=== PATIENT | female | born 1980 | race Caucasian/White ===

== ENCOUNTER 2024-04-08 14:50 | Outpatient (AMB) | payer OTHER, SELFPAY ==
--- NOTE | 2024-04-08 14:52 | MHC.OFFVIS ---
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 Prior hx of colo/egd? EGD 2015. No colo. Concerns/Questions? [facility] 01/2024 for diverticulitis. GERD sx and abd pain. Post cholecystectomy. Pharmacy verified? [facility] [employer] [facility] Required: No Allergies adhesive Allergy (Mild, Verified 04/08/24 14:57) Rash fexofenadine [From Linda] Allergy (Unknown, Verified 04/08/24 14:57) Unknown latex Allergy (Unknown, Verified 04/08/24 14:57) Unknown paroxetine [From Paxil] Allergy (Unknown, Verified 04/08/24 14:57) Unknown valacyclovir Allergy (Unknown, Verified 04/08/24 14:57) Unknown HPI HPI Diverticulitis: Details: 43-year-old female with past medical history of PCOS, hyperlipidemia, obesity, history of breast CA in remission, anxiety, diverticulitis H pylori is here today for initial consultation. Patient was sent to us by her PCP. Patient has been seen in February in the ED for left lower quadrant pain. Patient was diagnosed with diverticulitis. At that time she had mild leukocytosis and sigmoid colon diverticulitis was found on CT scan. Prior to that patient was tested for H pylori, came back positive and treatment was sent for her to eradicate the bacteria. Patient is status post cholecystectomy and was having severe epigastric pain back in 2015 when she had upper endoscopy. Patient has been dealing with GI issues since then. Patient does not remember being on any medications to help her with diarrhea. Just recently patient reports that she is more constipated than anything. No more loose stools. Patient does not remember she ever was evaluated for celiac or for inflammatory bowel disease. Today patient reports that she has not had left lower quadrant pain for some time. During the episode she was on clear liquid diet for few days low fiber. However patient reports that she had to be placed on antibiotics twice as her pain would not go away with 1st round of antibiotic. Patient was placed on Augmentin. Patient denies any melena, hematochezia, unintentional weight loss or ribbon like stools. Never had colonoscopy in the past. No family history of CRC. Not on any anticoagulation medication. Patient has no issues with anesthesia. CT scan from ER was found to have thickening of the endometrium and patient just had a DIC in March. Awaiting still for results. Patient denies any nausea or vomiting. Currently she started taking Zepbound. Previously was taking Ozempic, however she was unable to get it covered. She has been on tirzepatide for the last couple months. Patient is trying to lose weight as she believes that lot of her issues are related to her being overweight. [facility] Medical History (Updated 04/08/24 @ 20:33 by Dodie Arthur [facility]) History of Helicobacter pylori infection Breast implant status delivery delivered Diverticulitis Migraine GERD (gastroesophageal reflux disease) Breast cancer Anxiety Hypercholesteremia Surgical History H/O lumpectomy H/O hernia repair History of mastectomy, total Hx of cholecystectomy (~2000) Family History Maternal Grandmother Breast CA Brother Colitis Social History Alcohol intake: current Comment: Occasional Review of Systems Const Denies weight gain and Denies weight loss ENT Reports no additional complaints, Denies dysphagia and Denies odynophagia Card Reports no additional complaints Resp Reports no additional complaints GI Reports abdominal pain (Occasional left lower quadrant), Denies belching, Denies melena, Denies bloating, Denies change in bowel habits, Reports constipation, Denies dysphagia, Denies excessive flatus, Reports dyspepsia, Reports heartburn, Denies diarrhea, Denies loose stools, Denies nausea, Denies odynophagia and Denies vomiting Reports no additional complaints Musc Reports no additional complaints Neuro Reports no additional complaints Psych Reports no additional complaints Endo Reports no additional complaints Physical Exam Vital Signs: Last Vital Signs Pulse 80 04/08/24 15:00 BP 116/74 04/08/24 15:00 Pulse Ox 97 04/08/24 15:00 Oxygen Delivery Method Room Air 01/03/25 15:00 BMI result Body Mass Index 43.3 Const General: healthy appearing and no acute distress Nutritional Appearance: obese Orientation/consciousness: patient oriented x3 Resp Effort & Inspection: normal respiratory effort, able to speak in complete sentences, no tracheal deviation and symmetric chest movement Auscultation: clear to auscultation bilaterally Cardio Rate: regular rate GI Inspection: Yes normal to inspection, No distended and Yes obesity Palpation (GI): Soft to palpation, not firm, nontender and No hepatosplenomegaly present Auscultation: normal bowel sounds General: Yes no CVA tenderness Back/Spine/Pelvis Back: no CVA tenderness Skin General skin exam: elasticity normal, turgor normal and dry skin Neuro General: patient oriented x3 Psych Appearance: grossly normal Mental Status: mental status grossly normal Assessment & Plan Assessment & Plan (1) Postprandial abdominal bloating: Code(s): R14.0 - Abdominal distension (gaseous) (2) GERD (gastroesophageal reflux disease): Code(s): K21.9 - Gastro-esophageal reflux disease without esophagitis Qualifiers: Esophagitis presence: esophagitis presence not specified Qualified Code(s): K21.9 - Gastro-esophageal reflux disease without esophagitis (3) Constipation: Code(s): K59.00 - Constipation, unspecified Qualifiers: Constipation type: slow transit constipation Qualified Code(s): K59.01 - Slow transit constipation (4) Postprandial diarrhea: Code(s): K52.9 - Noninfective gastroenteritis and colitis, unspecified (5) History of diverticulitis of colon: Code(s): Z87.19 - Personal history of other diseases of the digestive system (6) History of Helicobacter pylori infection: Code(s): Z86.19 - Personal history of other infectious and parasitic diseases Category: Medical Plan Diagnosed with diverticulitis in February. Patient reports that her mom also has history of diverticulitis as well as her brother. Patient will need to move her bowels better, okay to take at this time fiber with pre/probiotics. She was encouraged to increase fluid intake and activity to promote better bowel motility. Patient can take MiraLax if she will have abdominal pain to help her empty her bowels better. Colonoscopy is scheduled for patient for the end of this month. Patient had tested positive for H pylori in the past we will send her for upper endoscopy, however patient should have H pylori breath test prior to going for procedure. Patient had no issues with anesthesia in the past. No history of sleep apnea. Not on any anticoagulation medication. Patient denies any cardiac or respiratory symptoms. Just recently underwent sedation for endometrial biopsy. Patient will follow-up in the office after the procedure. Patient will call our office if she will have any GI concerning symptoms. She is agreeable to current plan of care and verbalizes understanding of instructions. She was given the opportunity to ask questions and all questions answered. Thank you for allowing me to participate in her care Orders: Orders H Pylori Breath Test Today K21.9 - Gastro-esophageal reflux disease without esophagitis Medications: New bisacodyl (Dulcolax (bisacodyl)) take 4 tabs at noon the day before your colonoscopy 20 mg (4 x 5 mg) PO ONCE 1 day 4 tabs 0RF Z12.11 - Encounter for screening for malignant neoplasm of colon polyethylene glycol 3350 (Miralax) As directed by gastroenterology department at [facility] 238 grams PO ONCE 238 grams 0RF Z12.11 - Encounter for screening for malignant neoplasm of colon Coding Level of Care Code New Pt Level 4 (99868) Diagnoses Postprandial abdominal bloating R14.0 Gastroesophageal reflux disease, unspecified whether esophagitis present K21.9 Esophagitis presence: esophagitis presence not specified Slow transit constipation K59.01 Constipation type: slow transit constipation Postprandial diarrhea K52.9 History of diverticulitis of colon Z87.19 History of Helicobacter pylori infection Z86.19 Time Spent (min) 45 Comment 30 minutes spent with patient and additional 15 minutes spent reviewing her records
[2024-04-08 15:00] VITALS: BP 116/74; PULSE 80; O2SAT 97; BMI 43.3
--- OUTSIDE RECORDS SUMMARY | 2024-04-08 16:07 | XMS_ITS | Continuity of Care Document ---
Author Organization 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 THERAPIST ASSISTANT Oncolog y Address [address] [place] [address]- Care Team Providers Care Oncology Technician Name Role Phone Cristian CONCEPCION, Melany Longo Primary Care Physician Encounter [facility] Date(s): 03/01/24 - 03/31/24 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 THERAPIST ASSISTANT Oncology [address] [place] [id number] Encounter Type: Triage Allergies, Adverse Reactions, Alerts Substance Criticality Severity Reaction Reaction Severity Status Paxil eye dilation CNC effects Active Adhesive Bandage eats my ski n paper tape severe reaction per pt Active Latex swelling Active valACYclovir hives whole body Active Linda whole body rash Acti ve Immunizations Given and Recorded Vaccine Date Status Refusal Reason SARS-CoV-2 (COVID-19) mRNA BNT-162b2 vac 05/10/21 Recorded SARS-CoV-2 (COVID-19) mRNA BNT-162b2 vac 08/01/20 Given pneumococcal 23-valent vaccine 02/04/19 Given pneumococcal 13-valent vaccine 11/25/18 Given influenza virus vaccine, live 1 01/02/18 Given influenza virus vaccine, inactivated 2 01/16/17 Gi venessa influenza virus vaccine, inactivated 3 07/13/15 Gi venessa tetanus/diphtheria/pertussis, acel(Tdap) 07/13/15 Given Diphtheria/Tet/Pertussis, Acel (oldterm) 4 10/18/10 Given diphtheria-tetanus toxoids (DT) 5 08/30/98 Given 1Admin Note: [facility] 2Result Comment: [id number] 3Admin Note: Declined 4Admin Note: declined 5Admin Note: Routine Medications acetaminophen-oxyCODONE 325 mg-5 mg oral tablet 1, tablet, By Mouth, Every 6 hours, PRN, # 12 tablet, Refills 0, Tot. Refills 0, Maintenance, Pain , Severe, 05/02/23 7:59:00 PM EST, Route to Pharmacy Electronically, [facility] Tablet, Partial fill upon patient request if the prescription is for a schedule II opioid drug., 163, cm, 05/02/23 18:05:00 EST, Height, 101, kg, 05/02/23 18:05:00 EST, Dry Weight Start Date: 05/02/23 Status: Ordered Quantity: 12.0 Unit: tablet Repeat number: 1 atorvastatin 20 mg oral tablet 1 tablet = 20 mg, By Mouth, Daily, 0 Refills, Maintenance, 03/15/24 9:19:00 AM EST, Partial fill upon patient request if the prescription is for a schedule II opioid drug. Start Date: 03/15/24 Status: Ordered Repeat number: 1 buPROPion 150 mg/24 hours (XL) oral tablet, extended release 1 tablet, By Mouth, Every 24 hours, # 30 tablet, 2 Refills, Maintenance, 12/31/21 8:52:00 AM EDT, [facility], 30, TAKE ONE TABLET BY MOUTH EVERY 24 HOURS, 163, cm, 12/19/21 10:57:00 EDT, Height, 111.9, kg, 12/23/21 12:23:00 EDT, Dry Weight Start Date: 12/31/21 Status: Ordered Quantity: 30.0 Unit: tablet Repeat number: 1 cephalexin monohydrate 500 mg oral capsule 1 capsule = 500 mg, By Mouth, 4 times a day, # 28 capsule, 0 Refills, Maintenance, 05/02/23 7:58:00 PM EST, Capsule, [facility], Partial fill upon patient request if the prescriptionis for a schedule II opioid drug., 163, cm, 05/02/23 18:05:00 EST, Height, 101, kg, 05/02/23 18:05:00 EST, Dry Weight Start Date: 05/02/23 Stop Date: 05/09/23 Status: Ordered Quantity: 28.0 Unit: capsule Repeat number: 1 cholecalciferol 2000 intl units oral capsule 1 capsule = 2,000 International_Units, By Mouth, Daily, Maintenance, 09/25/21 4:33:00 PM EDT, Capsule Start Date: 09/25/21 Status: Ordered Repeat number: 1 escitalopram 10 mg oral tablet 1 tablet = 10 mg, By Mouth, Daily, # 90 tablet, 0 Refills, Maintenance, 01/07/22 4:35:00 PM EDT, Tablet, Partial fill upon patient request if the prescription is for a schedule II opioid drug. Start Date: 01/07/22 Status: Ordered Quantity: 90.0 Unit: tablet Repeat number: 1 Flomax 0.4 mg oral capsule 0.4 mg, 1, capsule, By Mouth, Daily, # 7 capsule, Refills 0, Tot. Refills 0, Maintenance, 05/02/23 7:58:00 PM EST, Route to Pharmacy Electronically, [facility], Partial fill upon patient request if the prescription is for a schedule II opioid drug., 163, cm, 05/02/23 18:05:00 EST, Height, 101, kg, 05/02/23 18:05:00 EST, Dry Weight Start Date: 05/02/23 Stop Date: 05/09/23 Status: Ordered Quantity: 7.0 Unit: capsule Repeat number: 1 hydroCHLOROthiazide 12.5 mg oral capsule 1 capsule = 12.5 mg, By Mouth, Daily, # 30 capsule, 0 Refills, Maintenance, 01/21/22 11:12:00 AM EDT, Capsule, Partial fill upon patient request if the prescription is for a schedule II opioid drug. Start Date: 01/21/22 Status: Ordered Quantity: 30.0 Unit: capsule Repeat number: 1 ibuprofen 600 mg oral tablet 600 mg, 1, tablet, By Mouth, 4 times a day, # 120 tablet, Refills 0, Tot. Refills 0, Maintenance, 03/31/24 10:55:00 AM EST, Route to Pharmacy Electronically, [facility], Partial fill upon patient request if the prescription is for a schedule II opioid drug., 163, cm, 03/22/24 16:07:00 EST, Height, 116.1, kg, 03/31/24 9:30:00 EST, Dry Weight Start Date: 03/31/24 Status: Ordered Quantity: 120.0 Unit: tablet Repeat number: 1 Multi Vitamin+ 0 Refills, Maintenance, 09/12/19 11:10:00 AM EDT Start Date: 09/12/19 Status: Ordered Repeat number: 1 ondansetron 4 mg oral tablet, disintegrating 1 tablet = 4 mg, By Mouth, Every 8 hours, PRN as needed for nausea/vomiting, # 12 tablet, 0 Refills, Maintenance, 05/02/23 8:00:00 PM EST, DIS Tablet, [facility], Partial fill upon patient request if the prescription is for a schedule II opioid drug., 163, cm, 05/02/23 18:05:00 EST, Height, 101, kg, 05/02/23 18:05:00 EST, Dry Weight Start Date: 05/02/23 Status: Ordered Quantity: 12.0 Unit: tablet Repeat number: 1 Pepcid 20 mg oral tablet 1 tablet = 20 mg, By Mouth, Daily, Maintenance, 09/25/21 4:33:00 PM EDT, Tablet Start Date: 09/25/21 Status: Ordered Repeat number: 1 tamoxifen 20 mg oral tablet See Instructions, TAKE ONE TABLET BY MOUTH EVERY DAY, # 90 tablet, 3 Refills, Maintenance, 12/31/23 8:54:00 AM EDT, [facility], 163, cm, 09/15/23 12:59:00 EDT, Height, 109.9, kg, 09/15/23 12:59:00 EDT, Dry Weight Start Date: 12/31/23 Status: Ordered Quantity: 90.0 Unit: tablet Repeat number: 1 Tylenol Extra Strength 500 mg oral tablet 1 tablet = 500 mg, By Mouth, Every 4 hours, PRN as needed for fever, # 50 tablet, 0 Refills, Maintenance, 03/31/24 10:55:00 AM EST, Tablet, [facility], Partial fill upon patient request if the prescription is for a schedule II opioid drug., 163, cm, 03/22/24 16:07:00 EST, Height, 116.1, kg, 03/31/24 9:30:00 EST, Dry Weight Start Date: 03/31/24 Status: Ordered Quantity: 50.0 Unit: tablet Repeat number: 1 vitamin c vitamin c, See Instructions, Refills 0, Maintenance, 10/04/19 9:15:00 AM EDT, Supply Start Date: 10/04/19 Status: Ordered Repeat number: 1 Wegovy (1.7 mg dose) subcutaneous solution = 1.7 mg, Subcutaneous Injection, Every week, in the abdomen, thigh, or upper arm, # 3 mL, 0 Refills, Maintenance, 03/18/23 9:15:00 AM EST, Solution, Partial fill upon patient request if the prescription is for a schedule II opioid drug. Start Date: 03/18/23 Stop Date: 04/15/23 Status: Ordered Quantity: 3.0 Unit: mL Repeat number: 1 Zepbound 2.5 mg/0.5 mL subcutaneous solution = 2.5 mg, Subcutaneous Infusion, 0 Refills, Maintenance, 03/15/24 9:19:00 AM EST, Partial fill uponpatient request if the prescription is for a schedule II opioid drug. Start Date: 03/15/24 Status: Ordered Repeat number: 1 Problem List Condition Confirmation Course Effective Dates Status Health Status Informant Abnormal uterine bleeding (AUB) Confirmed Active Acne Confirmed 1998 Active Anxiety Confirmed Active Diverticulitis Confirmed Active Thickened endometrium Confirmed Active Gastroesophageal reflux disease Confirmed Active Hypercholesterolemia Confirmed Active Nephrolithiasis Confirmed Active Breast cancer of lower-outer quadrant of right female breast Confirmed Active Migraine Confirmed 2005 Active PCOS - Polycystic ovarian syndrome Confirmed 1996 Active Pericardial cyst Confirmed Active Trauma and stressor-related disorder Confirmed Active MDD (major depressive disorder), recurrent episode, moderate Confirmed Active Seasonal affective disorder Confirmed 1998 Active Severe obesity Confirmed Active Social History Social History Type Response Smoking Status Former smoker entered on: 07/31/14 Sex Sex Representation Female (finding) Implantable Device List Procedure Provider Procedure Date Device Type Site Reconstruction Breast with Insertion Rito Maier MD 12/23/21 Unknown Breast Left Device Identifier Serial Number Lot or Batch Number Manufacturing Date Expiration Date Distinct Identification Code MRI Safety Implantable Status Assigning Authority Unknown [id number] Unknown Unknown 11/04/25 Unknown Unknown Active Unknown Procedure Provider Procedure Date Device Type Site Reconstruction Breast with Insertion Rito Maier MD 02/23/19 Unknown Breast Right Device Identifier Serial Number Lot or Batch Number Manufacturing Date Expiration Date Distinct Identification Code MRI Safety Implantable Status Assigning Authority Unknown [id number] Unknown 08/04/23 Unknown Unknown Active Unknown Procedure Provider Procedure Date Device Type Site Reconstruction Breast with Insertion Rito Maier MD 02/23/19 Unknown Breast Left Device Identifier Serial Number Lot or Batch Number Manufacturing Date Expiration Date Distinct Identification Code MRI Safety Implantable Status Assigning Authority Unknown [id number] Unknown 07/05/23 Unknown Unknown Active Unknown Patient Care team information Care Team Personnel Name: Anuradha Melton Position: [facility] Onco RN Member Role: Primary Care Nurse Name: Rakel Lenz RN Position: [facility] RN Member Role: Primary Care Nurse Name: Shira Bond RN Position: [facility] RN Member Role: Primary Care Nurse Name: Jailene Mendieta RN Position: [facility] RN Member Role: Primary Care Nurse Name: Melany Foster NP Position: [facility] Associate Professional Member Role: PCP Address: [address] [place] [address] Emergency Medicine - [place], [place] [address] Telecom: Name: Suyapa Fabian MD Position: [facility] Physician - Oncology Member Role: Lifetime Consulting Physician Address: [address] [place] [address] Hematology Oncology [place], [place] [address] Telecom: Name: Yesenia Parish RN Position: [facility] RN Member Role: Primary Care Nurse Name: Annalise Mosquera RN Position: [facility] RN Member Role: Primary Care Nurse Care Team Related Persons Name: NAGI DOS SANTOS Name: ELIZABETH WHITMAN Insurance Providers Guarantor name: [employer] Information #: 1 Payer: [facility] NON P HMO Member Number: NA Policy Number: NA Group Number: NA
--- OUTSIDE RECORDS SUMMARY | 2024-04-08 16:08 | XMS_ITS ---
Author Organization [facility] Address [address], [place] [id number] Care Team Providers Care Training Assistant Name Role Phone WESLEY GÓMEZ Primary Care Provider Melany Foster Unavailable [phone] REASON FOR VISIT Rectal bleed - Hemorrhoid? Encounters Encounter Location Date Provider Diagnosis [facility] [place], [facility] [address], [place] [phone] 02/17/2024 Melany Foster PLAN OF TREATMENT Next Appt Details Provider Name:Melany Foster, 04/20/2024 09:30:00 AM, [address], [place], [phone], Progress Notes * BALBINA WHITMANDOB: [birth year] (43 yo F)Acc No.[id number]:02/17/2024 Patient:??BALBINA WHITMAN :1980?Age:43 Y?Sex:Fe male Phone: Address:[address] [place] [address] * true * Date:??
--- OUTSIDE RECORDS SUMMARY | 2024-04-08 16:08 | XMS_ITS | Patient Health Record ---
Author Organization [facility] Address [address], [place] [id number] Care Team Providers Care Explosives Detonator Name Role Phone WESLEY GÓMEZ Primary Care Provider [phone] Melany Foster Unavailable [phone] BEREKET CLOUD Unavailable [phone] ALLERGIES Allergen (clinical drug ingredient) Drug/Non Drug Allergy documented on EMR Reaction Allergy Type Onset Date Status surgical tape (uncoded) rash Allergy Active Linda hives Drug Allergy Active Biaxin Hives Drug Allergy Active paroxetine Paxil , Severity Observation:Mi ld to moderate , Drug Allergy Active valacyclovir Valtrex hives Drug Allergy Acti ve Adhesive rash Allergy Active Latex Latex rash Allergy Active metronidazole Metronidazole diarrhea, vomiting Drug Allergy Active REASON FOR REFERRAL Reason Atypical mole on lef t upper thigh. [facility] please Diagnosis 1 Atypical mole (D22.9 ) Referral Organization [facility] Referring Provider First Name Melany Referring Provider Last Name Cristian Referring Provider Speciality Nurse Prac titioner Referred Organization [facility] Referred Address [address], [id number], Referred Provider Specialty Dermatology General Notes LYNNETTE PAIZ 0 04/21/2023 09:02:52 AM >[facility] not in network with pts insurance- will need to find different specialist, LYNNETTE PAIZ 05/05/2023 10:14:58 AM >[facility] is in network-will send there instead, LYNNETTE PAIZ 05/05/2023 10:52:38 AM >demographics, referral and office note faxed to [facility] [phone] Referral Priority Routine Reason History of thyroid n odule. Thyroid- neck- soft tissue ultrasound. [facility] please Diagnosis 1 Thyroid nodule (E04. 1) Referral Organization [facility] Referring Provider First Name Melany Referring Provider Last Name Cristian Referring Provider Speciality Nurse Marvel montague Referred Organization [facility] Referred Address [address] [place], [id number], Referred Provider Specialty Radiology General Notes LYNNETTE PAIZ 0 2023 03:00:30 PM >[facility] form, referall and ov note faxed to [facility] [phone], LYNNETTE PAIZ 04/14/2023 02:14:13 PM >per [facility]- soft tissue is not needed. Order has been corrected and OK'd by provider. Faxed to [facility] Referral Priority Routine Reason 24 Holter Monitor AN D ECHO please for palpitations and new murmur Diagnosis 1 Palpitations (R00.2) Diagnosis 2 History of breast ca ncer in female (Z85.3) Diagnosis 3 Murmur (R01.1) Referral Organization [facility] Referring Provider First Name Melany Referring Provider Last Name Cristian Referring Provider Speciality Nurse Marvel montague Referred Organization [facility] Referred Address [address] [place], [id number], Referred Provider Specialty Cardiology General Notes LYNNETTE PAIZ 0 09/24/2023 09:32:39 AM >[facility] form completed- waiting to be scanned into chart, LYNNETTE PAIZ 09/24/2023 03:21:45 PM >order form, EKG, demographics, insurance info, order and office note faxed to [facility] [phone] Referral Priority Routine Reason Dr. Grover for evaluat ion and treatment of umbilical hernia Diagnosis 1 Umbilical hernia wit hout obstruction and without gangrene (K42.9) Referral Organization [facility] Referring Provider First Name Melany Referring Provider Last Name Cristian Referring Provider Speciality Nurse Marvel montague Referred Organization [facility] Referred Address [address] [facility] [id number] Referred Provider Specialty General Surg anup General Notes LYNNETTE PAIZ 0 09/23/2023 09:50:56 AM >demographics, insurance info, referral and office note faxed to [facility] for Dr. Grover [phone] Referral Priority Routine Reason Please refer to [facility] to help with choices given food sensitivities and obesity Diagnosis 1 Obesity (BMI 30-39.9 ) (E66.9) Diagnosis 2 Bloating (R14.0) Diagnosis 3 Prediabetes (R73.03) Diagnosis 4 Gastroesophageal ref lux disease without esophagitis (K21.9) Referral Organization [facility] Referring Provider First Name Melany Referring Provider Last Name Cristian Referring Provider Speciality Nurse Marvel montague Referred Organization [facility] Referred Address [address] [place] [id number], Referred Provider Specialty Nutrition General Notes ROMELIA PAIZAIL 0 09/23/2023 09:58:15 AM >demographics, insurance info, referral and office note faxed to [facility] [phone] Referral Priority Routine Reason Thickened endometriu m on CT (from [facility] ER), and amenorrhea, with significant family history of CA, and her history of Breast CA. please refer for evaluation Diagnosis 1 Thickened endometriu m (R93.89) Referral Organization [facility] Referring Provider First Name Melany Referring Provider Last Name Cristian Referring Provider Speciality Nurse Marvel montague Referred Organization [facility] Referred Address [address] [place] [id number] Referred Provider Specialty Gynecologic Oncology General Notes ROMELIA PAIZAIL 1 04/26/2023 02:11:47 PM >[facility] Specialty appt request form, demographics, insurance info, referral, office note and CT faxed to [facility] [phone] Referral Priority Routine Reason Please refer to [facility]. She has a new diagnosis of diverticulitis. Post treatment her symptoms resume. She continues with rectal bleeding and abdominal pain. Please refer for possible colonoscopy, evaluation and treatment Diagnosis 1 Acute diverticulitis (K57.92) Referral Organization [facility] Referring Provider First Name Melany Referring Provider Last Name Cristian Referring Provider Speciality Nurse Prac clari Referred Organization [facility] Referred Address [address] [place] [id number] Referred Provider Specialty Gastroentero logy General Notes ROMELIA PAIZAIL 1 04/18/2023 02:25:35 PM >demographics, insurance info, referral, on-call message, most recent office note, ER note and CT scan obtained in ER have been faxed to [facility] [phone] Referral Priority Stat MEDICATIONS Medication SIG (Take, Route, Frequency, Duration) Notes Start Date End Date Status TAMOXIFEN CITRATE 20MG TABS TAKE ONE TAB LET BY MOUTH EVERY DAY 10/21/2021 Active Ondansetron 4 MG 1 tablet on the tongue and allow to dissolve Orally once every 8 hrs for 10 days 10/26/2023 Not-Taking Vitamin D3 Active Wegovy 2.4 MG/0.75ML 0.75 mL Subcutaneous once a week for 30 days Not-Taking Benzonatate 200 MG 1 capsule as needed Orally two times a day for 7 days 03/18/2024 Active Famotidine 40 MG 1 tablet Orally Once a day 12/01/2023 Active Escitalopram Oxalate 10 MG TAKE ONE TABL ET BY MOUTH EVERY DAY Active Metamucil 0.36 GM as directed Orally Active hydroCHLOROthiazide 12.5 MG TAKE ONE CAP PORTILLO BY MOUTH EVERY DAY Active buPROPion HCl ER (XL) 150 MG TAKE ONE TABLET BY MOUTH EVERY DAY EVERY 24 HOURS for 90 Active Zepbound 5 MG/0.5ML 5 mg/ 0.5 mL Subcutaneous once a week for 30 days 03/18/2024 04/17/2024 Active Atorvastatin Calcium 20 MG TAKE 1 TABLET BY MOUTH ONCE DAILY IN THE EVENING. Active Albuterol Sulfate HFA 108 (90 Base) MCG/ACT 2 puff as needed Inhalation every 4 hrs for 30 days 03/18/2024 Active Probiotic Active Super B Complex Acti ve SOCIAL HISTORY Tobacco Use: Social History Observation Description Date Details (start date - stop date) Former Smoker NA - NA Sex Assigned At : Social History Observation Description Sex Assigned At Unknown Household Question Answer Notes Marital status: Number of adults in household: 2 Number of children in household: 2 Tobacco Use/Smoking Question Answer Notes Tobacco use: former smoker How long has it been since you last smoked? > 10 years Sexual History Question Answer Notes Had sex in the past 12 months (vaginal, oral, or anal)? Yes with Men only Section Notes: Lives in [facility] Lives in [facility] with & 2 children Lives in [facility] Lives in [facility] Lives in [facility] with & 2 children [place] children [place] 2 children [place] 2 children [place] 2 children [place] 2 children [place] 2 children [place] & 2 children [place] 2 children [place] in [place] with & 2 children Lives in [place] with & 2 children Lives in [place] with & 2 children Lives in [place] with & 2 children Lives in [place], [place] with & 2 children PROBLEMS Problem Type ICD Code Onset Dates Problem Status W/U Status Risk SNOMED Code Notes Problem Polycystic ovarian syndrome (E28.2) Active confirmed 912390013 Problem Mixed hyperlipidemia (E78.2) Active confirmed 779761532 Problem Essential (primary) hypertension (I10) Active confirmed 20311770 Problem Diverticulitis (K57.92) Active confirmed 167136355 Problem Gastroesophageal reflux disease without esophagitis (K21.9) Active confirmed 850327837 Problem Obesity (BMI 30-39.9) (E66.9) Active confirmed 472236804 Problem Thyroid nodule (E04.1) Active confirmed 058778197 Problem History of breast cancer in female (Z85.3) Active confirmed 181345536 Problem Severe obesity (BMI >= 40) (E66.01) Active confirmed 571507808 VITAL SIGNS Heart Rate 83 /min 02/04/2024 Temperature 98.7 degrees Fahrenheit 02/04/2024 Height-cm 162.56 cm 03/18/2024 Oximetry 98 % 02/04/2024 Blood pressure diastolic 80 mm Hg 02/04/2024 Weight-kg 115.21 kg 02/04/2024 Height 64 in 03/18/2024 Blood pressure systolic 124 mm Hg 02/04/2024 Weight 254.0 lbs 02/04/2024 BMI 43.59 kg/m2 02/04/2024 Encounters Encounter Location Date Provider Diagnosis [facility] [address] [place] [id number] 05/21/2023 WESLEY GÓMEZ [facility] [id number] 09/17/2023 Melany Foster [address] [id number] 09/23/2023 Melany Foster [address] [id number] 12/30/2023 Melany Foster [address] [id number] 2023 Melany Foster Thyroid nodule E04.1 ; Atypical mole D22.9 ; Obesity (BMI 30-39.9) E66.9 and Encounter to discuss test results Z71.[address] [id number] 05/21/2023 Melany Foster Mixed hyperlipidemia E78.2 ; Essential (primary) hypertension I10 ; Gastroesophageal reflux disease without esophagitis K21.9 ; Polycystic ovarian syndrome E28.2 and Obesity (BMI 30-39.9) E66.[address] [id number] 09/22/2023 Melany Foster Bloating R14.0 ; Encounter for general adult medical examination without abnormal findings Z00.00 ; Gastroesophageal reflux disease without esophagitis K21.9 ; Other fatigue R53.83 ; Umbilical hernia without obstruction and without gangrene K42.9 ; Encounter for screening for depression Z13.31 ; Encounter for screening for other disorder Z13.89 ; Mixed hyperlipidemia E78.2 ; Essential (primary) hypertension I10 ; Obesity (BMI 30-39.9) E66.9 ; Localized swelling of both lower legs R22.43 ; Murmur R01.1 and Palpitations R00.[address] [id number] 10/23/2023 Melany Foster Positive H. pylori t est A04.[address] [id number] 11/02/2023 WESLEY GÓMEZ Gastroesophageal ref lux disease without esophagitis K21.9 and H. pylori infection A04.[address] [id number] 11/18/2023 Melany Foster Helicobacter pylori (H. pylori) A04.[address] [place], [place] [id number] 12/01/2023 Melany Foster Gastroesophageal ref lux disease without esophagitis K21.9 ; Mixed hyperlipidemia E78.2 ; Essential (primary) hypertension I10 and Severe obesity (BMI >= 40) E66.01 [facility] [address], [place] [id number] 02/04/2024 Melnaymatthew Foster Severe obesity (BMI >= 40) E66.01 ; Thickened endometrium R93.89 ; Mixed hyperlipidemia E78.2 and Gastroesophageal reflux disease without esophagitis K21.9 [facility] [address], [place] [id number] 02/26/2024 Melany Foster Mixed hyperlipidemia E78.2 ; Severe obesity (BMI >= 40) E66.01 and Diverticulitis K57.[address] [id number] 03/18/2024 Melany Foster Acute cough R05.1 an d Obesity (BMI 30-39.9) E66.[address] [id number] 04/10/[address] [id number] 10/26/2023 Melany [facility], [address] [id number] 11/02/2023 WESLEY [facility], [address] [id number] 11/19/2023 Melany [facility], [address] [id number] 11/27/2023 BEREKET CLOUD [facility], [address] [id number] 12/01/2023 Melany [facility], [address] [id number] 02/12/2024 Melany [facility], [address] [id number] 02/12/2024 Melany [facility], [address] [id number] 02/13/2024 Melany Foster Acute diverticulitis K57.[address], [place] [id number] 02/17/2024 Melany Foster ASSESSMENTS Encounter Date Diagnosis Assessment Notes Treatment Notes Treatment Clinical Notes Section Notes 2023 Atypical mole (ICD-10 - D22.9) Janie has a history of complicated breast CA She is concerned about the change of a mole on her left upper thigh Given her history, will refer her to Dermatology for a skin check 05/21/2023 Mixed hyperlipidemia (ICD-10 - E78.2) Continue current statin Low fat, low cholesterol diet Exercise Check lipids, LFTs 05/21/2023 Essential (primary) hypertension (ICD-10 - I10) Continue medication as directed Low-salt diet Weight management Regular exercise Yearly microalbumin 2023 Thyroid nodule (ICD-10 - E04.1) Will obtain Ultrasound to assess nodule to make sure there is no change 09/22/2023 Encounter for general adult medical examination without abnormal findings (ICD-10 - Z00.00) We discussed short and long-term health goals. The exam today was without concerns, states feel safe at home. Reports having working CO2 and Smoke detectors. Encouraged to wear sunscreen. Reports wearing a seatbelt when driving or as a passenger. Encourage regular exercise of moderate intensity 30 min 5x/week. Labs reviewed EKG- Sinus Rhythm Rate- 70 MN Int 194 QRS dur 104 QT/QTc 324/344 10/23/2023 Positive H. pylori test (ICD-10 - A04.8) [facility] MAP tests reviewed H.Pylori was positive- will treat. Unable to tolerate Omeprazole- causes lower extremity edema- will continue on Pepcid AC that she takes at this time. FU 4 weeks post treatment Other results are indicative of residential PPI use. Will start pro/pre biotic after h. pylori treatment Will go and get food sensitivity testing done within the next couple of weeks 11/02/2023 Gastroesophageal reflux disease without esophagitis (ICD-10 - K21.9) 11/02/2023 H. pylori infection (ICD-10 - A04.8) We will hold off starting this new regimen for 1 more week, she will resume treatment once her ALONZO symptoms joycelyn. She should continue metamucil and probiotics in the interim-she is agreeable to this plan 11/18/2023 Helicobacter pylori (H. pylori) (ICD-10 - A04.8) Had adverse reaction to original antibiotics- saw another provider who changed her antibiotics. Janie states that she started with a rash on her chest again yesterday and this is now spreading up to her neck. She states that it is a little itchy. Denies a scratchy throat. Recommended taking Benadryl- however she is the sole provider with her children and this makes her sleepy. Recommended another non-drowsy antihistamine to help. Discussed concerning symptoms of allergic reaction and when to seek emergency medical care Recommended to stop taking antibiotics at this time- likely that she is allergic to the flagyl in the antibiotics. Will repeat h.pylori breath test Call the office if rash does not subside in 24-48 hours Recommend continue pro-prebiotics and pepcid - limit lactose food Monitor stools and GI symtpoms FU 2 weeks 12/01/2023 Mixed hyperlipidemia (ICD-10 - E78.2) Continue current statin Low fat, low cholesterol diet Exercise Check lipids, LFTs 09/22/2023 Bloating (ICD-10 - R14.0) 12/01/2023 Gastroesophageal reflux disease without esophagitis (ICD-10 - K21.9) Increase Famotidine to 40mg to help with acid reflux Continue Psyllium Husk and Probiotic 02/04/2024 Severe obesity (BMI >= 40) (ICD-10 - E66.01) Common treatments for overweight and obesity include losing weight through healthy eating, being more physically active, and making other changes to your usual habits. Weight-management programs may help some people lose weight or keep from regaining lost weight. Some people who have obesity are unable to lose enough weight to improve their health or are unable to keep from regaining weight. In such cases, a doctor may consider adding other treatments, including weight-loss medicines, weight-loss devices, or bariatric surgery. Experts recommend losing 5 to 10 percent of your body weight within the first 6 months of treatment. If you weigh 200 pounds, this means losing as little as 10 pounds. Losing 5 to 10 percent of your weight may help lower your chances of developing health problems related to overweight and obesity improve health problems related to overweight and obesity, such as high blood pressure and high cholesterol levels. Following a healthy eating plan with fewer calories is often the first step in trying to treat overweight and obesity. People who are overweight or have obesity should also start regular physical activity when they begin their healthy eating plan. Being active may help you use calories. Regular physical activity may help you stay at a healthy weight. Changing your eating and physical activity habits and lifestyle is difficult, but with a plan, effort, regular support, and patience, you may be able to lose weight and improve your health. The following tips may help you think about ways to lose weight, engage in regular physical activity, and improve health over the long-term. Be prepared for set backs they are normal. After a setback, like overeating at a family or workplace gathering, try to regroup and focus on getting back to your healthy eating plan as soon as you can. Try to eat only when you're sitting at your dining room or kitchen table. At work, avoid areas where treats may be available. Track your progress using online food or physical activity trackers, such as the Body Weight Finishing Machine Operator [employer], that can help you keep track of the foods you eat, your physical activity, and your weight. These tools may help you stick with it and stay motivated. Set goals. Having specific goals can help you stay on track. Rather than be more active, set a goal to walk 15 to 30 minutes before work or at lunch on Thursday and Thursday. If you miss a walk on Thursday, pick it up again Thursday. Seek support. Ask for help or encouragement from your family, friends, or health livestock caretaker. You can get support in person, through email or texting, or by talking on the phone. You can also join a support group. Specially trained health professionals can help you change your lifestyle. Has tried months (6-8 months) of diet and lifestyle changes with no success. She has tried intermittent fasting, she has see a amusement park entertainer Will order Zepbound As well as an extended food allergy sensitivity panel, Scripts through [employer], and [employer]. FU 2-3 weeks 02/04/2024 Thickened endometrium (ICD-10 - R93.89) Seen on CT scan when she was in ER Given breast CA and family history of CA will refer to Idalia Braga for further work-up 02/13/2024 Acute diverticulitis (ICD-10 - K57.92) 02/26/2024 Mixed hyperlipidemia (ICD-10 - E78.2) Continue current statin Low fat, low cholesterol diet Exercise Check lipids, LFTs 02/26/2024 Severe obesity (BMI >= 40) (ICD-10 - E66.01) Continue with supplements and lifestyle changes Peer to Peer regarding Zepbound- should be covered after clinical notes are sent to [facility]. Will resubmit at this time FU 3 weeks 03/18/2024 Acute cough (ICD-10 - R05.1) Increase water intake Cool mist humidifier Antihistamine to help with post nasal drip Flonase Albuterol PRN Please call the office if symptoms do not improve 03/18/2024 Obesity (BMI 30-39.9) (ICD-10 - E66.9) Discussed weight and it affect on health status Discussed dietary choices/nutritionis t referral Intermittent fasting Increase exercise as tolerated Increase Zepbound to 5mg weekly FU 4 weeks 02/04/2024 Mixed hyperlipidemia (ICD-10 - E78.2) Continue current statin Low fat, low cholesterol diet Exercise Check lipids, LFTs 02/26/2024 Diverticulitis (ICD-10 - K57.92) Stable at this time Believes she knows her trigger as she ate it the night before both of her flares Continue with GI referral in the event that she continues to have flares and need a colonoscopy 12/01/2023 Essential (primary) hypertension (ICD-10 - I10) Continue medication as directed Low-salt diet Weight management Regular exercise Yearly microalbumin Treatment of hypertension should involve nonpharmacologic therapy (also called lifestyle modification). Dietary salt restriction - In well-controlled randomized trials, the overall impact of moderate sodium reduction is a fall in blood pressure in hypertensive and normotensive individuals of 4.8/2.5 and 1.9/1.1 mmHg, respectively. Weight loss - Weight loss in overweight or obese individuals can lead to a significant fall in blood pressure independent of exercise. DASH diet - The Dietary Approaches to Stop Hypertension (DASH) dietary pattern is high in vegetables, fruits, low-fat dairy products, whole grains, poultry, fish, and nuts and low in sweets, sugar-sweetened beverages, and red meats. The DASH dietary pattern is consequently rich in potassium, magnesium, calcium, protein, and fiber but low in saturated fat, total fat, and cholesterol. Combining the DASH dietary pattern with modest sodium restriction produced an additive antihypertensive effect. Exercise - Aerobic, dynamic resistance and isometric resistance exercise can decrease systolic and diastolic pressure by, on average, 4 to 6 mmHg and 3 mmHg, respectively, independent of weight loss. Limited alcohol intake - Women who consume two or more alcoholic beverages per day and men who have three or more drinks per day have a significantly increased incidence of hypertension compared with nondrinkers. 09/22/2023 Gastroesophageal reflux disease without esophagitis (ICD-10 - K21.9) [facility] Allergy blood test for sensitvities Recommended psyllium husk to see if this helps with heartburn Will also refer to general surgery for possible hernia repair 05/21/2023 Gastroesophageal reflux disease without esophagitis (ICD-10 - K21.9) Well controlled on current med regimen Continue to limit caffeine, high fat, spicy foods Limit ibuprofen/NSAIDs 2023 Obesity (BMI 30-39.9) (ICD-10 - E66.9) Common treatments for overweight and obesity include losing weight through healthy eating, being more physically active, and making other changes to your usual habits. Weight-management programs may help some people lose weight or keep from regaining lost weight. Some people who have obesity are unable to lose enough weight to improve their health or are unable to keep from regaining weight. In such cases, a doctor may consider adding other treatments, including weight-loss medicines, weight-loss devices, or bariatric surgery. Experts recommend losing 5 to 10 percent of your body weight within the first 6 months of treatment. If you weigh 200 pounds, this means losing as little as 10 pounds. Losing 5 to 10 percent of your weight may help lower your chances of developing health problems related to overweight and obesity improve health problems related to overweight and obesity, such as high blood pressure and high cholesterol levels. Following a healthy eating plan with fewer calories is often the first step in trying to treat overweight and obesity. People who are overweight or have obesity should also start regular physical activity when they begin their healthy eating plan. Being active may help you use calories. Regular physical activity may help you stay at a healthy weight. Changing your eating and physical activity habits and lifestyle is difficult, but with a plan, effort, regular support, and patience, you may be able to lose weight and improve your health. The following tips may help you think about ways to lose weight, engage in regular physical activity, and improve health over the long-term. Be prepared for set backs they are normal. After a setback, like overeating at a family or workplace gathering, try to regroup and focus on getting back to your healthy eating plan as soon as you can. Try to eat only when you're sitting at your dining room or kitchen table. At work, avoid areas where treats may be available. Track your progress using online food or physical activity trackers, such as the Body Weight Finishing Machine Operator Automatic, that can help you keep track of the foods you eat, your physical activity, and your weight. These tools may help you stick with it and stay motivated. Set goals. Having specific goals can help you stay on track. Rather than be more active, set a goal to walk 15 to 30 minutes before work or at lunch on Thursday and Thursday. If you miss a walk on Thursday, pick it up again Thursday. Seek support. Ask for help or encouragement from your family, friends, or health livestock caretaker. You can get support in person, through email or texting, or by talking on the phone. You can also join a support group. Specially trained health professionals can help you change your lifestyle. Increase Wegovy 2023 Encounter to discuss test results (ICD-10 - Z71.2) All labs were reviewed and the results were explained to the patient in detail. Total time with patient >30 minutes which includes education and coordination of care. 09/22/2023 Other fatigue (ICD-10 - R53.83) Will change medication and see if this helps with symptoms and sexual health 05/21/2023 Polycystic ovarian syndrome (ICD-10 - E28.2) Educated about PCOS in that it is a hormonal disorder of the ovaries and adrenal glands that occurs over time. PCOS is associated with insulin resistance that causes excess testosterone and virilization characteristics. Often women notice unexplained weight gain. Long-term outcomes of untreated PCOS may include DM, HTN, Heart disease, and endometrial cancer therefore it is important to diagnose and begin treatment as soon as possible. Treatment goals will include: reducing insulin levels, decreasing testosterone production, maintaining healthy endometrium, and reestablishing hormonal balance 12/01/2023 Severe obesity (BMI >= 40) (ICD-10 - E66.01) Common treatments for overweight and obesity include losing weight through healthy eating, being more physically active, and making other changes to your usual habits. Weight-management programs may help some people lose weight or keep from regaining lost weight. Some people who have obesity are unable to lose enough weight to improve their health or are unable to keep from regaining weight. In such cases, a doctor may consider adding other treatments, including weight-loss medicines, weight-loss devices, or bariatric surgery. Experts recommend losing 5 to 10 percent of your body weight within the first 6 months of treatment. If you weigh 200 pounds, this means losing as little as 10 pounds. Losing 5 to 10 percent of your weight may help lower your chances of developing health problems related to overweight and obesity improve health problems related to overweight and obesity, such as high blood pressure and high cholesterol levels. Following a healthy eating plan with fewer calories is often the first step in trying to treat overweight and obesity. People who are overweight or have obesity should also start regular physical activity when they begin their healthy eating plan. Being active may help you use calories. Regular physical activity may help you stay at a healthy weight. Changing your eating and physical activity habits and lifestyle is difficult, but with a plan, effort, regular support, and patience, you may be able to lose weight and improve your health. The following tips may help you think about ways to lose weight, engage in regular physical activity, and improve health over the long-term. Be prepared for set backs they are normal. After a setback, like overeating at a family or workplace gathering, try to regroup and focus on getting back to your healthy eating plan as soon as you can. Try to eat only when you're sitting at your dining room or kitchen table. At work, avoid areas where treats may be available. Track your progress using online food or physical activity trackers, such as the Body Weight Finishing Machine Operator Automatic, that can help you keep track of the foods you eat, your physical activity, and your weight. These tools may help you stick with it and stay motivated. Set goals. Having specific goals can help you stay on track. Rather than be more active, set a goal to walk 15 to 30 minutes before work or at lunch on Thursday and Thursday. If you miss a walk on Thursday, pick it up again Thursday. Seek support. Ask for help or encouragement from your family, friends, or health livestock caretaker. You can get support in person, through email or texting, or by talking on the phone. You can also join a support group. Specially trained health professionals can help you change your lifestyle. 02/04/2024 Gastroesophageal reflux disease without esophagitis (ICD-10 - K21.9) Well controlled on current med regimen Continue to limit caffeine, high fat, spicy foods Limit ibuprofen/NSAIDs Continue with Pre/Probiotics 09/22/2023 Umbilical hernia without obstruction and without gangrene (ICD-10 - K42.9) general surgery for umbilical hernia 05/21/2023 Obesity (BMI 30-39.9) (ICD-10 - E66.9) Common treatments for overweight and obesity include losing weight through healthy eating, being more physically active, and making other changes to your usual habits. Weight-management programs may help some people lose weight or keep from regaining lost weight. Some people who have obesity are unable to lose enough weight to improve their health or are unable to keep from regaining weight. In such cases, a doctor may consider adding other treatments, including weight-loss medicines, weight-loss devices, or bariatric surgery. Experts recommend losing 5 to 10 percent of your body weight within the first 6 months of treatment. If you weigh 200 pounds, this means losing as little as 10 pounds. Losing 5 to 10 percent of your weight may help lower your chances of developing health problems related to overweight and obesity improve health problems related to overweight and obesity, such as high blood pressure and high cholesterol levels. Following a healthy eating plan with fewer calories is often the first step in trying to treat overweight and obesity. People who are overweight or have obesity should also start regular physical activity when they begin their healthy eating plan. Being active may help you use calories. Regular physical activity may help you stay at a healthy weight. Changing your eating and physical activity habits and lifestyle is difficult, but with a plan, effort, regular support, and patience, you may be able to lose weight and improve your health. The following tips may help you think about ways to lose weight, engage in regular physical activity, and improve health over the long-term. Be prepared for set backs they are normal. After a setback, like overeating at a family or workplace gathering, try to regroup and focus on getting back to your healthy eating plan as soon as you can. Try to eat only when you're sitting at your dining room or kitchen table. At work, avoid areas where treats may be available. Track your progress using online food or physical activity trackers, such as the Body Weight Finishing Machine Operator Automatic, that can help you keep track of the foods you eat, your physical activity, and your weight. These tools may help you stick with it and stay motivated. Set goals. Having specific goals can help you stay on track. Rather than be more active, set a goal to walk 15 to 30 minutes before work or at lunch on Thursday and Thursday. If you miss a walk on Thursday, pick it up again Thursday. Seek support. Ask for help or encouragement from your family, friends, or health livestock caretaker. You can get support in person, through email or texting, or by talking on the phone. You can also join a support group. Specially trained health professionals can help you change your lifestyle. 09/22/2023 Encounter for screening for depression (ICD-10 - Z13.31) PHQ9 Score: 10 moderate risk for major depressive disorder States that she feels most of this is situational and where her life is right now 09/22/2023 Encounter for screening for other disorder (ICD-10 - Z13.89) CAGE Questions Adapted to Include Drug Use (CAGE-AID) 1. Have you ever felt you ought to cut down on your drinking or drug use? N 2. Have people annoyed you by criticizing your drinking or drug use? N 3. Have you felt bad or guilty about your drinking or drug use? N 4. Have you ever had a drink or used drugs first thing in the morning to steady your nerves or to get rid of a hangover (eye-environmental protection geologist)? N Total Score: 0 Scoring: Item responses on the CAGE questions are scored 0 for no and 1 for yes answers, with a higher score being an indication of alcohol problems. A total score of two or greater is considered clinically significant. 09/22/2023 Mixed hyperlipidemia (ICD-10 - E78.2) Continue current statin Low fat, low cholesterol diet Exercise Check lipids, LFTs 09/22/2023 Essential (primary) hypertension (ICD-10 - I10) Continue medication as directed Low-salt diet Weight management Regular exercise Yearly microalbumin 09/22/2023 Obesity (BMI 30-39.9) (ICD-10 - E66.9) Common treatments for overweight and obesity include losing weight through healthy eating, being more physically active, and making other changes to your usual habits. Weight-management programs may help some people lose weight or keep from regaining lost weight. Some people who have obesity are unable to lose enough weight to improve their health or are unable to keep from regaining weight. In such cases, a doctor may consider adding other treatments, including weight-loss medicines, weight-loss devices, or bariatric surgery. Experts recommend losing 5 to 10 percent of your body weight within the first 6 months of treatment. If you weigh 200 pounds, this means losing as little as 10 pounds. Losing 5 to 10 percent of your weight may help lower your chances of developing health problems related to overweight and obesity improve health problems related to overweight and obesity, such as high blood pressure and high cholesterol levels. Following a healthy eating plan with fewer calories is often the first step in trying to treat overweight and obesity. People who are overweight or have obesity should also start regular physical activity when they begin their healthy eating plan. Being active may help you use calories. Regular physical activity may help you stay at a healthy weight. Changing your eating and physical activity habits and lifestyle is difficult, but with a plan, effort, regular support, and patience, you may be able to lose weight and improve your health. The following tips may help you think about ways to lose weight, engage in regular physical activity, and improve health over the long-term. Be prepared for set backs they are normal. After a setback, like overeating at a family or workplace gathering, try to regroup and focus on getting back to your healthy eating plan as soon as you can. Try to eat only when you're sitting at your dining room or kitchen table. At work, avoid areas where treats may be available. Track your progress using online food or physical activity trackers, such as the Body Weight Finishing Machine Operator Automatic, that can help you keep track of the foods you eat, your physical activity, and your weight. These tools may help you stick with it and stay motivated. Set goals. Having specific goals can help you stay on track. Rather than be more active, set a goal to walk 15 to 30 minutes before work or at lunch on Thursday and Thursday. If you miss a walk on Thursday, pick it up again Thursday. Seek support. Ask for help or encouragement from your family, friends, or health livestock caretaker. You can get support in person, through email or texting, or by talking on the phone. You can also join a support group. Specially trained health professionals can help you change your lifestyle. 09/22/2023 Localized swelling of both lower legs (ICD-10 - R22.43) Recommend compression stockings Will obtain ECHO 09/22/2023 Murmur (ICD-10 - R01.1) EKG obtained in office today. Consider referral to Cardiology after results of ECHO and Holter given significant family history of cardiac arrest 09/22/2023 Palpitations (ICD-10 - R00.2) 11/02/2023 Other Sound therapy induction today, she will be set up for remote use 12/01/2023 Other Labs printed an d mailed PLAN OF TREATMENT Pending Test Test Name Order Date Echocardiogram 09/22/2023 Ultrasound : Neck 2023 24 Holter 09/22/2023 Future Test Test Name Order Date HELICOBACTER PYLORI, UREA BREATH TEST (1 1177) 11/25/2023 LIPID PANEL, STANDARD (7600) 12/01/2023 ALBUMIN, RANDOM URINE W/CREATININE (6517 ) 12/01/2023 COMPREHENSIVE METABOLIC PANEL (86828) CBC (INCLUDES DIFF/PLT) (6399) URINALYSIS, COMPLETE W/REFLEX TO CULTURE (3020) 12/01/2023 C-REACTIVE PROTEIN (4420) 12/01/2023 HS CRP (11564) 12/01/2023 HEMOGLOBIN A1c (496) 12/01/2023 APOLIPOPROTEIN A1 (5223) 12/01/2023 APOLIPOPROTEIN B (5224) 12/01/2023 INSULIN (561) 12/01/2023 VITAMIN D,25-OH,TOTAL,IA (36776) 024 Next Appt Details Provider Name:Melany Foster, 04/20/2024 09:30:00 AM, [address] [place], [place] [address], [id number], Insurance Providers Payer Name Payer Address Payer Phone Subscriber Number Group Number Insured Name Patient Relationship to Insured Coverage Start Date Coverage End Date [address] [place] [phone] [id number] Self - patient is the insured MEDICAL (GENERAL) HISTORY Medical History History ICD Code hypercholesterolemia microscopic hematuria anxiety breast cancer depression gastroesophageal reflux disease migraines Diverticulitis Surgical History Surgery Date(Month/Year) C-sections 05/2010 & 07/2014 Cholecystectomy/Bile duct surgery 12/2000 Bilateral Mastectomy 02/2019 Hernia repair 02/2015 Lumpectomy 08/2018 Spacer removal 09/2021 Nipple removal/spacer implanted 12/2021 bilateral breast implants 03/2022 CT Scan 01/2024 Hospitalization History Reason Date(Month/Year) C-Sections
--- OUTSIDE RECORDS SUMMARY | 2024-04-08 16:08 | XMS_ITS | Patient Health Record ---
Author Organization [facility] Address [address] [place] [address] Care Team Providers Care Sprinkling System Irrigator Name Role Phone IVELISSE ELLIS Unavailable [phone] REASON FOR REFERRAL No Information Encounters Encounter Location Date Provider Diagnosis [facility] [address] [facility] [address] [place] [address] 12/30/2023 IVELISSE ELLIS PLAN OF TREATMENT No Information Insurance Providers Payer Name Payer Address Payer Phone Subscriber Number Group Number Insured Name Patient Relationship to Insured Coverage Start Date Coverage End Date [facility] [address] [place] [address] [phone] [id number] Janie Rhoades Self - patient is the insured
--- OUTSIDE RECORDS SUMMARY | 2024-04-08 16:08 | XMS_ITS ---
Author Organization [facility] Address [address] [place] [address] Care Team Providers Care Deputy Grand Jury Name Role Phone IVELISSE ELLIS Unavailable [phone] Encounters Encounter Location Date Provider Diagnosis [facility] [address] [facility] [address] [place] [address] 12/30/2023 IVELISSE ELLIS PLAN OF TREATMENT No Information Progress Notes * Janie RHOADESDOB: [birth year] (43 yo F)Acc No.[id number]:12/30/2023 Progress Notes Patient:??Janie RHOADES Provider:??IVELISSE ELLIS NP :[id number]?Age:43 Y?Sex:Fe male Date:12/30/2023 Address:[address] [place], [place] [id number] Subjective: * Chief Complaints: * ? * Medical History:?? Objective: Assessment: Plan: * Treatment: * Images: Billing Information: * Visit Code:?? * Procedure Codes:?? * Sign off status: Pending * Provider:??IVELISSE ELLIS NP Date:??12/06
--- OUTSIDE RECORDS SUMMARY | 2024-04-08 16:08 | XMS_ITS ---
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 Name Role Phone WESLEY GÓMEZ Primary Care Provider Melany Foster Unavailable [phone] ALLERGIES Allergen (clinical drug ingredient) Drug/Non Drug [...] diarrhea, vomiting Drug Allergy Active REASON FOR VISIT f/u 3w wellness MEDICATIONS Medication SIG (Take, Route, Frequency, Duration) Notes Start Date End Date Status Wegovy 2.4 MG/0.75ML 0.75 mL Subcutaneous once a week for 30 days Not-Taking Zepbound 2.5 MG/0.5ML 2.5 mg Subcutaneou s once a week for 30 days 02/04/2024 03/27/2024 Active Ondansetron 4 MG 1 tablet on the tongue and allow to dissolve Orally once every 8 hrs for 10 days 10/26/2023 Not-Taking Famotidine 40 MG 1 tablet Orally Once a day 12/01/2023 Active Escitalopram Oxalate 10 MG TAKE ONE TABL ET BY MOUTH EVERY DAY Active hydroCHLOROthiazide 12.5 MG TAKE ONE CAP PORTILLO BY MOUTH EVERY DAY Active Atorvastatin Calcium 20 MG TAKE 1 TABLET BY MOUTH ONCE DAILY IN THE EVENING. Active Probiotic Active buPROPion HCl ER (XL) 150 MG TAKE ONE TABLET BY MOUTH EVERY DAY EVERY 24 HOURS for 90 Active Super B Complex Acti ve Vitamin D3 Active Metamucil 0.36 GM as directed Orally Active TAMOXIFEN CITRATE 20MG TABS TAKE ONE TAB LET BY MOUTH EVERY DAY 10/21/2021 Active SOCIAL HISTORY Tobacco Use: Social History Observation [...] with Men only Section Notes: Lives in [facility] with & 2 children PROBLEMS Problem Type ICD Code Onset Dates Problem Status W/U Status Risk SNOMED Code Notes Problem Diverticulitis (K57.92) Active confirmed 056651288 VITAL SIGNS Height 64 in 02/26/2024 Height-cm 162.56 cm 02/26/2024 Encounters Encounter Location Date Provider Diagnosis [address] [id number] 02/26/2024 Melany Foster Mixed hyperlipidemia E78.2 ; Severe obesity (BMI >= 40) E66.01 and Diverticulitis K57.92 ASSESSMENTS Encounter Date Diagnosis Assessment Notes Treatment Notes Treatment Clinical Notes Section Notes 02/26/2024 Mixed hyperlipidemia (ICD-10 - E78.2) Continue current statin Low fat, low cholesterol diet Exercise Check lipids, LFTs 02/26/2024 Severe obesity (BMI >= 40) (ICD-10 - E66.01) Continue with supplements and lifestyle changes Peer to Peer regarding Zepbound- should be covered after clinical notes are sent to [facility]. Will resubmit at this time FU 3 weeks 02/26/2024 Diverticulitis (ICD-10 - K57.92) Stable at this time Believes she knows her trigger as she ate it the night before both of her flares Continue with GI referral in the event that she continues to have flares and need a colonoscopy PLAN OF TREATMENT Medication Medication Name Sig Start Date Stop Date Notes Zepbound 2.5 MG/0.5ML 2.5 mg Subcutaneou s once a week for 30 days 02/04/2024 03/27/2024 Famotidine 40 MG 1 tablet Orally Once a day 12/01/2023 Atorvastatin Calcium 20 MG TAKE 1 TABLET BY MOUTH ONCE DAILY IN THE EVENING. Probiotic Super B Complex Metamucil 0.36 GM as directed Orally Treatment Notes Assessment Notes Mixed hyperlipidemia Continue current statin Low fat, low cholesterol diet Exercise Check lipids, LFTs Severe obesity (BMI >= 40) Continue with supplements and lifestyle changes Peer to Peer regarding Zepbound- should be covered after clinical notes are sent to [facility]. Will resubmit at this time FU 3 weeks Diverticulitis Stable at this time Believes she knows her trigger as she ate it the night before both of her flares Continue with GI referral in the event that she continues to have flares and need a colonoscopy Next Appt Details Follow Up: 3 Weeks, Reason: Med FU Provider Name:Melany Foster, 04/20/2024 09:30:00 AM, [address] [place] [address], [phone], Progress Notes * JANIE WHITMANDOB: [birth year] (43 yo F)Acc No.[id number]:02/26/2024 Progress Note Patient:??JANIE WHITMAN Provider:??Melany Foster DNP :1980?Age:43 Y?Sex:Fe male Date:02/26/2024 Phone: Address:[address] [place] [address] [place], [id number] Pcp:WESLEY GÓMEZ Subjective: * Chief Complaints: * ?F/u 3w wellness * HPI: ?Patient Care Team:?Oncologist:??Dr. Antony @ [facility].? Dermatology- [facility]. ?Visit info:? Virtual Care Communication method: both audio and video ?Patient's location during visit: work ?Provider's location during visit: home office ?Verbal Consent Obtained: We know that your privacy is very important, and we want you to know that we take all steps to make sure your privacy is protected, including all confidentiality protections under the law. [facility]'s virtual care platforms are HIPAA compliant and meet other (federal and state) privacy and security laws. Even though your communications with [facility] are private and secure, there is always some risk with any information that is transmitted through the internet. ?Janie presents today, via Telehealth for 3w f/u wellness. ?She notes she just finished treatment for diverticulitis flare (things have been stable/controlled on that end) and is now suffering with a sinus infection. She has pressure and congestion mainly on right side. She is using Sinex and D-12 that helps temporarily. ?She also had a menstrual cycle - first one in 4 months. She has been unable to get an appt. 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 ?She has started the supplements and seems to be tolerating them well. ?She continues to feel frustrated with her weight loss. She states that she will order the food sensitivity testing to see if this can help improve her gut health. * ROS:?Reviewed. * Medical History:?? 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 Breast Ductal CA, Double Mastectomy [place] [facility] [place]/Dr. Goldstein.?? * OB History:?? Histo ry:??Total pregnancies:??3,??Full-term pregnancies:??2.??C section(s)??2.?? * Surgical History:?? s 05/2010 & 07/2014Cholecystectomy/Bile duct surgery 12/2000Bilateral Mastectomy 02/2019Hernia repair 02/2015Lumpectomy 08/2018Spacer removal 09/2021Nipple removal/spacer implanted ilateral breast implants T Scan 01/2024 * Hospitalization/Major Diagno stic Procedure:?? * Family History:??Father: dec eased 57 yrs, Heart Attack , High Cholesterol .??Mother: alive, No Health Concern .??Paternal Grandfather: 38 yrs, Heart Attack .??Paternal Grandmother: 29 yrs.??Maternal Grandfather: , Heart Attack , Diabetes .??Maternal Grandmother: , Breast CA .??Brother: alive, Colitis.?? * Social History:?Tobacco Use:??Tobacco Use/Smoking??Tobacco use:??former smoker,??How long has it been since you last smoked???> 10 years.?Sexual History:??Sexual History??Had sex in the past 12 months (vaginal, oral, or anal)???Yes,??with??Men only.?Drugs/Alcohol:??Do you smoke marijuana?: Admits - CBD. Do you drink alcohol?: Yes, Occasionally. ?Household:??Household??Marital status:??,??Number of adults in household:??2,??Number of children in household:??2.?Lives in [place], [place] with & 2 children. * Medications:??TakingMetamuci l 0.36 GM Capsule as directed Orally Probiotic Super B Complex TAMOXIFEN CITRATE 20MG TABS TAKE ONE TABLET BY MOUTH EVERY DAY Vitamin D3 hydroCHLOROthiazide 12.5 MG Capsule TAKE ONE CAPSULE BY MOUTH EVERY DAY buPROPion HCl ER (XL) 150 MG Tablet Extended Release 24 Hour TAKE ONE TABLET BY MOUTH EVERY DAY EVERY 24 HOURS Escitalopram Oxalate 10 MG Tablet TAKE ONE TABLET BY MOUTH EVERY DAY Atorvastatin Calcium 20 MG Tablet TAKE 1 TABLET BY MOUTH ONCE DAILY IN THE EVENING. Famotidine 40 MG Tablet 1 tablet Orally Once a day Taking Metamucil 0.36 GM Capsule as directed Orally Taking Probiotic Taking Super B Complex Taking TAMOXIFEN CITRATE 20MG TABS TAKE ONE TABLET BY MOUTH EVERY DAY Taking Vitamin D3 Taking hydroCHLOROthiazide 12.5 MG Capsule TAKE ONE CAPSULE BY MOUTH EVERY DAY Taking buPROPion HCl ER (XL) 150 MG Tablet Extended Release 24 Hour TAKE ONE TABLET BY MOUTH EVERY DAY EVERY 24 HOURS Taking Escitalopram Oxalate 10 MG Tablet TAKE ONE TABLET BY MOUTH EVERY DAY Taking Atorvastatin Calcium 20 MG Tablet TAKE 1 TABLET BY MOUTH ONCE DAILY IN THE EVENING. Taking Famotidine 40 MG Tablet 1 tablet Orally Once a day Not-TakingZepbound 2.5 MG/0.5ML Solution Auto-injector 2.5 mg Subcutaneous once a week , stop date 03/04/2024Ondansetron 4 MG Tablet Disintegrating 1 tablet on the tongue and allow to dissolve Orally once every 8 hrs As neededWegovy 2.4 MG/0.75ML Solution Auto-injector 0.75 mL Subcutaneous once a week Medication List reviewed and reconciled with the patientNot-Taking Zepbound 2.5 MG/0.5ML Solution Auto- injector 2.5 mg Subcutaneous once a week , stop date 03/04/2024Not-Taking Ondansetron 4 MG Tablet Disintegrating 1 tablet on the tongue and allow to dissolve Orally once every 8 hrs As neededNot-Taking Wegovy 2.4 MG/0.75ML Solution Auto-injector 0.75 mL Subcutaneous once a week Medication List reviewed and reconciled with the patient * Allergies:??Linda: hives - AllergyPaxil: , Severity Observation:Mild to moderate , - AllergyValtrex: hives - AllergyLatex: rash - Allergysurgical tape: rashAdhesive: rash - AllergyMetronidazole: diarrhea, vomiting - AllergyBiaxin: Hives - Allergy Objective: * Vitals:??Ht: 64 in, Ht-cm: 1 62.56 cm. * Examination: ?General Examination: ?General appearance: no acute distress, speaking full sentences, thoughts clear and appropriate. ? Head: normocephalic, atraumatic. ? Eyes: sclera anicteric. ? Oral cavity: with good dentition, tongue is midline. ? Lungs: non-labored breathing, no audible shortness of breath or wheezing. ? Neurologic: alert and oriented, cooperative with exam. ? Psych: with good judgement and insight, speech is clear and coherent, normal affect / mood. Assessment: * Assessment: 1.??Mixed hyperlipidemia - E 78.2 (Primary)??2.??Severe obesity (BMI >= 40) - E66.01??3.??Diverticulitis - K57.92?? Plan: * Treatment: 2.??Severe obesity (BMI >= 4 0)?? Refill Zepbound Solution Auto-injector, 2.5 MG/0.5ML, 2.5 mg, Subcutaneous, once a week, 30 days, 1, Refills 0.? Notes: Continue with supplements and lifestyle changes Peer to Peer regarding Zepbound- should be covered after clinical notes are sent to [facility]. Will resubmit at this time FU 3 weeks? 3.??Diverticulitis?? Continue Metamucil Capsule, 0.36 GM, as directed, Orally;??Continue Probiotic;??Continue Super B Complex;??Continue Famotidine Tablet, 40 MG, 1 tablet, Orally, Once a day.? Notes: Stable at this time Believes she knows her trigger as she ate it the night before both of her flares Continue with GI referral in the event that she continues to have flares and need a colonoscopy? * Procedure Codes:??[address] [facility] Established patient visit, 10-19 minutes, Modifiers: GT * Preventive Medicine:?Last CPE: 07/2021; 08/06/22; 09/22/23 Colonoscopy: No Endoscopy: 2016 for Gastroesophageal Reflux Disease Covid Vac: Yes Flu Vac: yes 01/12/2022: glucose 96; insulin 32.7; Tcol 224; trigs 143; HDL 54; LDL 141; APO B 112; Vitamin D 53.9 05/18/2022: glucose 92; insulin 32.2; Tcol 217; trigs 85; HDL 61; LDL 139; APO B 105 08/16/2022: glucose 84; insulin 50.9; Tcol 143; trigs 63; HDL 51; LDL 79; APO B 68; Vitamin D 57.2 04/04/23: glucose 84; insulin 32.5 09/17/23- insulin 17.7. * Follow Up:??3 Weeks (Reason: Med FU) * Billing Information: * Visit Code:?? * Procedure Codes:?? [address] [facility] Established patient visit, 10-19 minutes. Modifiers: GT * Sign off status: Completed true * Provider:??Melany Foster DNP Date:?? History and Physical Notes * HPI (History of Present Illness) Category Sub-Category Detail Notes Category Not es Patient Care Team [facility]cologist[facility] Examination Category Sub-Category Detail Notes Category Not es General Examination General appearance: no acute distress, speaking full sentences, thoughts clear and appropriate. Head: normocephalic, atraumatic. Eyes: sclera anicteric. Oral cavity: with good dentition, tongue is midline. Lungs: non-labored breathing, no audible shortness of breath or wheezing. Neurologic: alert and oriented, cooperative with exam. Psych: with good judgement and insight, speech is clear and coherent, normal affect / mood.
--- OUTSIDE RECORDS SUMMARY | 2024-04-08 16:08 | XMS_ITS | Continuity of Care Document ---
Author Organization [facility] ter Address [address] [place] [address]- Care Team Providers Care Project Intern Name Role Phone Cristian CONCEPCION, Melany Longo Primary Care Physician Encounter [facility] Date(s): 03/31/24 - 03/31/[address] [address] Discharge Disposition: A-D/C Home Attending Physician: Yamileth Aguiar MD Admitting Physician: Yamileth Aguiar MD Referring Physician: Yamileth Aguiar MD Encounter Type: Disch Daystay Allergies, Adverse Reactions, Alerts Substance Criticality Severity Reaction Reaction Severity Status Paxil eye dilation CNC effects Active Adhesive Bandage eats my ski n paper tape severe reaction per pt Active valACYclovir hives whole body Active Linda whole body rash Acti ve Latex swelling Active Immunizations Given and Recorded Vaccine Date Status [...] 1Admin Note: [facility] 2Result Comment: [id number] 3Admin Note: Declined 4Admin Note: declined 5Admin [...] Maintenance, 05/02/23 8:00:00 PM EST, DIS Tablet, [facility], Partial fill upon patient request [...] Refills, Maintenance, 03/31/24 10:55:00 AM EST, Tablet, [facility], Partial fill upon patient request [...] Confirmed 1998 Active Severe obesity Confirmed Active Vital Signs Most recent to oldest [Reference Range]: 1 2 3 Weight 116.1 kg (03/31/24 9:30 AM) Oxygen Saturation [94-100 %] 99 % (03/31/24 11:30 AM) 99 % (03/31/24 11:15 AM) 99 % (03/31/24 11:01 AM) Pulse Rate [55-90 bpm] 76 bpm (03/31/24 9:30 AM) Blood Pressure [90-138/55-84 mm Hg] 134/75mm Hg (03/31/24 11:30 AM) 123/75mm Hg (03/31/24 11:15 AM) 122/65mm Hg (03/31/24 11:01 AM) Respiratory Rate [16-30 br/min] 14 br/min *L* (03/31/24 11:30 AM) 14 br/min *L* (03/31/24 11:15 AM) 13 br/min *L* (03/31/24 11:01 AM) Temperature [96.8-100.4 DegF] 98.2 DegF (03/31/24 11:30 AM) 98.3 DegF (03/31/24 11:00 AM) 98.3 DegF (03/31/24 9:30 AM) Liters per Minute 6 L/min (03/31/24 11:00 AM) Mode of Delivery (Oxygen) Room air (03/31/24 11:30 AM) Room air (03/31/24 11:15 AM) Simple face mask (03/31/24 11:00 AM) Blood pressure sites Arm, left (03/31/24 9:30 AM) Temperature Route Temporal (03/31/24 11:30 AM) Temporal (03/31/24 11:00 AM) Temporal (03/31/24 9:30 AM) Dry Weight 116.1 kg (03/31/24 9:30 AM) Weight Obtained Via Standing scale (03/31/24 9:30 AM) Dry Weight Obtained Via Standing scale (03/31/24 9:30 AM) Social History Social History Type Response Smoking Status Former smoker entered on: 07/31/14 Sex Sex Representation Female (finding) Implantable Device List Procedure Provider Procedure Date Device Type Site Reconstruction Breast with Insertion Rito Maier MD 12/23/21 Unknown Breast Left Device Identifier Serial Number Lot or Batch Number Manufacturing Date Expiration Date Distinct Identification Code MRI Safety Implantable Status Assigning Authority Unknown [id number] Unknown Unknown 11/04/25 Unknown Unknown Active Unknown Procedure Provider Procedure Date Device Type Site Reconstruction Breast with Insertion Rito Maier MD 02/23/19 Unknown Breast Right Device Identifier Serial Number Lot or Batch Number Manufacturing Date Expiration Date Distinct Identification Code MRI Safety Implantable Status Assigning Authority Unknown [id number] Unknown 08/04/23 Unknown Unknown Active Unknown Procedure Provider Procedure Date Device Type Site Reconstruction Breast with Insertion Tis Jennifer RAGSDALE, Rito Mcghee 02/23/19 Unknown Breast Left Device Identifier Serial Number Lot or Batch Number Manufacturing Date Expiration Date Distinct Identification Code MRI Safety Implantable Status Assigning Authority Unknown [id number] Unknown 07/05/23 Unknown Unknown Active Unknown History and physical note * Event Display: History and Physical Hospital Authored Date: [id number] Note * Kerrie Frederick RN: PERFORM Event Display: Discharge/Transfer Note Hospital Authored Date: [id number] Nursing Discharge Note Entered On: 03/31/2024 11:42 EST Performed On: 03/31/2024 11:41 EST by Kerrie Frederick RN Nursing Discharge Note 2 Discharge Time : 03/31/2024 11:40 EST Discharge Level of Care at Discharge : Home/[facility] Care Patient Left Unit Via : Wheelchair Patient Accompanied Off Unit with : Responsible adult DC Instructions Provided & Signed by Pt : Yes Patient Understands D/C Instructions : Yes Patient Instructions Discharge Signed : Yes Did Pt have Specialty Bed or Wound Vac : No Kerrie Frederick RN - 03/31/2024 11:41 EST * Kerrie Frederick RN: PERFORM Event Display: Patient Education/Instruction Authored Date: [id number] Surgery Adult Discharge Instructions [place] [id number] Name: JANIE WHITMAN : 1980?? Visit: 03/31/2024 09:03?? Current Date: 03/31/2024 11:09 ?? Account: [id number]?? Surgery Discharge Instructions We would like to thank you for allowing us to assist you with your healthcare needs. The following includes patient education materials and information regarding your injury/illness. Our entire staffstrives to provide an excellent experience for our patients and their families. PLEASE ENSURE YOU FOLLOW-UP PER THE INSTRUCTIONS BELOW! ?? YOUR OPINION IS IMPORTANT TO US! Please complete the survey you may receive by mail or email. Your feedback will be used to make improvements to the healthcare experiences of our patients and their families. Surveys are administered by [employer] ?? If further treatment with your primary care physician or another doctor is recommended, it is important for you to keep the appointment. Call your primary care physician or return to the Emergency Department immediately if your condition worsens, fails to improve, or new symptoms develop. If you need to find a doctor, you can call [facility] Link for a referral at [phone] or toll free at [phone] ([phone]) or log in to [email or web address].. ?? [facility], in keeping with [facility] guidance, no longer requires face masks for staff, patientsor visitors in most situations. Similiar to time spent indoors at other locations, there is the chance that you were exposed to repiratory viruses during your time with us (such as flu or COVID-19). If you develop symptoms concerning for a viral respiratory infection, please seek testing (and treatment if indicated) from your medical provider or home test kit. ?? You can view and manage your care through the patient portal or by using a health care holden of your choosing. [employer] is a website that allows you to securely view your medical information including your hospital discharge summary, office visit summaries, medications and follow-up visits. You can also request appointments, renew medications, and request access to your medical information using a health care holden of your choosing, or just ask a question. You are entitled to know the individuals who participated in your treatment. This information is available within your medical record and will be provided upon your request. You can enroll at [email or web address] or register d uring your next office visit. You have been discharged from [facility], Patient Care Unit: [facility]??. If you have any questions regarding these instructions after you leave, please call us and we will be happy to assist you. [facility] Your Care Team Attending Physician Yamileth Aguiar MD?? Discharging Providers Corinna Herrera MD Reason for Admission THICKENED ENDOMETRIUM, AUB CS DS Primary Care Provider Melany Foster NP? Advance Directive Health Care Proxy on File Yes - Health Care Proxy What to do next Instructions From Your Doctor ?? Orders? 03/31/24 10:55:00 EST?? Scheduled Follow-Up Appointments 2024 11:30 AM EST ?? With: Vika CONCEPCION, Annalise Brasher Where: [facility] PUBLIC RELATIONS Oncology [address] [facility] 4th [place] [address] [place] [address]- Status: Pending You Need to Schedule the Following Appointments Follow Up with??Yamileth Aguiar Where: [address] [facility] [place] [address]- Business (1) Follow Up with??Melany Foster When:??In 0 days Discharge Medications JANIE WHITMAN :1980 Visit Date:03/31/2024 Medications: Please continue your medications until treatment is completed or stopped by your provider. You may resume your daily prescription medications. Discuss any questions related to medications with your provider. What How Much When Instructions Next Dose New Acetaminophen (Tylenol Extra Strength 500 mg oral tablet) 1 tab(s) Oral Every 4 hours as needed for as needed for fever Pickup at [facility] New Ibuprofen (ibuprofen 600 mg oral tablet) 1 tab(s) Oral 4 times a day Pickup at [facility] Unchanged Atorvastatin (atorvastatin 20 mg oral tablet) 1 tab(s) Oral Daily Unchanged BuPROpion (buPROPion 150 mg/ 24 hours (XL) oral tablet, extended release) 1 tab(s) Oral Every 24 hours Unchanged Cephalexin (cephalexin monohydrate 500 mg oral capsule) 1 capsule Oral 4 times a day Duration: 7 Days Unchanged Cholecalciferol (cholecalciferol 2000 intl units oral capsule) 1 capsule Oral Daily Unchanged Escitalopram (escitalopram 10 mg oral tablet) 1 tab(s) Oral Daily Unchanged Famotidine (Pepcid 20 mg oral tablet) 1 tab(s) Oral Daily Unchanged Hydrochlorothiazide (hydroCHLOROthiazide 12.5 mg oral capsule) 1 capsule Oral Daily Unchanged Miscellaneous Rx (vitamin c) See instructions Unchanged Multivitamin (Multi Vitamin+) Unchanged Ondansetron (ondansetron 4 mg oral tablet, disintegrating) 1 tab(s) Oral Every 8 hours as needed for as needed for nausea/vomiting Unchanged Oxycodone / Acetaminophen (acetaminophen-oxyCODONE 325 mg-5 mg oral tablet) 1 tab(s) Oral Every 6 hours as needed for Pain , Severe Unchanged semaglutide (Wegovy (1.7 mg dose) subcutaneous solution) 1.7 Milligram Subcutaneous Injection Every week Duration: 4 week(s) in the abdomen, thigh, or upper arm ?? Unchanged Tamoxifen (tamoxifen 20 mg oral tablet) See instructions TAKE ONE TABLET BY MOUTH EVERY DAY ?? Unchanged Tamsulosin (Flomax 0.4 mg oral capsule) 1 capsule Oral Daily Duration: 7 Days Unchanged tirzepatide (Zepbound 2.5 mg/ 0.5 mL subcutaneous solution) 2.5 Milligram Subcutaneous Infusion Pharmacy Information [facility]: [address] [place], [place] [id number] [phone] Allergies (NKA means No Known Allergies) Adhesive Bandage??(eats my skin, paper tape, severe reaction per pt) Linda??(whole body rash) Latex??(swelling) Paxil??(eye dilation, CNC effects) valACYclovir??(hives whole body) Education Materials Below is the list of Educational Leaflet Providered with your Discharge Instructions. [employer] Ignite Patient Education - Surgery Medical Daystay Surgical Overnight Discharge Instructions?? Valuables and Belongings I fully understand and agree that [facility] accepts no responsibility for all my personal property including clothing, toilet articles, radios, jewelry, dentures, hearing aids, rings, money, or any other property that is in my possession or is brought to me after admission. I understand certain valuables may be placed in a hospital safe for a short period of time. I understand that the hospital is not liable for loss or damage due to accident, fire, or other natural occurrence while said property is in the safe. I accept full responsibility for any personal property that I keep with me, and will not hold the hospital responsible in case of loss or disappearance. I acknowledge that i have been encouraged to send valuables and belongings home. ?? Review of Valuable and Belonging List: With patient Date for Pt to Sign Valuables/Belongings: 03/31/24 09:30:00 ?? Valuables & Belongings ?? Clothes Electronic devices Jewelry Monetary Items Personal devices Miscellaneous Medications (Valuables) Valuables at Bedside Jacket, Pants, Shirt, Shoes, Undergarments Cell phone ?? Other: insurance cards, lisence. ?? Other: yellow cup ?? Valuables Sent Home ? Valuables Sent to Security ? Valuables Sent to Locker ? Other Discharge Information ? Pulmonary Rehab Status?? Pulmonary Rehab Discharge Status?? Respiratory Rate:??13 br/min??Low ? Common Emergency Awareness Tips IS IT A STROKE? Act FAST and Check for these signs: FACE Does the face look uneven? ARM Does one arm drift down? SPEECH Does their speech sound strange? TIME Call at any sign of stroke ?? Heart Attack Signs Chest discomfort: Most heart attacks involve discomfort in the center of the chest and lasts more than a few minutes, or goes away and comes back. It can feel like uncomfortable pressure, squeezing, fullness or pain. Discomfort in upper body: Symptoms can include pain or discomfort in one or both arms, back, neck, jaw or stomach. Shortness of breath: With or without discomfort. Other signs: Breaking out in a cold sweat, nausea, or lightheaded. Remember, MINUTES DO MATTER. If you experience any of these heart attack warning signs, call to get immediate medical attention! ?? Smoking can increase your chances of developing chronic health problems and can cause harmful effects to other family members in your house. If you smoke, you are strongly encouraged to quit. Please call [facility] [employer] Link at [phone] or [phone] World ([phone]) or log in to [email or web address] for referrals to smoking cessation programs. ?? The National Suicide Prevention Hotline is available 27/10 if you or someone you know needs to find a reason to keep living. By calling 2-016-477-AppCard (5999) you'll be connected to a skilled, trained counselor at a crisis center in your area. SURGERY DISCHARGE INSTRUCTIONS SIGNATURE PAGE JANIE WHITMAN Location:[facility] Registration Date and Time:03/31/2024 09:03 EST Primary Care Physician: Melany Foster NP, Attending Physician: Yamileth Aguiar MD, I LARAMEE, JANIE, have received the above patient education materials/instructions and have verbalized understanding. If ambulance or transport services are being used I further acknowledge being given a choice of service. ?? If you need to contact me, please call me at this number: . Patient/Tire Center Manager Name: Janie Whitman Patient/Tire Center Manager Signature: Relationship to Patient:self Witness Name/Signature: Date:03/31/24 * Kerrie Frederick RN: PERFORM, SIGN, VERIFY Event Display: Patient Education Handout Authored Date: [id number] * Kerrie Frederick RN: PERFORM Event Display: Patient Education Leaflets Authored Date: [id number] Surgery Medical Daystay Surgical Overnight Discharge Instructions ?? 295 Medical Daystay/Surgical Overnight Discharge Instructions ? Since your coordination and judgment may be altered by medication and/or anesthesia, a responsible adult must drive you home from the hospital. ? If you have received medication for pain or sedation while under our care, you should not drive, operate machinery, drink alcohol, or sign any legal documents for 24 hours.?? You should have someone with you at home tonight. ? Remain at home the day of discharge.?? You may be up and about unless otherwise instructed by your physician. ? You may resume your daily prescription medication schedule.?? Any depressant medication should be avoided for 24 hours unless otherwise instructed by your surgeon or anesthesiologist. ? Call your physician for a follow-up appointment.? If you experience unusual or severe pain not relied by your pain medication, excessive bleedingor drainage, persistent nausea and vomiting, excessive swelling or redness, foul odor from incisionsite or fever over 100.6F, you need to call your physician. ? A follow-up phone call by a nurse will be made the day after your procedure.?? If you have stayed with us over night, you will not be receiving a follow-up phone call. ? Nausea and vomiting are a common side effect of prescription pain medication.?? We recommend that pills are not taken on an empty stomach.?? While taking any prescription pain medication you should not drive or drink alcohol. ? Patient Care team information Care Team Personnel Name: Anuradha Melton Position: [facility] Onco RN Member Role: Primary Care Nurse Name: Rakel Lenz RN Position: S RN Member Role: Primary Care Nurse Name: Shira Bond RN Position: S RN Member Role: Primary Care Nurse Name: Jailene Mendieta RN Position: S RN Member Role: Primary Care Nurse Name: Melany Foster NP Position: [facility] Associate Professional Member Role: PCP Address: [address] [facility] [place] [address]- [place] Telecom: Name: Suyapa Fabian MD Position: [facility] Physician - Oncology Member Role: [employer] Physician Address: [address] [place] [address] [place] [address]- Telecom: Name: Yesenia Parish RN Position: [facility] RN Member Role: Primary Care Nurse Name: Annalise Mosquera RN Position: [facility] RN Member Role: Primary Care Nurse Care Team Related Persons Name: NAGI DOS SANTOS Name: ELIZABETH WHITMAN Insurance Providers Guarantor name: [facility] Information #: 1 Payer: [facility] FF NON B[employer] HMO Member Number: [id number] Policy Number: NA Group Number: [id number] Health Plan Information #: 2 Payer: [facility] FF NON BHP HMO Member Number: [id number] Policy Number: NA Group Number: NA
--- OUTSIDE RECORDS SUMMARY | 2024-04-08 16:08 | XMS_ITS ---
Author Organization [facility] [employer] Address [address] [place] [phone] Care Team Providers Care Construction Skills Teacher Name Role Phone WESLEY GÓMEZ Primary Care Provider Melany Foster Unavailable [phone] ALLERGIES Allergen (clinical drug ingredient) Drug/Non Drug [...] vomiting Drug Allergy Active REASON FOR VISIT FU Zepbound MEDICATIONS Medication SIG (Take, Route, Frequency, Duration) Notes Start Date End Date Status TAMOXIFEN CITRATE 20MG TABS TAKE ONE TAB LET BY MOUTH EVERY DAY 10/21/2021 Active Vitamin D3 Active Benzonatate 200 MG 1 capsule as needed Orally two times a day for 7 days 03/18/2024 Active Zepbound 5 MG/0.5ML 5 mg/ 0.5 mL Subcutaneous once a week for 30 days 03/18/2024 04/17/2024 Active Ondansetron 4 MG 1 tablet on the tongue and allow to dissolve Orally once every 8 hrs for 10 days 10/26/2023 Not-Taking Wegovy 2.4 MG/0.75ML 0.75 mL Subcutaneous once a week for 30 days Not-Taking Famotidine 40 MG 1 tablet Orally Once a day 12/01/2023 Active Albuterol Sulfate HFA 108 (90 Base) MCG/ACT 2 puff as needed Inhalation every 4 hrs for 30 days 03/18/2024 Active Atorvastatin Calcium 20 MG TAKE 1 TABLET BY MOUTH ONCE DAILY IN THE EVENING. Active Escitalopram Oxalate 10 MG TAKE ONE TABL ET BY MOUTH EVERY DAY Active Metamucil 0.36 GM as directed Orally Active buPROPion HCl ER (XL) 150 MG TAKE ONE TABLET BY MOUTH EVERY DAY EVERY 24 HOURS for 90 Active Probiotic Active Super B Complex Acti ve hydroCHLOROthiazide 12.5 MG TAKE ONE CAP PORTILLO BY MOUTH EVERY DAY Active SOCIAL HISTORY Tobacco Use: Social History [...] with Men only Section Notes: Lives in [facility] with & 2 children VITAL SIGNS Height 64 in 03/18/2024 Height-cm 162.56 cm 03/18/2024 Encounters Encounter Location Date Provider Diagnosis [address] [phone] 03/18/2024 Melany Cristian Acute cough R05.1 and Obesity (BMI 30-39.9) E66.9 ASSESSMENTS Encounter Date Diagnosis Assessment Notes Treatment Notes Treatment Clinical Notes Section Notes 03/18/2024 Acute cough (ICD-10 - R05.1) Increase water intake Cool mist humidifier Antihistamine to help with post nasal drip Flonase Albuterol PRN Please call the office if symptoms do not improve 03/18/2024 Obesity (BMI 30-39.9) (ICD-10 - E66.9) Discussed weight and it affect on health status Discussed dietary choices/nutrit ionist referral Intermittent fasting Increase exercise as tolerated Increase Zepbound to 5mg weekly FU 4 weeks PLAN OF TREATMENT Medication Medication Name Sig Start Date Stop Date Notes Benzonatate 200 MG 1 capsule as needed Orally two times a day for 7 days 03/18/2024 Zepbound 2.5 MG/0.5ML 2.5 mg Subcutaneou s once a week 02/04/2024 03/27/2024 Zepbound 5 MG/0.5ML 5 mg/ 0.5 mL Subcuta neous once a week for 30 days 03/18/2024 04/17/2024 Albuterol Sulfate HFA 108 (90 Base) MCG/ACT 2 puff as needed Inhalation every 4 hrs for 30 days 03/18/2024 Treatment Notes Assessment Notes Acute cough Increase water intake Cool mist humidifier Antihistamine to help with post nasal drip Flonase Albuterol PRN Please call the office if symptoms do not improve Obesity (BMI 30-39.9) Discussed weight and it affect on health status Discussed dietary choices/head lineman referral Intermittent fasting Increase exercise as tolerated Increase Zepbound to 5mg weekly FU 4 weeks Next Appt Details Follow Up: 4 Weeks, Reason: FU Provider Name:Melany Foster, 04/20/2024 09:30:00 AM, [address] [place] [address] [place], [phone], Progress Notes * BLANCOGlaenJANIEDOB: [birth year] (43 yo F)Acc No.[id number]:03/18/2024 Progress Note Patient:??JANIE HWITMAN Provider:??Melany Foster DNP :1980?Age:43 Y?Sex:Fe male Date:03/18/2024 Phone: Address:[address] [place] [address] [place] Pcp:WESLEY GÓMEZ Subjective: * Chief Complaints: * ?FU Zepbound * HPI: ?Patient Care Team:?Oncologist:??Dr. Antony @ [facility].? Dermatology- [facility]. ?Visit info:? Virtual Care Communication method: both audio and video ?Patient's location during visit: office ?Provider's location during visit: office ?Verbal Consent Obtained: We know that your privacy is very important, and we want you to know that we take all steps to make sure your privacy is protected, including all confidentiality protections under the law. [facility]'s virtual care platforms are HIPAA compliant and meet other (federal and state) privacy and security laws. Even though your communications with [facility] are private and secure, there is always some risk with any information that is transmitted through the internet. ?Janie presents by video this morning for a telehealth follow up to starting Zepbound 2.5mg. She is tolerating the Zepbound just fine- she states that she had a slight increase in heartburn. ?Bowel are doing well- she still continues to have some sensitvity to lettuce and high fiber foods. ?Janie had an appointment with the SCHEDULING MANAGER/Onc- she has an ultrasound scheduled for Thursday and then will FU with in the beginning of the New Year. She states that the provider stated that the follow-up will possible be a pre-op for a D&C. ?Janie is still congested and states that she is wheezing at night when she lays down and she is struggling with significant post nasal drip. She has a congested cough. * ROS:?Reviewed. * Medical History:?? 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 Breast Ductal CA, Double Mastectomy @ [facility] w/Dr. Goldstein.?? * OB History:?? Histo ry:??Total pregnancies:??3,??Full-term pregnancies:??2.??C section(s)??2.?? * Surgical History:?? s 05/2010 & 07/2014Cholecystectomy/Bile duct surgery 12/2000Bilateral Mastectomy 02/2019Hernia repair 02/2015Lumpectomy 08/2018Spacer removal 09/2021Nipple removal/spacer implanted ilateral breast implants T Scan 01/2024 * Hospitalization/Major Diagno stic Procedure:??C-Sections * Family History:??Father: dec eased 57 yrs, [...] in household:??2,??Number of children in household:??2.?Lives in [place], [place] with & 2 children. * Medications:??TakingTAMOXIFE N CITRATE 20MG TABS TAKE ONE TABLET BY MOUTH EVERY DAY Vitamin D3 hydroCHLOROthiazide 12.5 MG Capsule TAKE ONE CAPSULE BY MOUTH EVERY DAY buPROPion HCl ER (XL) 150 MG Tablet Extended Release 24 Hour TAKE ONE TABLET BY MOUTH EVERY DAY EVERY 24 HOURS Escitalopram Oxalate 10 MG Tablet TAKE ONE TABLET BY MOUTH EVERY DAY Metamucil 0.36 GM Capsule as directed Orally Probiotic Super B Complex Atorvastatin Calcium 20 MG Tablet TAKE 1 TABLET BY MOUTH ONCE DAILY IN THE EVENING. Famotidine 40 MG Tablet 1 tablet Orally Once a day Zepbound 2.5 MG/0.5ML Solution Auto-injector 2.5 mg Subcutaneous once a week , stop date 03/27/2024Taking TAMOXIFEN CITRATE 20MG TABS TAKE ONE TABLET BY MOUTH EVERY DAY Taking Vitamin D3 Taking hydroCHLOROthiazide 12.5 MG Capsule TAKE ONE CAPSULE BY MOUTH EVERY DAY Taking buPROPion HCl ER (XL) 150 MG Tablet Extended Release 24 Hour TAKE ONE TABLET BY MOUTH EVERY DAY EVERY 24 HOURS Taking Escitalopram Oxalate 10 MG Tablet TAKE ONE TABLET BY MOUTH EVERY DAY Taking Metamucil 0.36 GM Capsule as directed Orally Taking Probiotic Taking Super B Complex Taking Atorvastatin Calcium 20 MG Tablet TAKE 1 TABLET BY MOUTH ONCE DAILY IN THE EVENING. Taking Famotidine 40 MG Tablet 1 tablet Orally Once a day Taking Zepbound 2.5 MG/0.5ML Solution Auto-injector 2.5 mg Subcutaneous once a week , stop date 03/27/2024Not-TakingOndansetron 4 MG Tablet Disintegrating 1 tablet on the tongue and allow to dissolve Orally once every 8 hrs As neededWegovy 2.4 MG/0.75ML Solution Auto-injector 0.75 mL Subcutaneous once a week Medication List reviewed and reconciled with the patientNot-Taking Ondansetron 4 MG Tablet Disintegrating 1 tablet [...] - AllergyBiaxin: Hives - Allergy Objective: * Vitals:??BP: Not Taken - Tel ehealth, Ht: 64 in, Ht-cm: 162.56 cm. * Examination: ?General Examination: ?General appearance: [...] normal affect / mood. Assessment: * Assessment: 1.??Acute cough - R05.1 (Yahaira skip)??2.??Obesity (BMI 30-39.9) - E66.9?? Plan: * Treatment: 2.??Obesity (BMI 30-39.9)?? Stop Zepbound Solution Auto-injector, 2.5 MG/0.5ML, 2.5 mg, Subcutaneous, once a week;??Start Zepbound Solution Auto-injector, 5 MG/0.5ML, 5 mg/ 0.5 mL, Subcutaneous, once a week, 30 days, 2 ML, Refills 0.? Notes: Discussed weight and it affect on health status Discussed dietary choices/head lineman referral Intermittent fasting Increase exercise as tolerated Increase Zepbound to 5mg weekly FU 4 weeks? * Procedure Codes:??37253 Tele health Established patient visit, 20-29 minutes, Modifiers: GT * Preventive Medicine:?Last CPE: [...] insulin 32.5 09/17/23- insulin 17.7. * Follow Up:??4 Weeks (Reason: FU) * Billing Information: * Visit Code:?? * Procedure Codes:?? 07427 Telehealth Established patient visit, 20-29 minutes. Modifiers: GT * Sign off status: Completed true * Provider:??Melany Foster DNP Date:?? History and Physical Notes * HPI (History of Present Illness) Category Sub-Category Detail Notes Category Not es Patient Care Team Oncologist: [facility] Antony @ [facility] Visit info Virtual Care Communication method: both audio and video Patient's location during visit: office Provider's location during visit: office Verbal Consent Obtained: We know that your privacy is very important, and we want you to know that we take all steps to make sure your privacy is protected, including all confidentiality protections under the law. [facility]'s virtual care platforms are HIPAA compliant and meet other (federal and state) privacy and security laws. Even though your communications with [facility] are private and secure, there is always some risk with any information that is transmitted through the internet. Janie presents by video this morning for a telehealth follow up to starting Zepbound 2.5mg. She is tolerating the Zepbound just fine- she states that she had a slight increase in heartburn. Bowel are doing well- she still continues to have some sensitvity to lettuce and high fiber foods. Janie had an appointment with the SCHEDULING MANAGER/Onc- she has an ultrasound scheduled for Thursday and then will FU with in the beginning of the New Year. She states that the provider stated that the follow-up will possible be a pre-op for a D&C. Janie is still congested and states that she is wheezing at night when she lays down and she is struggling with significant post nasal drip. She has a congested cough Examination Category Sub-Category Detail Notes Category Not [...]
== END 2024-04-08 15:41 | disposition home or self-care (01) ==
PROVIDERS: PCP Registered Nurse; Visit Provider Nurse Practitioner Family
DX: R14.0 Abdominal distension (gaseous) (principal); K21.9 Gastro-esophageal reflux disease without esophagitis; K59.01 Slow transit constipation; K52.9 Noninfective gastroenteritis and colitis, unspecified; Z87.19 Personal history of other diseases of the digestive system; Z86.19 Personal history of other infectious and parasitic diseases
CPT/HCPCS: 99204

== ENCOUNTER → 2024-04-08 14:50 | Outpatient (BNVA) | payer OTHER, SELFPAY | PROVIDERS: PCP Registered Nurse; Visit Provider Nurse Practitioner Family ==

== ENCOUNTER 2024-04-15 16:23 | Outpatient (REF) | payer OTHER, SELFPAY ==
[2024-04-16 08:44] LABS: H Pylori Breath Test Negative (Negative)
== END 2024-04-15 16:24 | disposition home or self-care (01) ==
LOC: HO.LNP 16:23
PROVIDERS: PCP Registered Nurse; Visit Provider Nurse Practitioner Family
DX: K21.9 Gastro-esophageal reflux disease without esophagitis (principal)
CPT/HCPCS: 83013

== ENCOUNTER 2024-09-12 11:01 | Day surgery (SDC) | payer OTHER, SELFPAY ==
--- OUTSIDE RECORDS SUMMARY | 2024-04-11 13:22 | XMS_ITS ---
Author Organization [facility] [employer] [facility] Address [address] [place] [phone] Care Team Providers Care Work Study Student Name Role Phone WESLEY GÓMEZ Primary Care Provider [phone] Melany Foster Unavailable [phone] ALLERGIES Allergen (clinical drug ingredient) Drug/Non Drug [...] with Men only Section Notes: Lives in [facility] with & 2 children PROBLEMS Problem Type ICD Code Onset Dates Problem Status W/U Status Risk SNOMED Code Notes Problem Diverticulitis (K57.92) Active confirmed 150511734 VITAL SIGNS Height 64 in 02/26/2024 Height-cm 162.56 cm 02/26/2024 Encounters Encounter Location Date Provider Diagnosis [address] [phone] 02/26/2024 Melany Foster Mixed hyperlipidemia E78.2 ; [...] covered after clinical notes are sent to [facility]. Will resubmit at this time [...] covered after clinical notes are sent to [facility]. Will resubmit at this time [...] FU Provider Name:Melany Foster, 04/20/2024 09:30:00 AM, [address] [place] [address], [id number], Progress Notes * JANIE WHITMANDOB: [birth year] (43 yo F)Acc No.[id number]:02/26/2024 Progress Note Patient:??JANIE WHITMAN Provider:??Melany Foster DNP :1980?Age:43 Y?Sex:Fe male Date:02/26/2024 Phone: Address:[address] [place] [address] [place], [place] Pcp:WESLEY GÓMEZ Subjective: * Chief Complaints: * ?F/u 3w wellness * HPI: ?Patient Care Team:?Oncologist:??Dr. Antony @ [facility].? Dermatology- [facility]. ?Visit info:? Virtual Care Communication method: both audio and video ?Patient's location during visit: work ?Provider's location during visit: home office ?Verbal Consent Obtained: We know that your privacy is very important, and we want you to know that we take all steps to make sure your privacy is protected, including all confidentiality protections under the law. [facility]'s virtual care platforms are HIPAA compliant and meet other (federal and state) privacy and security laws. Even though your communications with [facility] are private and secure, there is always some risk with any information that is transmitted through the internet. ?Janei presents today, via Telehealth for 3w f/u [...] been unable to get an appt. w/recommended CORPORATE HUMAN RESOURCES MANAGER - will reach out again today (because of endometrial thickening seen on imaging). ?She has started the supplements and seems to be tolerating them well. ?She continues to feel frustrated with her weight loss. She states that she will order the food sensitivity testing to see if this can help improve her gut health. * ROS:?Reviewed. * Medical History:?? * Intervention Teacher History:??Menstrual hist ory:??LMP:??02/21/2024,?Age of Menarche:??11.??Last pap smear date??07/2021 - Negative per pt..??Last mammogram date??2019 - Rt. Breast Ductal CA, Double Mastectomy @ [facility] w/Dr. Goldstein.?? * OB History:?? Histo ry:??Total [...] in household:??2,??Number of children in household:??2.?Lives in [place], [place] with & 2 children. * Medications:??TakingMetamuci [...] covered after clinical notes are sent to [facility]. Will resubmit at this time [...] flares and need a colonoscopy? * Procedure Codes:??59409 Tele [facility] Established patient visit, 10-19 minutes, Modifiers: GT [...] Information: * Visit Code:?? * Procedure Codes:?? 18[facility] patient visit, 10-19 minutes. Modifiers: GT * Sign off status: Completed true * Provider:??Melany Foster DNP Date:?? History and Physical Notes * HPI (History of Present Illness) Category Sub-Category Detail Notes Category Not es Patient Care Team Oncologist: [facility] Examination Category Sub-Category Detail Notes [...]
--- OUTSIDE RECORDS SUMMARY | 2024-04-11 13:22 | XMS_ITS ---
Author Organization [facility] Address [address] [place] [address] Care Team Providers Care Blockman Name Role Phone IVELISSE ELLIS Unavailable [phone] Encounters Encounter Location Date Provider Diagnosis [facility] [address] [facility] [address] [place] [address] 12/30/2023 IVELISSE ELLIS PLAN OF TREATMENT No Information Progress Notes * Janie RHOADESDOB: [birth year] (44 yo F)Acc No.[id number]:12/30/2023 Progress Notes Patient:??Janie RHOADES Provider:??IVELISSE ELLIS NP :1980?Age:43 Y?Sex:Fe male Date:12/30/2023 Address:[address] [place], [place] [phone] Subjective: * Chief Complaints: * ? * Medical History:?? Objective: Assessment: Plan: * Treatment: * Images: Billing Information: * Visit Code:?? * Procedure Codes:?? * Sign off status: Pending * Provider:??IVELISSE ELLIS NP Date:??12/06
--- OUTSIDE RECORDS SUMMARY | 2024-04-11 13:22 | XMS_ITS ---
Author Organization [facility] Address [address] [place], [place] [phone] Care Team Providers Care Radio Presenter Name Role Phone WESLEY GÓMEZ Primary Care Provider Melany Foster Unavailable [phone] REASON FOR VISIT Rectal bleed - Hemorrhoid? Encounters Encounter Location Date Provider Diagnosis [facility] [address] [place], [place] [phone] 02/17/2024 Melany Foster PLAN OF TREATMENT Next Appt Details Provider Name:Melany Foster, 04/20/2024 09:30:00 AM, [address] [place], [place], [phone], Progress Notes * BALBINA WHITMANDOB: [birth year] (43 yo F)Acc No.[id number]:02/17/2024 Patient:??BALBINA WHITMAN :1980?Age:43 Y?Sex:Fe male Phone: Address:[address] [place] [address] * true * Date:??
--- OUTSIDE RECORDS SUMMARY | 2024-04-11 13:22 | XMS_ITS ---
Author Organization [facility] [employer] [facility] Address [address] [place] [phone] Care Team Providers Care It Consulting Director Name Role Phone WESLEY GÓMEZ Primary Care Provider Melany Foster Unavailable [phone] ALLERGIES Allergen (clinical drug ingredient) Drug/Non Drug [...] ve hydroCHLOROthiazide 12.5 MG TAKE ONE CAP PORITLLO BY MOUTH EVERY DAY Active SOCIAL HISTORY [...] with Men only Section Notes: Lives in [facility] with & 2 children VITAL SIGNS Height 64 in 03/18/2024 Height-cm 162.56 cm 03/18/2024 Encounters Encounter Location Date Provider Diagnosis [address] [phone] 03/18/2024 Melany Cristian Acute cough R05.1 and [...] it affect on health status Discussed dietary choices/caddy referral Intermittent fasting Increase exercise as tolerated Increase Zepbound to 5mg weekly FU 4 weeks Next Appt Details Follow Up: 4 Weeks, Reason: FU Provider Name:Melany Foster, 04/20/2024 09:30:00 AM, [address] [place] [address] [place], [phone], Progress Notes * BLANCOGalenJANIEDOB: [birth year] (43 yo F)Acc No.[id number]:03/18/2024 Progress Note Patient:??JANIE WHITMAN Provider:??Melany Foster DNP :1980?Age:43 Y?Sex:Fe male Date:03/18/2024 Phone: Address:[address] [place] [address] [place], [place] Pcp:WESLEY GÓMEZ Subjective: * Chief Complaints: * ?FU Zepbound * HPI: ?Patient Care Team:?Oncologist:??Dr. Antony @ [facility].? Dermatology- [facility]. ?Visit info:? Virtual Care Communication method: both audio and video ?Patient's location during visit: office ?Provider's location during visit: office ?Verbal Consent Obtained: We know that your privacy is very important, and we want you to know that we take all steps to make sure your privacy is protected, including all confidentiality protections under the law. [facility]'s virtual care platforms are HIPAA compliant and meet other (federal and state) privacy and security laws. Even though your communications with [facility] are private and secure, there is always [...] foods. ?Janie had an appointment with the [facility] ABATEMENT WORKER/Onc- she has an ultrasound scheduled for Thursday [...] cough. * ROS:?Reviewed. * Medical History:?? 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 * Medications:??TakingTAMOXIFE [...] it affect on health status Discussed dietary choices/caddy referral Intermittent fasting Increase exercise as tolerated Increase Zepbound to 5mg weekly FU 4 weeks? * Procedure Codes:??27746 Tele health Established patient visit, 20-29 minutes, [...] Information: * Visit Code:?? * Procedure Codes:?? 10859 Telehealth Established patient visit, 20-29 minutes. Modifiers: GT * Sign off status: Completed true * Provider:??Melany Foster DNP Date:?? History and Physical Notes * HPI (History of Present Illness) Category Sub-Category Detail Notes Category Not es Patient Care Team Oncologist: [facility] @ [facility] Visit info Virtual Care Communication method: both audio and video Patient's location during visit: office Provider's location during visit: office Verbal Consent Obtained: We know that your privacy is very important, and we want you to know that we take all steps to make sure your privacy is protected, including all confidentiality protections under the law. [facility]'s virtual care platforms are HIPAA compliant and meet other (federal and state) privacy and security laws. Even though your communications with [facility] are private and secure, there is always [...] foods. Janie had an appointment with the [facility] ABATEMENT WORKER/Onc- she has an ultrasound scheduled for Thursday [...]
--- OUTSIDE RECORDS SUMMARY | 2024-04-11 13:22 | XMS_ITS | Patient Health Record ---
Author Organization [facility] Address [address] [place] [id number] Care Team Providers Care Surgical Technology Instructor Name Role Phone WESLEY GÓMEZ Primary Care Provider Melany Foster Unavailable [phone] BEREKET CLOUD Unavailable [phone] ALLERGIES Allergen (clinical drug ingredient) Drug/Non Drug [...] Drug Allergy Active REASON FOR REFERRAL Reason 24 Holter Monitor AN D ECHO please for palpitations and new murmur Diagnosis 1 Palpitations (R00.2) Diagnosis 2 History of breast ca ncer in female (Z85.3) Diagnosis 3 Murmur (R01.1) [facility] Referring Provider First Name Melany Referring Provider Last Name Cristian Referring Provider Speciality Nurse Prac titioner Referred Organization [facility] Referred Address [address], [place],[id number], Referred Provider Specialty Cardiology General Notes LYNNETTE PAIZ 0 09/24/2023 09:32:39 AM >PVC form completed- waiting to be scanned into chart, LYNNETTE PAIZ 09/24/2023 03:21:45 PM >order form, EKG, demographics, insurance info, order and office note faxed to [facility] [phone] Referral Priority Routine Reason Dr. Grover for evaluat ion and treatment of umbilical hernia Diagnosis 1 Umbilical hernia wit hout obstruction and without gangrene (K42.9) Referral Organization [facility] Referring Provider First Name Melany Referring Provider Last Name Cristian Referring Provider Speciality Nurse Marvel montague Referred Organization [facility] Referred Address [address], [place],[id number] Referred Provider Specialty General Surg anup General Notes ROMELIA PAIZAIL 0 09/23/2023 09:50:56 AM >demographics, insurance info, referral and office note faxed to [facility] for Dr. Grover [phone] Referral Priority Routine Reason Please refer to [facility] [employer] [facility] to help with choices given food sensitivities and obesity Diagnosis 1 Obesity (BMI 30-39.9 ) (E66.9) Diagnosis 2 Bloating (R14.0) Diagnosis 3 Prediabetes (R73.03) Diagnosis 4 Gastroesophageal ref lux disease without esophagitis (K21.9) Referral Organization [facility] Referring Provider First Name Melany Referring Provider Last Name Cristian Referring Provider Speciality Nurse Marvel montague Referred Organization [facility] Referred Address [address] [place] [id number],[place] Referred Provider Specialty Nutrition General Notes LYNNETTE PAIZ 0 09/23/2023 09:58:15 AM >demographics, insurance info, referral and office note faxed to [employer] [phone] Referral Priority Routine Reason Thickened endometriu m on CT (from [facility] ER), and amenorrhea, with significant family history of CA, and her history of Breast CA. please refer for evaluation Diagnosis 1 Thickened endometriu m (R93.89) Referral Organization [facility] Referring Provider First Name Melany Referring Provider Last Name Cristian Referring Provider Speciality Nurse Marvel montague Referred Organization [facility] Referred Address [address], [place],[id number] Referred Provider Specialty Gynecologic Oncology General Notes LYNNETTE PAIZ 1 04/26/2023 02:11:47 PM >[facility] Specialty appt request form, demographics, insurance info, referral, office note and CT faxed to [facility] [phone] Referral Priority Routine Reason Please refer to Luis Felipe CONRAD. She has a new diagnosis of diverticulitis. Post treatment her symptoms resume. She continues with rectal bleeding and abdominal pain. Please refer for possible colonoscopy, evaluation and treatment Diagnosis 1 Acute diverticulitis (K57.92) [facility] Referring Provider First Name Melany Referring Provider Last Name Cristian Referring Provider Speciality Nurse Marvel montague [facility] Referred Address [address] [place] [address],[place], [place],[id number],[place] Referred Provider Specialty Gastroentero logy General Notes IZABEL LYNNETTE 1 04/18/2023 02:25:35 PM >demographics, insurance info, referral, on-call message, most recent office note, ER note and CT scan obtained in ER have been faxed to [facility] [phone] Referral Priority Stat MEDICATIONS Medication SIG (Take, [...] with Men only Section Notes: Lives in [place], M A Lives in [place], M A Lives in [place], M A with & 2 children Lives in [place], M A with & 2 children Lives in [place], M A with & 2 children Lives in [place], M A with & 2 children Lives [place] M A with & 2 children Lives [place] M A with & 2 children Lives [place], M A with & 2 children Lives in [place], M A with & 2 children Lives in [place], M A with & 2 children Lives in [place], M A with & 2 children Lives in [place], M A with & 2 children Lives in [place], M A Lives in [place], M A with & 2 children Lives in [place], M A with & 2 children Lives in [place], M A with & 2 children Lives in [place], M A with & 2 children PROBLEMS Problem Type ICD Code Onset Dates Problem Status W/U Status Risk SNOMED Code Notes Problem Polycystic ovarian syndrome (E28.2) Active confirmed 364383574 Problem Mixed hyperlipidemia (E78.2) Active confirmed 339447061 Problem Essential (primary) hypertension (I10) Active confirmed 08465121 Problem Diverticulitis (K57.92) Active confirmed 005479665 Problem Gastroesophageal reflux disease without esophagitis (K21.9) Active confirmed 387688691 Problem Obesity (BMI 30-39.9) (E66.9) Active confirmed 897731965 Problem Thyroid nodule (E04.1) Active confirmed 503092036 Problem History of breast cancer in female (Z85.3) Active confirmed 238158245 Problem Severe obesity (BMI >= 40) (E66.01) Active confirmed 135554141 VITAL SIGNS Heart Rate 83 /min 02/04/2024 Temperature 98.7 degrees Fahrenheit 02/04/2024 Oximetry 98 % 02/04/2024 Blood pressure diastolic 80 mm Hg 02/04/2024 Height-cm 162.56 cm 03/18/2024 Weight-kg 115.21 kg 02/04/2024 Height 64 in 03/18/2024 Blood pressure systolic 124 mm Hg 02/04/2024 Weight 254.0 lbs 02/04/2024 BMI 43.59 kg/m2 02/04/2024 Encounters Encounter Location Date Provider Diagnosis [address] [id number] 05/21/2023 WESLEY GÓMEZ [address] [id number] 09/17/2023 Melany Foster [address] [id number] 09/23/2023 Melany Foster [address] [id number] 12/30/2023 Melany Foster [address] [id number] 05/21/2023 Melany Foster Mixed hyperlipidemia E78.2 ; Essential (primary) hypertension I10 ; Gastroesophageal reflux disease without esophagitis K21.9 ; Polycystic ovarian syndrome E28.2 and Obesity (BMI 30-39.9) E66.[address] [id number] 09/22/2023 Melany Foster Bloating R14.0 ; Encounter [...] R22.43 ; Murmur R01.1 and Palpitations R00.[address] [id number] 10/23/2023 Melany Foster Positive H. pylori t est A04.[address] [id number] 11/02/2023 WESLEY GÓMEZ Gastroesophageal ref lux disease without esophagitis K21.9 and H. pylori infection A04.[address] [id number] 11/18/2023 Melany Foster Helicobacter pylori (H. pylori) A04.[address] [id number] 12/01/2023 Melany Foster Gastroesophageal ref lux disease without esophagitis K21.9 ; Mixed hyperlipidemia E78.2 ; Essential (primary) hypertension I10 and Severe obesity (BMI >= 40) E66.[address] [id number] 02/04/2024 Melany Foster Severe obesity (BMI >= 40) E66.01 ; Thickened endometrium R93.89 ; Mixed hyperlipidemia E78.2 and Gastroesophageal reflux disease without esophagitis K21.[address] [id number] 02/26/2024 Melany Foster Mixed hyperlipidemia E78.2 ; Severe obesity (BMI >= 40) E66.01 and Diverticulitis K57.[address] [id number] 03/18/2024 Melany Foster Acute cough R05.1 an d Obesity (BMI 30-39.9) E66.[address] [id number] 10/26/[address] [id number] 11/02/[address] [id number] 11/19/[address] [id number] 11/27/2023 BEREKET CLOUD [address] [id number] 12/01/[address] [id number] 02/12/[address] [id number] 02/12/[address] [id number] 02/13/2024 Melany Cristian Acute diverticulitis K57.[address] RADHA SANTACRUZ [id number] 02/17/2024 Melany Foster ASSESSMENTS Encounter Date Diagnosis Assessment Notes Treatment Notes Treatment Clinical Notes Section Notes 09/22/2023 Encounter for general adult medical examination [...] Labs reviewed EKG- Sinus Rhythm Rate- 70 MT Int 194 QRS dur 104 QT/QTc 324/344 09/22/2023 Bloating (ICD-10 - R14.0) 10/23/2023 Positive H. pylori test (ICD-10 - A04.8) [facility] MAP tests reviewed H.Pylori was positive- will treat. Unable to tolerate Omeprazole- causes lower extremity edema- will continue on Pepcid AC that she takes at this time. FU 4 weeks post treatment Other results are indicative of senior care PPI use. Will start pro/pre biotic after h. pylori treatment Will go and get food sensitivity testing done within the next couple of weeks 02/26/2024 Mixed hyperlipidemia (ICD-10 - E78.2) Continue current statin Low fat, low cholesterol diet Exercise Check lipids, LFTs 02/26/2024 Severe obesity (BMI >= 40) (ICD-10 - E66.01) Continue with supplements and lifestyle changes Peer to Peer regarding Zepbound- should be covered after clinical notes are sent to [facility]. Will resubmit at this time FU 3 weeks 12/01/2023 Mixed hyperlipidemia (ICD-10 - E78.2) Continue current statin Low fat, low cholesterol diet Exercise Check lipids, LFTs 12/01/2023 Gastroesophageal reflux disease without esophagitis (ICD-10 - K21.9) Increase Famotidine to 40mg to help with acid reflux Continue Psyllium Husk and Probiotic 03/18/2024 Acute cough (ICD-10 - R05.1) Increase [...] Zepbound to 5mg weekly FU 4 weeks 02/13/2024 Acute diverticulitis (ICD-10 - K57.92) 02/04/2024 Severe obesity (BMI >= 40) (ICD-10 [...] activity trackers, such as the Body Weight Clinical Project Assistant, that can help you keep track of [...] encouragement from your family, friends, or health reservoir caretaker. You can get support in person, through email or texting, or by talking on the phone. You can also join a support group. Specially trained health professionals can help you change your lifestyle. Has tried months (6-8 months) of diet and lifestyle changes with no success. She has tried intermittent fasting, she has see a radiation oncology therapist Will order Zepbound As well as an extended food allergy sensitivity panel, Scripts through [facility], and [facility]. FU 2-3 weeks 02/04/2024 Thickened endometrium (ICD-10 - R93.89) Seen on CT scan when she was in ER Given breast CA and family history of CA will refer to Idalia Braga for further work-up 11/18/2023 Helicobacter pylori (H. pylori) (ICD-10 - [...] stools and GI symtpoms FU 2 weeks 05/21/2023 Mixed hyperlipidemia (ICD-10 - E78.2) Continue current statin Low fat, low cholesterol diet Exercise Check lipids, LFTs 05/21/2023 Essential (primary) hypertension (ICD-10 - I10) Continue medication as directed Low-salt diet Weight management Regular exercise Yearly microalbumin 11/02/2023 Gastroesophageal reflux disease without esophagitis (ICD-10 - K21.9) 11/02/2023 H. pylori infection (ICD-10 - A04.8) We will hold off starting this new regimen for 1 more week, she will resume treatment once her ALONZO symptoms joycelyn. She should continue metamucil and probiotics in the interim-she is agreeable to this plan 05/21/2023 Gastroesophageal reflux disease without esophagitis (ICD-10 - K21.9) Well controlled on current med regimen Continue to limit caffeine, high fat, spicy foods Limit ibuprofen/NSAIDs 02/04/2024 Mixed hyperlipidemia (ICD-10 - E78.2) Continue current statin Low fat, low cholesterol diet Exercise Check lipids, LFTs 12/01/2023 Essential (primary) hypertension (ICD-10 - I10) [...] increased incidence of hypertension compared with nondrinkers. 02/26/2024 Diverticulitis (ICD-10 - K57.92) Stable at this time Believes she knows her trigger as she ate it the night before both of her flares Continue with GI referral in the event that she continues to have flares and need a colonoscopy 09/22/2023 Gastroesophageal reflux disease without esophagitis (ICD-10 - K21.9) [facility] Allergy blood test for sensitvities Recommended psyllium husk to see if this helps with heartburn Will also refer to general surgery for possible hernia repair 09/22/2023 Other fatigue (ICD-10 - R53.83) Will change medication and see if this helps with symptoms and sexual health 12/01/2023 Severe obesity (BMI >= 40) (ICD-10 [...] activity trackers, such as the Body Weight Clinical Project Assistant, that can help you keep track of [...] encouragement from your family, friends, or health reservoir caretaker. You can get support in person, through email or texting, or by talking on the phone. You can also join a support group. Specially trained health professionals can help you change your lifestyle. 02/04/2024 Gastroesophageal reflux disease without esophagitis (ICD-10 - K21.9) Well controlled on current med regimen Continue to limit caffeine, high fat, spicy foods Limit ibuprofen/NSAIDs Continue with Pre/Probiotics 05/21/2023 Polycystic ovarian syndrome (ICD-10 - E28.2) [...] maintaining healthy endometrium, and reestablishing hormonal balance 05/21/2023 Obesity (BMI 30-39.9) (ICD-10 - E66.9) [...] activity trackers, such as the Body Weight Clinical Project Assistant, that can help you keep track of [...] encouragement from your family, friends, or health reservoir caretaker. You can get support in person, through email or texting, or by talking on the phone. You can also join a support group. Specially trained health professionals can help you change your lifestyle. 09/22/2023 Umbilical hernia without obstruction and without gangrene (ICD-10 - K42.9) general surgery for umbilical hernia 09/22/2023 Encounter for screening for depression (ICD-10 [...] or to get rid of a hangover (eye-railcar switcher)? N Total Score: 0 Scoring: Item responses [...] activity trackers, such as the Body Weight Clinical Project Assistant, that can help you keep track of [...] encouragement from your family, friends, or health reservoir caretaker. You can get support in person, [...] Date HELICOBACTER PYLORI, UREA BREATH TEST (1 8554) 11/25/2023 LIPID PANEL, STANDARD (7600) 12/01/2023 ALBUMIN, RANDOM URINE W/CREATININE (6517 ) 12/01/2023 COMPREHENSIVE METABOLIC PANEL (71478) CBC (INCLUDES DIFF/PLT) (6399) URINALYSIS, COMPLETE W/REFLEX TO CULTURE (3020) 12/01/2023 C-REACTIVE PROTEIN (4420) 12/01/2023 HS CRP (63051) 12/01/2023 HEMOGLOBIN A1c (496) 12/01/2023 APOLIPOPROTEIN A1 (5223) 12/01/2023 APOLIPOPROTEIN B (5224) 12/01/2023 INSULIN (561) 12/01/2023 VITAMIN D,25-OH,TOTAL,IA (01471) 024 Next Appt Details Provider Name:Melany Cristian, 04/20/2024 09:30:00 AM, [address] [place] [address], [phone], Insurance Providers Payer Name Payer Address Payer Phone Subscriber Number Group Number Insured Name Patient Relationship to Insured Coverage Start Date Coverage End Date [address] [place] [phone] [id number] JANIE WHITMAN Self - patient is the insured MEDICAL [...]
--- OUTSIDE RECORDS SUMMARY | 2024-04-11 13:22 | XMS_ITS | Patient Health Record ---
Author Organization [facility] Address [address] [place] [address] Care Team Providers Care Human Factors Advisor Lead Name Role Phone IVELISSE ELLIS Unavailable [phone] REASON FOR REFERRAL No Information Encounters Encounter Location Date Provider Diagnosis [facility] [address] [facility] [address] [place] [address] 12/30/2023 IVELISSE ELLIS PLAN OF TREATMENT No Information Insurance Providers Payer Name Payer Address Payer Phone Subscriber Number Group Number Insured Name Patient Relationship to Insured Coverage Start Date Coverage End Date [facility] [address] [place] [address] [id number] Janie Rhoades Self - patient is the insured
--- OUTSIDE RECORDS SUMMARY | 2024-04-11 13:22 | XMS_ITS | Continuity of Care Document ---
Author Organization [facility] Address [address] [place] [address]- Care Team Providers Care Scorer Helper Name Role Phone Cristian INTEGRATION ARCHITECT, Melany Longo Primary Care Physician Encounter [facility] ACCT R [id number] Date(s): 03/11/24 - 04/10/[address] [facility] [address] [place] [address] Attending Physician: Dago Edouard Admitting Physician: Dago Edouard Referring Physician: Dago Edouard Encounter Type: Triage Allergies, Adverse Reactions, Alerts Substance Criticality Severity Reaction Reaction Severity Status Paxil eye dilation CNC effects Active Linda whole body rash Acti ve Latex swelling Active valACYclovir hives whole body Active Adhesive Bandage eats my ski n paper tape severe reaction per pt Active Immunizations Given and Recorded Vaccine Date [...] 1Admin Note: [employer] 2Result Comment: [id number] 3Admin Note: Declined 4Admin Note: declined 5Admin [...] Maintenance, 05/02/23 8:00:00 PM EST, DIS Tablet, [id number], Partial fill upon patient request [...] 03/31/24 10:55:00 AM EST, Tablet, [facility], Partial fill upon patient request [...] MRI Safety Implantable Status Assigning Authority Unknown [id number] Unknown Unknown 11/04/25 Unknown Unknown Active Unknown Procedure Provider Procedure Date Device Type Site Reconstruction Breast with Insertion Rito Maier MD 02/23/19 Unknown Breast Right Device Identifier Serial Number Lot or Batch Number Manufacturing Date Expiration Date Distinct Identification Code MRI Safety Implantable Status Assigning Authority Unknown [id number] Unknown 08/04/23 Unknown Unknown Active Unknown Procedure Provider Procedure Date Device Type Site Reconstruction Breast with Insertion Tis Rito Rodriguez MD 02/23/19 Unknown Breast Left Device Identifier Serial Number Lot or Batch Number Manufacturing Date Expiration Date Distinct Identification Code MRI Safety Implantable Status Assigning Authority Unknown [id number] Unknown 07/05/23 Unknown Unknown Active Unknown Patient Care team information Care Team Personnel Name: Anuradha Melton Position: [facility] Onco RN Member Role: Primary Care Nurse Name: Rakel Lenz RN Position: [facility] RN Member Role: Primary Care Nurse Name: Shira Bond RN Position: [facility] RN Member Role: Primary Care Nurse Name: Jailene Mendieta RN Position: [facility] RN Member Role: Primary Care Nurse Name: Melany Foster NP Position: [facility] Associate Professional Member Role: PCP Address: [address] [place] [address] [place] [address]- Telecom: Name: Suyapa Fabian MD Position: [facility] Physician - Oncology Member Role: Lifetime Consulting Physician Address: [address] [place] [address] [place] [address]- Telecom: Name: Yesenia Parish RN Position: [facility] RN Member Role: Primary Care Nurse Name: Annalise Mosquera RN Position: [facility] RN Member Role: Primary Care Nurse Care Team Related Persons Name: NAGI DOS SANTOS Name: ELIZABETH WHITMAN Insurance Providers Guarantor name: [place] [facility] 1929[facility]1984[facility] Information #: 1 Payer: [facility] FF NON BHP HMO Member Number: NA Policy Number: NA Group Number: NA
[2024-09-08 11:41] VITALS: BMI 43.3
--- NOTE | 2024-09-09 12:48 | HO.ANESPROP2 ---
HPI - Anesthesia Eval Consult details Narrative: 44yo F for Upper Endoscopy and Colonoscopy s/p bilat mastectomy Anesthesia Pre-Procedure Meds Is the patient on any of the following meds?: GLP1/DPP4 PMFSH Active Problems Active Problems: All Active Problems History of Helicobacter pylori infection (Acute) Past Medical History Medical History (Updated 09/12/24 @ 11:25 by Trini Moody RN) Pericardial cyst, congenital History of Holter monitoring Heart murmur Breast prosthesis or implant fitting/adjustment History of Helicobacter pylori infection Breast implant status delivery delivered Diverticulitis Migraine GERD (gastroesophageal reflux disease) Breast cancer Anxiety Hypercholesteremia Family History Family History Maternal Grandmother Breast CA Brother Colitis Surgical History Surgical History (Updated 09/12/24 @ 11:42 by Trini Moody RN) History of removal of Port-a-Cath H/O endoscopy History of surgery H/O tubal ligation H/O: hysterectomy H/O lumpectomy H/O hernia repair History of mastectomy, total Hx of cholecystectomy (~2000) Social History Social History Alcohol intake: current Comment: Occasional Patient Tobacco Use Status: Former Tobacco user Meds Allergies Allergy/AdvReac Type Severity Reaction Status Date / Time fexofenadine (From Linda) Allergy Severe Hives Verified 09/12/24 11:17 latex Allergy Severe Unknown Verified 09/12/24 11:17 paroxetine (From Paxil) Allergy Severe Unknown Verified 09/12/24 11:17 valacyclovir Allergy Severe Nausea and Verified 09/12/24 11:17 Vomiting adhesive Allergy Mild Rash Verified 04/08/24 14:57 Home Medications ?Medication ?Instructions ?Recorded ?Confirmed ?Last Taken ?Type atorvastatin 20 mg tablet 20 mg PO BEDTIME 04/08/24 Unknown History bupropion HCl 150 mg 24 hr tablet, 150 mg PO QAM 04/08/24 09/12/24 History extended release cholecalciferol (vitamin D3) 25 25 mcg PO DAILY 04/08/24 Unknown History mcg (1,000 unit) capsule escitalopram oxalate 10 mg tablet 10 mg PO DAILY 04/08/24 09/12/24 History famotidine 40 mg tablet 40 mg PO BEDTIME 04/08/24 09/12/24 History hydrochlorothiazide 12.5 mg capsule 12.5 mg PO DAILY 04/08/24 Unknown History ondansetron 4 mg disintegrating 4 mg PO Q8H 04/08/24 Unknown History tablet psyllium husk 0.4 gram capsule 0.4 g PO BEDTIME 04/08/24 Unknown History (Metamucil) tamoxifen 20 mg tablet 20 mg PO DAILY 04/08/24 09/12/24 History tirzepatide (weight loss) 5 mg/0.5 5 mg subcut QWEEK 04/08/24 09/02/24 History mL subcutaneous pen injector (Zepbound) vitamin B complex 1 cap PO DAILY 04/08/24 Unknown History Exam Height,Weight and Vital Signs: Height 5 ft 4 in Weight 114.305 kg Assessment and Plan Assessment Anesthesia Assessment: Chart Reviewed
--- NOTE | 2024-09-12 10:51 | MHC.SHP ---
Pre-Procedural Eval Section A - 24 Hr Update-Section A only Date of Service: 09/12/24 The patient is an INPATIENT: No The patient has been examined within 24 hours of the surgical procedure. The History & Physical has been completed within 30 days and I have reviewed it.: No Section B - Complete if H&P > 30 days Chief Complaint: Screenin, hx of diverticulitis, GERD Relevant Family History (Specify if Yes): No Relevant Social History: Tobacco Use (Former smoker) Present Medications: see Short Stay Collaborative assessment Medical History: Significant History (History of Helicobacter pylori infection Breast implant status delivery delivered Diverticulitis Migraine GERD (gastroesophageal reflux disease) Breast cancer Anxiety Hypercholesteremia) History of Previous Operations: Relevant previous surgery/procedure and date(s) (H/O lumpectomy H/O hernia repair History of mastectomy, total Hx of cholecystectomy (~2000)) Allergies: Allergies Allergy/AdvReac Type Severity Reaction Status Date / Time adhesive Allergy Mild Rash Verified 04/08/24 14:57 fexofenadine [From Linda] Allergy Unknown Unknown Verified 04/08/24 14:57 latex Allergy Unknown Unknown Verified 04/08/24 14:57 paroxetine [From Paxil] Allergy Unknown Unknown Verified 04/08/24 14:57 valacyclovir Allergy Unknown Unknown Verified 04/08/24 14:57 Review of Systems Sugical H&P ROS: Negative: Constitution, Cardiovascular, Respiratory and Gastrointestinal Exam Surgical H&P Exam: Normal: Heart, Normal: Lungs, Normal: Extremities and Normal: Abdomen Plan Diagnosis/Plan: Unchanged I have reviewed the history and physical and performed a pertinent physical examination on my patient. No changes have occurred unless specified. Time Spent With Patient Time: Total time managing care of this patient today ____ minutes.
[2024-09-12 11:08] VITALS: BMI 38.9
[2024-09-12 11:39] VITALS: BP 120/68; PULSE 65; RESP 16; TEMP 35.8; O2SAT 98
--- NOTE | 2024-09-12 12:46 | HO.OPN-COLON ---
Colonoscopy Operative Note Operative Note Date of Service: 09/12/24 Narrative: FLEXIBLE TRANSORAL UPPER GASTROINTESTINAL ENDOSCOPY WITH BIOPSIES AND COLONOSCOPY TILL CECUM WITH BIOPSIES Pre-op diagnosis: Colon cancer screening, history of diverticulitis, GERD Post-op diagnosis: GERD, Gastritis, Diverticulosis, hemorrhoids Endoscopist:Tommy Russell MD Anesthesia:?MAC UPPER ENDOSCOPY Consent: Indications for the procedure and potential complications of bleeding, perforation, reaction to medications and missed diagnosis were discussed with the patient and informed consent was obtained. Instrument: Olympus GIF H 190 mid size upper endoscope Monitoring: Vital signs and clinical assessment, continuous EKG monitoring, Pulse oximetry, Carbon Dioxide monitoring and blood pressure monitoring were done throughout the procedure. Procedure: The patient was placed in the left lateral decubitis position and pre-procedure medications were administered and a bite block was placed. The endoscope was inserted into the mouth and advanced under direct vision to the third part of duodenum. A careful inspection was made as the upper endoscope was withdrawn including a retroflexed examination of the proximal stomach; Findings and interventions are described below. Findings: Larynx: Normal Esophagus: GE junction at 35 cms. Mild focal esophagitis at GE junction and no Green's. Stomach: Mild antral erythema - biopsies were obtained from the antrum to check for H Pylori. Grade 2 flap valve on retroflexed examination of the cardia. Duodenum: Normal bulb and descending duodenum Biopsies were obtained from descending duodenum to check for celiac sprue Intervention: Biopsies as noted above COLONOSCOPY PROCEDURE NOTE Instrument: Olympus PCF H 190 L variable stiffness pediatric colonoscope Monitoring: Vital signs and clinical assessment, intermittent blood pressure monitoring, continuous EKG monitoring, Pulse oximetry and Carbon Dioxide monitoring were done throughout the procedure. Please see anesthesia flowsheet. Colon withdrawl time was 18 minutes. Procedure: The patient was placed in the left lateral decubitis position and pre-procedure medications were administered. After a digital rectal examination of the ano-rectum, the video colonoscope was inserted into the rectum and advanced through the colon to the cecum. The colonoscope was slowly withdrawn in a retrograde panoramic fashion and the colon mucosa was carefully examined including a retroflexed view of the rectum. Findings and interventions are described below. Procedure Difficulty: without difficulty Findings: Terminal Ileum: Not evaluated Cecum: Normal Ascending Colon: Normal Transverse Colon: Moderate diverticulosis Descending Colon: Moderate diverticulosis Sigmoid Colon: Moderate diverticulosis Rectum: Normal Ano-rectum: Moderate internal hemorrhoids Colon preparation: Excellent after some irrigation. [place] Bowel Preparation Scale Right colon; 3 Transverse colon: 3 Left colon; 3 (0 = Unprepared colon segment with mucosa not seen due to solid stool that cannot be cleared. 1 = Portion of mucosa of the colon segment seen, but other areas of the colon segment not well seen due to staining, residual stool and/or opaque liquid. 2 = Minor amount of residual staining, small fragments of stool and/or opaque liquid, but mucosa of colon segment seen well. 3 = Entire mucosa of colon segment seen well with no residual staining, small fragments of stool or opaque liquid) Impression and Post Procedure Diagnosis: Endoscopy Findings: ESOPHAGUS: Mild focal esophagitis at GE junction and no Green's. STOMACH: Mild antral gastritis DUODENUM: Normal Colonoscopy Findings: No polyps were detected Random biopsies were obtained from right and left colon to check for microscopic colitis Moderate diverticulosis seen in the left and transverse colon Moderate hemorrhoids on retroflexed exam. Plan: Pt to schedule a FU appt in the GI clinic with Rosemary Arthur NP Repeat Colonoscopy in 10 years if colon biopsies are normal. A summary of above findings and relevant handouts were given to the patient. BIOPSIES SHOWED: A. Small bowel, biopsy: Duodenal mucosa within normal limits. B. Stomach, antrum, biopsy: Antral-type mucosa with mild chronic inactive inflammation; no Helicobacter organisms seen. C. Colon, right, biopsy: Colonic mucosa within normal limits. D. Colon, left, biopsy: Colonic mucosa within normal limits. Letter sent to the patient with biopsy results. Patient was placed on the colonoscopy recall list for repeat colonoscopy in 10 years.
[2024-09-12 13:23] VITALS: BP 108/61; PULSE 68; RESP 16; TEMP 36.6; O2SAT 99
[2024-09-12 13:38] VITALS: BP 117/64; PULSE 67; RESP 16; TEMP 36.6; O2SAT 99
== END 2024-09-12 13:54 | disposition home or self-care (01) ==
PROVIDERS: PCP Registered Nurse; Visit Provider Internal Medicine Gastroenterology
PROC: (CPT 45380; principal; 2024-09-12 12:00)
DX: Z12.11 Encounter for screening for malignant neoplasm of colon (principal); Z87.19 Personal history of other diseases of the digestive system; K57.30 Diverticulosis of large intestine without perforation or abscess without bleeding; K64.8 Other hemorrhoids; K59.01 Slow transit constipation; R14.0 Abdominal distension (gaseous); K21.9 Gastro-esophageal reflux disease without esophagitis; K20.80 Other esophagitis without bleeding; K29.50 Unspecified chronic gastritis without bleeding; K52.9 Noninfective gastroenteritis and colitis, unspecified; Z86.19 Personal history of other infectious and parasitic diseases; E78.00 Pure hypercholesterolemia, unspecified; G43.909 Migraine, unspecified, not intractable, without status migrainosus; F41.9 Anxiety disorder, unspecified; Z85.3 Personal history of malignant neoplasm of breast; Z98.82 Breast implant status; Z79.85 Long-term (current) use of injectable non-insulin antidiabetic drugs; Z79.899 Other long term (current) drug therapy; L23.1 Allergic contact dermatitis due to adhesives; Z88.8 Allergy status to other drugs, medicaments and biological substances; Z91.040 Latex allergy status; Z87.891 Personal history of nicotine dependence; Z98.890 Other specified postprocedural states
CPT/HCPCS: 45380; 43239; 88305; 88313; 88342; J1100; J2003; J2250; J2704

== ENCOUNTER → 2024-09-12 11:01 | Outpatient (BNV) | payer OTHER, SELFPAY | PROVIDERS: PCP Registered Nurse; Visit Provider Internal Medicine Gastroenterology | DX: Z12.11 Encounter for screening for malignant neoplasm of colon (principal); K57.90 Diverticulosis of intestine, part unspecified, without perforation or abscess without bleeding; K64.8 Other hemorrhoids; K21.00 Gastro-esophageal reflux disease with esophagitis, without bleeding; K29.70 Gastritis, unspecified, without bleeding | CPT/HCPCS: 43239; 45380 ==

== ENCOUNTER 2024-11-04 10:03 | Outpatient (AMB) | payer OTHER, SELFPAY ==
--- NOTE | 2024-11-04 10:09 | A.OFFVIS_ITS ---
Vital Signs 11/04/24 10:18 Height 5 ft 4 in Weight 222 lb BMI 38.1 BP 126/78 Blood Pressure Location Rt brachial Position Sitting Pulse 70 Pulse Source Pulse Oximeter Pulse Oximetry (%) 99 Oxygen Delivery Method Room Air Intake Visit Reasons: EGD result Intake Note: Est pt for mgmt of GERD + CIC. S/P EGD. CC: C.O. multiple IBS episodes over the last 2 mos. Pt states she had one episode from 09/19 to 09/22 and took some abx which she had Rx'd from a previous episode which helped. Pt also had another episode 10/24 which she did not treat. 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 Accompanied by: Self / Same As Patient Allergies fexofenadine (From Ilnda) Allergy (Severe, Verified 11/04/24 10:09) Hives latex Allergy (Severe, Verified 11/04/24 10:09) Unknown paroxetine (From Paxil) Allergy (Severe, Verified 11/04/24 10:09) Unknown valacyclovir Allergy (Severe, Verified 11/04/24 10:09) Nausea and Vomiting adhesive Allergy (Mild, Verified 11/04/24 10:09) Rash HPI HPI EGD result: Details: LAST VISIT: Postprandial abdominal bloating GERD (gastroesophageal reflux disease) Constipation Postprandial diarrhea History of diverticulitis of colon History of Helicobacter pylori infection Plan Diagnosed with diverticulitis in February. Patient reports that her mom also has history of diverticulitis as well as her brother. Patient will need to move her bowels better, okay to take at this time fiber with pre/probiotics. She was encouraged to increase fluid intake and activity to promote better bowel motility. Patient can take MiraLax if she will have abdominal pain to help her empty her bowels better. Colonoscopy is scheduled for patient for the end of this month. Patient had tested positive for H pylori in the past we will send her for upper endoscopy, however patient should have H pylori breath test prior to going for procedure. Patient had no issues with anesthesia in the past. No history of sleep apnea. Not on any anticoagulation medication. Patient denies any cardiac or respiratory symptoms. Just recently underwent sedation for endometrial biopsy. Patient will follow-up in the office after the procedure. Patient will call our office if she will have any GI concerning symptoms. She is agreeable to current plan of care and verbalizes understanding of instructions. She was given the opportunity to ask questions and all questions answered. ? Thank you for allowing me to participate in her care Orders H Pylori Breath Test Today K21.9 New bisacodyl (Dulcolax (bisacodyl)) take 4 tabs at noon the day before your colonoscopy 20 mg (4 x 5 mg) PO ONCE 1 day 4 tabs 0RF Z12.11 polyethylene glycol 3350 (Miralax) As directed by gastroenterology department at [facility] 238 grams PO ONCE 238 grams 0RF Z12.11 COLONOSCOPY: Findings: Larynx: Normal Esophagus: GE junction at 35 cms. Mild focal esophagitis at GE junction and no Green's. Stomach: Mild antral erythema - biopsies were obtained from the antrum to check for H Pylori. Grade 2 flap valve on retroflexed examination of the cardia. Duodenum: Normal bulb and descending duodenum Biopsies were obtained from descending duodenum to check for celiac sprue Intervention: Biopsies as noted above COLONOSCOPY PROCEDURE NOTE Instrument: Olympus PCF H 190 L variable stiffness pediatric colonoscope Monitoring: Vital signs and clinical assessment, intermittent blood pressure monitoring, continuous EKG monitoring, Pulse oximetry and Carbon Dioxide monitoring were done throughout the procedure. Please see anesthesia flowsheet. Colon withdrawl time was 18 minutes. Procedure: The patient was placed in the left lateral decubitis position and pre-procedure medications were administered. After a digital rectal examination of the ano-rectum, the video colonoscope was inserted into the rectum and advanced through the colon to the cecum. The colonoscope was slowly withdrawn in a retrograde panoramic fashion and the colon mucosa was carefully examined including a retroflexed view of the rectum. Findings and interventions are described below. Procedure Difficulty: without difficulty Findings: Terminal Ileum: Not evaluated Cecum: Normal Ascending Colon: Normal Transverse Colon: Moderate diverticulosis Descending Colon: Moderate diverticulosis Sigmoid Colon: Moderate diverticulosis Rectum: Normal Ano-rectum: Moderate internal hemorrhoids Colon preparation: Excellent after some irrigation. [place] Bowel Preparation Scale Right colon; 3 Transverse colon: 3 Left colon; 3 (0 = Unprepared colon segment with mucosa not seen due to solid stool that cannot be cleared. 1 = Portion of mucosa of the colon segment seen, but other areas of the colon segment not well seen due to staining, residual stool and/or opaque liquid. 2 = Minor amount of residual staining, small fragments of stool and/or opaque liquid, but mucosa of colon segment seen well. 3 = Entire mucosa of colon segment seen well with no residual staining, small fragments of stool or opaque liquid) Impression and Post Procedure Diagnosis: Endoscopy Findings: ESOPHAGUS: Mild focal esophagitis at GE junction and no Green's. STOMACH: Mild antral gastritis DUODENUM: Normal Colonoscopy Findings: No polyps were detected Random biopsies were obtained from right and left colon to check for microscopic colitis Moderate diverticulosis seen in the left and transverse colon Moderate hemorrhoids on retroflexed exam. Plan: Repeat Colonoscopy in 10 years if colon biopsies are normal. A summary of above findings and relevant handouts were given to the patient. BIOPSIES SHOWED: A. Small bowel, biopsy: Duodenal mucosa within normal limits. B. Stomach, antrum, biopsy: Antral-type mucosa with mild chronic inactive inflammation; no Helicobacter organisms seen. C. Colon, right, biopsy: Colonic mucosa within normal limits. D. Colon, left, biopsy: Colonic mucosa within normal limits. Letter sent to the patient with biopsy results. Patient was placed on the colonoscopy recall list for repeat colonoscopy in 10 years. TODAY'S VISIT Patient is here today for follow-up and to discuss upper endoscopy and colon oscopy results. Patient denies any ill effects from the prep, anesthesia or procedure itself. Colonoscopy moderate diverticulosis to left side of the colon and transverse colon. No polyps found. Moderate hemorrhoids seen. Upper endoscopy showed mild focal esophagitis at the GE junction and mild gastritis. Patient is taking famotidine at bedtime. She is on Zepbound. Reports that she is moving her bowels well. States that she had couple episodes of abdominal pain and diarrhea. Patient reports that they felt the same as she did when she was diagnosed with diverticulitis in the past. Patient states that she had left over antibiotic and took it. Her symptoms went away. Patient reports frequent postprandial loose stools. Feels like she moves her bowels, however occasionally she will feel like she does not empty them completely. Patient denies melena, hematochezia. Patient lost 30 lb since April Medical History Pericardial cyst, congenital History of Holter monitoring Heart murmur Breast prosthesis or implant fitting/adjustment History of Helicobacter pylori infection Breast implant status delivery delivered Diverticulitis Migraine GERD (gastroesophageal reflux disease) Breast cancer Anxiety Hypercholesteremia Surgical History History of removal of Port-a-Cath H/O endoscopy History of surgery H/O tubal ligation H/O: hysterectomy H/O lumpectomy H/O hernia repair History of mastectomy, total Hx of cholecystectomy (~2000) Family History Maternal Grandmother Breast CA Brother Colitis Social History Alcohol intake: current Comment: Occasional Patient Tobacco Use Status: Former Tobacco user Physical Exam Vital Signs: Last Vital Signs Pulse 70 11/04/24 10:18 BP 126/78 11/04/24 10:18 Pulse Ox 99 11/04/24 10:18 Oxygen Delivery Method Room Air 11/04/24 10:18 BMI result Body Mass Index 38.1 Assessment & Plan Assessment & Plan (1) History of Helicobacter pylori infection: Code(s): Z86.19 - Personal history of other infectious and parasitic diseases Category: Medical (2) Postprandial abdominal bloating: Code(s): R14.0 - Abdominal distension (gaseous) (3) Gastroesophageal reflux disease: Code(s): K21.9 - Gastro-esophageal reflux disease without esophagitis Qualifiers: Esophagitis presence: with esophagitis Esophagitis bleeding: without hemorrhage Qualified Code(s): K21.00 - Gastro-esophageal reflux disease with esophagitis, without bleeding (4) Constipation: Code(s): K59.00 - Constipation, unspecified Qualifiers: Constipation type: slow transit constipation Qualified Code(s): K59.01 - Slow transit constipation (5) Postprandial diarrhea: Code(s): K52.9 - Noninfective gastroenteritis and colitis, unspecified (6) History of diverticulitis of colon: Code(s): Z87.19 - Personal history of other diseases of the digestive system Plan Patient was encouraged to try to take fiber with pre and probiotic. Increase fluid intake and activity to promote better bowel motility. Patient was encoura ged that when she will start getting pain and diarrhea she needs to call our office start with clear liquids for 24 hours then low-fiber diet. Script for Cipro given to patient in case she will have another flare-up. The importance of emptying her bowels daily was stressed. If she will become constipated patient was encouraged to take MiraLax daily. Continue famotidine. Avoid dietary triggers and late night snacking. Staying upright for minimum 3 hours after meals discussed with patient. Patient will follow-up in our office in 6 months, sooner on as needed basis. Patient is agreeable to this plan and verbalizes understanding of instructions. She was given the opportunity to ask questions and all questions answered. Thank you for allowing me to participate in her care fezolinetant causes liver toxicity patient should have liver enzymes checked every few months. Medications: New ciprofloxacin HCl 500 mg PO BID 14 tabs 1RF Coding Level of Care Code Est Pt Level 4 (91983) Complex EM visit Add On G2211 Diagnoses History of Helicobacter pylori infection Z86.19 Postprandial abdominal bloating R14.0 Gastroesophageal reflux disease with esophagitis without hemorrhage K21.00 Esophagitis presence: with esophagitis Esophagitis bleeding: without hemorrhage Slow transit constipation K59.01 Constipation type: slow transit constipation Postprandial diarrhea K52.9 History of diverticulitis of colon Z87.19 Time Spent (min) 35 Comment 25 minutes spent with patient and additional 10 minutes spent reviewing her records
--- OUTSIDE RECORDS SUMMARY | 2024-11-04 10:13 | XMS_ITS | Patient Health Record ---
Author Organization [facility] [address] Address [address] [place] [address] Care Team Providers Care Fiberglass Laminator Name Role Phone IVELISSE ELLIS Unavailable [phone] GREG LANGFORD Unavailable [phone] Allergies Allergen (clinical drug ingredient) Drug/Non Drug Allergy documented on EMR Reaction Allergy Type Onset Date Status Linda Unknown Drug Allergy Active paroxetine Paxil Unknown Drug Allergy Active Adhesive Unknown Allergy Active Latex Latex Unknown Allergy Active valacyclovir Valacyclovir Unknown Drug Allergy A ctive Results Component Value Reference Range Notes PPC Hemoglobin A1C Reviewed date:08/05/2024 09:07:41 AM Interpretation:5.2 Performing Lab: Notes/Report: 5.2 Comp. Metabolic Panel ([id number] Reviewed date:10/30/2024 12:31:26 PM Interpretation: Performing Lab:[facility], [address] [place] [address], Phone - [phone], Director - Alesia Notes/Report: Glucose 74 70-99 mg/dL BUN 10 6-24 mg/dL Creatinine 0.77 0.57-1.00 mg/dL eGFR 97 >59 mL/min/1.73 BUN/Creatinine Ratio 13 9-23 Sodium 142 134-144 mmol/L Potassium 3.8 3.5-5.2 mmol/L Chloride 105 96-106 mmol/L Carbon Dioxide, Total 23 20-29 mmol/L Calcium 9.5 8.7-10.2 mg/dL Protein, Total 6.4 6.0-8.5 g/dL Albumin 4.1 3.9-4.9 g/dL Globulin, Total 2.3 1.5-4.5 g/dL Bilirubin, Total 0.4 0.0-1.2 mg/dL Alkaline Phosphatase 64 44-121 IU/L AST (SGOT) 20 0-40 IU/L ALT (SGPT) 25 0-32 IU/L Lipid Panel-[id number] Reviewed date:10/30/2024 12:31:26 PM Interpretation: Performing Lab:[facility], [address] [place] [address], Phone - [phone], Director - Alesia Notes/Report: Cholesterol, Total 150 100-199 mg/dL Triglycerides 115 0-149 mg/dL HDL Cholesterol 53 >39 mg/dL VLDL Cholesterol Ho 21 5-40 mg/dL LDL Chol Calc (NIH) 76 0-99 mg/dL Vitamin D, [id number] Reviewed date:10/30/2024 12:31:26 PM Interpretation: Performing Lab:[facility], [address] [place] [address], Phone - [phone], Director - Alesia Notes/Report: Vitamin D, 25-Hydroxy 35.1 30.0-100.0 ng/mL Vitamin D deficiency has been defined by the [place] [employer] and an Endocrine Society practice guideline as a level of serum 25-OH vitamin D less than 20 ng/mL (1,2). The Endocrine Society went on to further define vitamin D insufficiency as a level between 21 and 29 ng/mL (2). 1. IOM ([place] [employer]). 2010. Dietary reference intakes for calcium and D. [place]: The National Academies Press. 2. Margot MF, Eloy NC, Jerad CONDE, et al. Evaluation, treatment, and prevention of vitamin D deficiency: an Endocrine Society clinical practice guideline. JCEM. 2010; 96(7):1911-30. CBC With Differential/Platel et-[id number] Reviewed date:10/30/2024 12:31:26 PM Interpretation: Performing Lab:[facility], [address] [place] [address], Phone - [phone], Director - Alesia Notes/Report: WBC 7.5 3.4-10.8 x10E3/uL RBC 4.61 3.77-5.28 x10E6/uL Hemoglobin 12.9 11.1-15.9 g/dL Hematocrit 40.6 34.0-46.6 % MCV 88 79-97 fL MCH 28.0 26.6-33.0 pg MCHC 31.8 31.5-35.7 g/dL RDW 12.8 11.7-15.4 % Platelets 273 150-450 x10E3/uL Neutrophils 54 Not Estab. % Lymphs 32 Not Estab. % Monocytes 7 Not Estab. % Eos 6 Not Estab. % Basos 1 Not Estab. % Neutrophils (Absolute) 4.1 1.4-7.0 x10E3/uL Lymphs (Absolute) 2.4 0.7-3.1 x10E3/uL Monocytes(Absolute) 0.5 0.1-0.9 x10E3/uL Eos (Absolute) 0.4 0.0-0.4 x10E3/uL Baso (Absolute) 0.1 0.0-0.2 x10E3/uL Immature Granulocytes 0 Not Estab. % Immature Grans (Abs) 0.0 0.0-0.1 x10E3/uL [id number] Reviewed date:10/30/2024 12:31:26 PM Interpretation: Performing Lab:[facility] [place], [address] [place] [address], Phone - [phone], Director - MDJodry Notes/Report: TSH 1.330 0.450-4.500 uIU/mL Urinalysis, Complete-[id number] Reviewed date:10/30/2024 12:31:26 PM Interpretation: Performing Lab:[facility], [address] [place] [address], Phone - [phone], Director - MDJodry Notes/Report: Specific Bates 1.023 1.005-1.030 pH 6.5 5.0-7.5 Urine-Color Yellow Yellow Appearance Cloudy Clear WBC Esterase Negative Negative Protein Trace Negative/Trace Glucose Negative Negative Ketones Negative Negative Occult Blood Negative Negative Bilirubin Negative Negative Urobilinogen,Semi-Qn 0.2 0.2-1.0 mg/dL Nitrite, Urine Negative Negative Microscopic Examination Micr oscopic follows if indicated. Microscopic Examination See below: Micr oscopic was indicated and was performed. WBC 0-5 0 - 5 /hpf RBC None seen 0 - 2 /hpf Epithelial Cells (non renal) >10 0 - 10 /hpf Casts None seen None seen /lpf Crystals Present N/A Crystal Type Calcium Oxalate N/A Bacteria Many None seen/Few Hemoglobin [id number] Reviewed date:10/30/2024 12:31:26 PM Interpretation: Performing Lab:[facility], [address], [place], Phone - [phone], Director - Alesia Notes/Report: Hemoglobin A1c 5.3 4.8-5.6 % . Prediabetes: 5.7 - 6.4 Diabetes: >6.4 Glycemic control for adults with diabetes: <7.0 Reason For Referral No Information Medications Medication SIG (Take, Route, Frequency, Duration) Notes Start Date End Date Status Vitamin D (Cholecalciferol) 50 MCG (1999) 1 capsule Orally Once a day; Duration: 30 day(s) 06/22/2024 Active Famotidine 20 MG Oral; Duration: 90 Days Active Zepbound 12.5 MG/0.5ML 12.5mg Subcutaneo us weekly; Duration: 30 days 09/14/2024 Active Veozah 45 MG TAKE ONE TABLET BY MOUTH EVERY DAY AT THE SAME TIME EVERY DAY. Oral; Duration: 30 Days Active Tamoxifen Citrate 20 MG Oral; Duration: 90 Days Active hydroCHLOROthiazide 12.5 MG Oral; Durati on: 90 Days Active Atorvastatin Calcium 20 MG Oral; Duratio n: 90 Days Active buPROPion HCl ER (XL) 150 MG Oral; Durat ion: 90 Days Active Zepbound 7.5 MG/0.5ML INJECT 7.5MG 0.5ML ) UNDER THE SKIN ONCE WEEKLY Subcutaneous; Duration: 28 Days Not-Taking B Complex - as directed Orally Active Sulfamethoxazole-Trimethopri m 800-160 MG 1 tablet Orally every 12 hours; Duration: 7 days 10/26/2024 Active Escitalopram Oxalate 10 MG Oral; Duratio n: 90 Days Active Social History Tobacco Use: Social History Observation Description Date Details (start date - stop date) Never Smoker NA - NA Tobacco Use/Smoking Question Answer Notes Are you a nonsmoker Alcohol Screen (Audit-C) Question Answer Notes Did you have a drink contain ing alcohol in the past year? Yes How often did you have a dri nk containing alcohol in the past year? 2 to 4 times a month (2 points) Points 2 Interpretation Negative Problems Problem Type SNOMED Code ICD Code Onset Dates Problem Status W/U Status Risk Notes Problem Obesity due to excess calories (611959275) Other obesity due to excess calories (E66.09) Active confirmed Problem Essential hypertension (08544184) Essential (primary) hypertension (I10) Active confirmed Problem Morbid obesity (834314121) Morbid obesity (E66.01) Active confirmed Problem Diverticulitis (10251569) Diverticulitis (K57.92) Active confirmed Problem Anxiety (33470629) Anxiety (F41.9) Active confirmed Problem Body mass index 40+ - morbidly obese (819505581) BMI 40.0-44.9, adult (Z68.41) Active confirmed Problem Body mass index 35.00 to 39.99 (443017539072937) Body mass index [BMI] 39.0-39.9, adult (Z68.39) Active confirmed Problem Dyslipidemia (184811611) Dyslipidemia (E78.5) Active confirmed Problem Polycystic ovary syndrome (disorder) (142303451) PCOS (polycystic ovarian syndrome) (E28.2) Active confirmed Problem Avitaminosis D (49099276) Avitaminosis D (E55.9) Active confirmed Problem Malignant neoplasm (631765115) Malignant neoplasm (C80.1) Active confirmed Vital Signs Heart Rate 84 /min 11/02/2024 Respiratory Rate 16 /min 06/22/2024 Oximetry 98 % 11/02/2024 Blood pressure diastolic 82 mm Hg 11/02/2024 Height 64 in 11/02/2024 Blood pressure systolic 118 mm Hg 11/02/2024 Weight 225 lbs 11/02/2024 BMI 38.62 kg/m2 11/02/2024 Encounters Encounter Location Date Provider Diagnosis [facility] [address] [address] 06/22/2024 IVELISSE ELLIS Morbid obesity E66.0 1 ; BMI 40.0-44.9, adult Z68.41 ; Essential (primary) hypertension I10 ; Prediabetes R73.03 ; Murmur, cardiac R01.1 ; Palpitations R00.2 ; Dyslipidemia E78.5 and PCOS (polycystic ovarian syndrome) E28.2 [facility] [address] [address] 08/05/2024 IVELISSE ELLIS Morbid obesity E66.0 1 ; BMI 40.0-44.9, adult Z68.41 ; Dietary counseling and surveillance Z71.3 ; Essential (primary) hypertension I10 ; Prediabetes R73.03 ; Murmur, cardiac R01.1 ; Palpitations R00.2 ; Dyslipidemia E78.5 and PCOS (polycystic ovarian syndrome) E28.2 [facility] [address] [address] 09/14/2024 IVELISSE ELLIS Other obesity due to excess calories E66.09 ; Body mass index [BMI] 39.0-39.9, adult Z68.39 ; Dietary counseling and surveillance Z71.3 ; Essential (primary) hypertension I10 ; Prediabetes R73.03 ; Murmur, cardiac R01.1 ; Palpitations R00.2 ; Dyslipidemia E78.5 ; PCOS (polycystic ovarian syndrome) E28.2 and Encounter for examination of blood pressure without abnormal findings Z01.30 [facility] [address] [address] 10/26/2024 GREG LANGFORD Diverticulitis K57.9 2 ; Essential (primary) hypertension I10 ; Dyslipidemia E78.5 ; Morbid obesity E66.01 ; Malignant neoplasm C80.1 ; Anxiety F41.9 and Vasomotor flushing R23.2 [facility] [address] [address] 11/02/2024 IVELISSE ELLIS Other obesity due to excess calories E66.09 ; Annual physical exam Z00.00 ; Body mass index [BMI] 39.0-39.9, adult Z68.39 ; Dietary counseling and surveillance Z71.3 ; Essential (primary) hypertension I10 ; Prediabetes R73.03 ; Murmur, cardiac R01.1 ; Palpitations R00.2 ; Dyslipidemia E78.5 ; PCOS (polycystic ovarian syndrome) E28.2 and Encounter for examination of blood pressure without abnormal findings Z01.[address] [facility] [address] [place] [address] 09/07/2024 IVELISSE ELLIS [facility] [address] [address] 10/25/2024 IVELISSE ELLIS Assessments Encounter Date Diagnosis (ICD Code) Assessment Notes Treatment Notes Treatment Clinical Notes Section Notes 06/22/2024 Morbid obesity (ICD-10 - E66.01) Complex medical history as per HPI Prediabetic state, lets recheck her A1c at her next visit, will increase Zepbound to 10 mg Other chronic conditions are stable at this time Labs reviewed Of note, some information is being carried forward from prior records for informational purposes only and is being cited so that efficiency, safety and quality of the patient's care is not compromised This note was prepared using voice recognition software and direct typing Please excuse inadvertent pelt salter or typing errors, or uncorrected word substitutions Although every attempt has been made by the provider to proofread this document, occasional misspellings and typographical errors may still be present Due to the previous pandemic, and the use of personal protective equipment (PPE) This may decrease voice recognition accuracy Inadvertent pelt salter errors may occur 06/22/2024 BMI 40.0-44.9, adult (ICD-10 - Z68.41) Complex medical history as per HPI Prediabetic state, lets recheck her A1c at her next visit, will increase Zepbound to 10 mg Other chronic conditions are stable at this time Labs reviewed Of note, some information is being carried forward from prior records for informational purposes only and is being cited so that efficiency, safety and quality of the patient's care is not compromised This note was prepared using voice recognition software and direct typing Please excuse inadvertent pelt salter or typing errors, or uncorrected word substitutions Although every attempt has been made by the provider to proofread this document, occasional misspellings and typographical errors may still be present Due to the previous pandemic, and the use of personal protective equipment (PPE) This may decrease voice recognition accuracy Inadvertent pelt salter errors may occur 08/05/2024 Morbid obesity (ICD-10 - E66.01) #Weight Management 08/05/2024 She is now euglycemic and thriving, A1c 5.2 Continue current dosing model 10 mg Body composition analysis also improving with fat mass loss Of note, some information is being carried forward from prior records for informational purposes only and is being cited so that efficiency, safety and quality of the patient's care is not compromised This note was prepared using voice recognition software and direct typing Please excuse inadvertent pelt salter or typing errors, or uncorrected word substitutions Although every attempt has been made by the provider to proofread this document, occasional misspellings and typographical errors may still be present Due to the previous pandemic, and the use of personal protective equipment (PPE) This may decrease voice recognition accuracy Inadvertent pelt salter errors may occur 08/05/2024 BMI 40.0-44.9, adult (ICD-10 - Z68.41) #Weight Management 08/05/2024 She is now euglycemic and thriving, A1c 5.2 Continue current dosing model 10 mg Body composition analysis also improving with fat mass loss Of note, some information is being carried forward from prior records for informational purposes only and is being cited so that efficiency, safety and quality of the patient's care is not compromised This note was prepared using voice recognition software and direct typing Please excuse inadvertent pelt salter or typing errors, or uncorrected word substitutions Although every attempt has been made by the provider to proofread this document, occasional misspellings and typographical errors may still be present Due to the previous pandemic, and the use of personal protective equipment (PPE) This may decrease voice recognition accuracy Inadvertent pelt salter errors may occur 09/14/2024 Other obesity due to excess calories (ICD-10 - E66.09) Acute Concerns/Problem List: 09/14/2024 Increasing Zepbound dosing from 10 mg to 12.5 mg Discontinue HCTZ, no longer needed She is now euglycemic and thriving, A1c 5.2 Body composition analysis also improving with fat mass loss _update labs prior to next visit Of note, some information is being carried forward from prior records for informational purposes only and is being cited so that efficiency, safety and quality of the patient's care is not compromised This note was prepared using voice recognition software and direct typing Please excuse inadvertent pelt salter or typing errors, or uncorrected word substitutions Although every attempt has been made by the provider to proofread this document, occasional misspellings and typographical errors may still be present Due to the previous pandemic, and the use of personal protective equipment (PPE) This may decrease voice recognition accuracy Inadvertent pelt salter errors may occur 10/26/2024 Essential (primary) hypertension (ICD-10 - I10) Janie is a 44-year-old female with history of multiple plantar conditions who presents today for urgent visit for diverticulitis flare that began on Thursday. She reports having diaphoresis, diarrhea, and left-sided abdominal pain. Has been on a liquid only diet since Thursday. Reports continues to have symptoms despite implementing bowel rest. She does follow-up with gastroenterology, has visit scheduled in November. She reports no fevers or chills and is able to tolerate p.o. intake. On exam the patient is well-appearing, speaking in normal sentences and is in no acute distress. Vital signs are stable. Cardiopulmonary examination unremarkable. On abdominal exam, abdomen is soft to palpation, active bowel sounds present. There is tenderness to palpation of the left lower quadrant however no rebound tenderness and her abdomen is not rigid. Low suspicion for peritonitis. Based on assessment and examination, suspect a uncomplicated flare of diverticulitis. Advised the patient to continue a liquid only diet and to progressively incorporate solids as her symptoms improve. Discussed benefit of maintaining a high-fiber diet after this flare subsides. Because of no improvement despite liquid only diet, we will initiate empiric antibiotics. Will begin with Bactrim double strength 160/800 mg orally every 12 hours x 7 days. Discussed proper use of medication and side effects. I advised her to go for her updated labs including CBC and CMP. She is following up with PCP on 11/02/2024, discussed that if symptoms do not improve, can consider CT scan to screen for colonic thickening or production of abscess. Patient understanding, discussed red flag signs that would warrant ED evaluation. All patient questions answered at this time. # Hypertension: Blood pressure stable in office today. Continue hydrochlorothiazide 12.5 mg once daily. # Hot flashes: Continue Veoza 45 mg 1 tablet daily. # Hyperlipidemia: Continue atorvastatin 20 mg once daily. # Breast cancer: In remission at this time. Continue tamoxifen 20 mg once daily and follow-up with gynecology/oncology. # Anxiety/depression: Continue bupropion 150 mg once daily. # Obesity: Patient follows with weight management program. Continue Zepbound weekly. All questions have been answered to patient's satisfaction. Patient verbalized understanding of diagnosis and treatments explained. Advised to call sooner prior to next visit it any questions/concerns arise. Case discussed with collaborating physician Shreya Donaldson who reviewed the assessment and plan. Chart, medications, labs, vital signs reviewed. Dictation was accomplished with the use of [employer] voice recognition software, which is prone to medical misidentifications and grammatical errors. This are unintentional and the practitioner does try to identify and correct these, but some could still be present. Please do not hesitate to contact practitioner for clarification. 10/26/2024 Diverticulitis (ICD-10 - K57.92) Janie is a 44-year-old female with history of multiple plantar conditions who presents today for urgent visit for diverticulitis flare that began on Thursday. She reports having diaphoresis, diarrhea, and left-sided abdominal pain. Has been on a liquid only diet since Thursday. Reports continues to have symptoms despite implementing bowel rest. She does follow-up with gastroenterology, has visit scheduled in November. She reports no fevers or chills and is able to tolerate p.o. intake. On exam the patient is well-appearing, speaking in normal sentences and is in no acute distress. Vital signs are stable. Cardiopulmonary examination unremarkable. On abdominal exam, abdomen is soft to palpation, active bowel sounds present. There is tenderness to palpation of the left lower quadrant however no rebound tenderness and her abdomen is not rigid. Low suspicion for peritonitis. Based on assessment and examination, suspect a uncomplicated flare of diverticulitis. Advised the patient to continue a liquid only diet and to progressively incorporate solids as her symptoms improve. Discussed benefit of maintaining a high-fiber diet after this flare subsides. Because of no improvement despite liquid only diet, we will initiate empiric antibiotics. Will begin with Bactrim double strength 160/800 mg orally every 12 hours x 7 days. Discussed proper use of medication and side effects. I advised her to go for her updated labs including CBC and CMP. She is following up with PCP on 11/02/2024, discussed that if symptoms do not improve, can consider CT scan to screen for colonic thickening or production of abscess. Patient understanding, discussed red flag signs that would warrant ED evaluation. All patient questions answered at this time. # Hypertension: Blood pressure stable in office today. Continue hydrochlorothiazide 12.5 mg once daily. # Hot flashes: Continue Veoza 45 mg 1 tablet daily. # Hyperlipidemia: Continue atorvastatin 20 mg once daily. # Breast cancer: In remission at this time. Continue tamoxifen 20 mg once daily and follow-up with gynecology/oncology. # Anxiety/depression: Continue bupropion 150 mg once daily. # Obesity: Patient follows with weight management program. Continue Zepbound weekly. All questions have been answered to patient's satisfaction. Patient verbalized understanding of diagnosis and treatments explained. Advised to call sooner prior to next visit it any questions/concerns arise. Case discussed with collaborating physician Shreya Donaldson who reviewed the assessment and plan. Chart, medications, labs, vital signs reviewed. Dictation was accomplished with the use of Dragon voice recognition software, which is prone to medical misidentifications and grammatical errors. This are unintentional and the practitioner does try to identify and correct these, but some could still be present. Please do not hesitate to contact practitioner for clarification. 11/02/2024 Other obesity due to excess calories (ICD-10 - E66.09) #Weight Management 11/02/2024 Will continue seeing her for weight management Of note, some information is being carried forward from prior records for informational purposes only and is being cited so that efficiency, safety and quality of the patient's care is not compromised This note was prepared using voice recognition software and direct typing Please excuse inadvertent pelt salter or typing errors, or uncorrected word substitutions Although every attempt has been made by the provider to proofread this document, occasional misspellings and typographical errors may still be present Due to the previous pandemic, and the use of personal protective equipment (PPE) This may decrease voice recognition accuracy Inadvertent pelt salter errors may occur 11/02/2024 Annual physical exam (ICD-10 - Z00.00) #Weight Management 11/02/2024 Will continue seeing her for weight management Of note, some information is being carried forward from prior records for informational purposes only and is being cited so that efficiency, safety and quality of the patient's care is not compromised This note was prepared using voice recognition software and direct typing Please excuse inadvertent pelt salter or typing errors, or uncorrected word substitutions Although every attempt has been made by the provider to proofread this document, occasional misspellings and typographical errors may still be present Due to the previous pandemic, and the use of personal protective equipment (PPE) This may decrease voice recognition accuracy Inadvertent pelt salter errors may occur 11/02/2024 Body mass index [BMI] 39.0-39.9, adult (ICD-10 - Z68.39) #Weight Management 11/02/2024 Will continue seeing her for weight management Of note, some information is being carried forward from prior records for informational purposes only and is being cited so that efficiency, safety and quality of the patient's care is not compromised This note was prepared using voice recognition software and direct typing Please excuse inadvertent pelt salter or typing errors, or uncorrected word substitutions Although every attempt has been made by the provider to proofread this document, occasional misspellings and typographical errors may still be present Due to the previous pandemic, and the use of personal protective equipment (PPE) This may decrease voice recognition accuracy Inadvertent pelt salter errors may occur 10/26/2024 Dyslipidemia (ICD-10 - E78.5) Janie is a 44-year-old female with history of multiple plantar conditions who presents today for urgent visit for diverticulitis flare that began on Thursday. She reports having diaphoresis, diarrhea, and left-sided abdominal pain. Has been on a liquid only diet since Thursday. Reports continues to have symptoms despite implementing bowel rest. She does follow-up with gastroenterology, has visit scheduled in November. She reports no fevers or chills and is able to tolerate p.o. intake. On exam the patient is well-appearing, speaking in normal sentences and is in no acute distress. Vital signs are stable. Cardiopulmonary examination unremarkable. On abdominal exam, abdomen is soft to palpation, active bowel sounds present. There is tenderness to palpation of the left lower quadrant however no rebound tenderness and her abdomen is not rigid. Low suspicion for peritonitis. Based on assessment and examination, suspect a uncomplicated flare of diverticulitis. Advised the patient to continue a liquid only diet and to progressively incorporate solids as her symptoms improve. Discussed benefit of maintaining a high-fiber diet after this flare subsides. Because of no improvement despite liquid only diet, we will initiate empiric antibiotics. Will begin with Bactrim double strength 160/800 mg orally every 12 hours x 7 days. Discussed proper use of medication and side effects. I advised her to go for her updated labs including CBC and CMP. She is following up with PCP on 11/02/2024, discussed that if symptoms do not improve, can consider CT scan to screen for colonic thickening or production of abscess. Patient understanding, discussed red flag signs that would warrant ED evaluation. All patient questions answered at this time. # Hypertension: Blood pressure stable in office today. Continue hydrochlorothiazide 12.5 mg once daily. # Hot flashes: Continue Veoza 45 mg 1 tablet daily. # Hyperlipidemia: Continue atorvastatin 20 mg once daily. # Breast cancer: In remission at this time. Continue tamoxifen 20 mg once daily and follow-up with gynecology/oncology. # Anxiety/depression: Continue bupropion 150 mg once daily. # Obesity: Patient follows with weight management program. Continue Zepbound weekly. All questions have been answered to patient's satisfaction. Patient verbalized understanding of diagnosis and treatments explained. Advised to call sooner prior to next visit it any questions/concerns arise. Case discussed with collaborating physician Shreya Donaldson who reviewed the assessment and plan. Chart, medications, labs, vital signs reviewed. Dictation was accomplished with the use of [employer] voice recognition software, which is prone to medical misidentifications and grammatical errors. This are unintentional and the practitioner does try to identify and correct these, but some could still be present. Please do not hesitate to contact practitioner for clarification. 09/14/2024 Body mass index [BMI] 39.0-39.9, adult (ICD-10 - Z68.39) Acute Concerns/Problem List: 09/14/2024 Increasing Zepbound dosing from 10 mg to 12.5 mg Discontinue HCTZ, no longer needed She is now euglycemic and thriving, A1c 5.2 Body composition analysis also improving with fat mass loss _update labs prior to next visit Of note, some information is being carried forward from prior records for informational purposes only and is being cited so that efficiency, safety and quality of the patient's care is not compromised This note was prepared using voice recognition software and direct typing Please excuse inadvertent pelt salter or typing errors, or uncorrected word substitutions Although every attempt has been made by the provider to proofread this document, occasional misspellings and typographical errors may still be present Due to the previous pandemic, and the use of personal protective equipment (PPE) This may decrease voice recognition accuracy Inadvertent pelt salter errors may occur 08/05/2024 Dietary counseling and surveillance (ICD-10 - Z71.3) #Weight Management 08/05/2024 She is now euglycemic and thriving, A1c 5.2 Continue current dosing model 10 mg Body composition analysis also improving with fat mass loss Of note, some information is being carried forward from prior records for informational purposes only and is being cited so that efficiency, safety and quality of the patient's care is not compromised This note was prepared using voice recognition software and direct typing Please excuse inadvertent pelt salter or typing errors, or uncorrected word substitutions Although every attempt has been made by the provider to proofread this document, occasional misspellings and typographical errors may still be present Due to the previous pandemic, and the use of personal protective equipment (PPE) This may decrease voice recognition accuracy Inadvertent pelt salter errors may occur 06/22/2024 Essential (primary) hypertension (ICD-10 - I10) Complex medical history as per [facility] Prediabetic state, lets recheck her A1c at her next visit, will increase Zepbound to 10 mg Other chronic conditions are stable at this time Labs reviewed Of note, some information is being carried forward from prior records for informational purposes only and is being cited so that efficiency, safety and quality of the patient's care is not compromised This note was prepared using voice recognition software and direct typing Please excuse inadvertent pelt salter or typing errors, or uncorrected word substitutions Although every attempt has been made by the provider to proofread this document, occasional misspellings and typographical errors may still be present Due to the previous pandemic, and the use of personal protective equipment (PPE) This may decrease voice recognition accuracy Inadvertent pelt salter errors may occur 06/22/2024 Prediabetes (ICD-10 - R73.03) Complex medical history as per [facility] Prediabetic state, lets recheck her A1c at her next visit, will increase Zepbound to 10 mg Other chronic conditions are stable at this time Labs reviewed Of note, some information is being carried forward from prior records for informational purposes only and is being cited so that efficiency, safety and quality of the patient's care is not compromised This note was prepared using voice recognition software and direct typing Please excuse inadvertent pelt salter or typing errors, or uncorrected word substitutions Although every attempt has been made by the provider to proofread this document, occasional misspellings and typographical errors may still be present Due to the previous pandemic, and the use of personal protective equipment (PPE) This may decrease voice recognition accuracy Inadvertent pelt salter errors may occur 08/05/2024 Essential (primary) hypertension (ICD-10 - I10) #Weight Management 08/05/2024 She is now euglycemic and thriving, A1c 5.2 Continue current dosing model 10 mg Body composition analysis also improving with fat mass loss Of note, some information is being carried forward from prior records for informational purposes only and is being cited so that efficiency, safety and quality of the patient's care is not compromised This note was prepared using voice recognition software and direct typing Please excuse inadvertent pelt salter or typing errors, or uncorrected word substitutions Although every attempt has been made by the provider to proofread this document, occasional misspellings and typographical errors may still be present Due to the previous pandemic, and the use of personal protective equipment (PPE) This may decrease voice recognition accuracy Inadvertent pelt salter errors may occur 09/14/2024 Dietary counseling and surveillance (ICD-10 - Z71.3) Acute Concerns/Problem List: 09/14/2024 Increasing Zepbound dosing from 10 mg to 12.5 mg Discontinue HCTZ, no longer needed She is now euglycemic and thriving, A1c 5.2 Body composition analysis also improving with fat mass loss _update labs prior to next visit Of note, some information is being carried forward from prior records for informational purposes only and is being cited so that efficiency, safety and quality of the patient's care is not compromised This note was prepared using voice recognition software and direct typing Please excuse inadvertent pelt salter or typing errors, or uncorrected word substitutions Although every attempt has been made by the provider to proofread this document, occasional misspellings and typographical errors may still be present Due to the previous pandemic, and the use of personal protective equipment (PPE) This may decrease voice recognition accuracy Inadvertent pelt salter errors may occur 10/26/2024 Morbid obesity (ICD-10 - E66.01) Janie is a 44-year-old female with history of multiple plantar conditions who presents today for urgent visit for diverticulitis flare that began on Thursday. She reports having diaphoresis, diarrhea, and left-sided abdominal pain. Has been on a liquid only diet since Thursday. Reports continues to have symptoms despite implementing bowel rest. She does follow-up with gastroenterology, has visit scheduled in November. She reports no fevers or chills and is able to tolerate p.o. intake. On exam the patient is well-appearing, speaking in normal sentences and is in no acute distress. Vital signs are stable. Cardiopulmonary examination unremarkable. On abdominal exam, abdomen is soft to palpation, active bowel sounds present. There is tenderness to palpation of the left lower quadrant however no rebound tenderness and her abdomen is not rigid. Low suspicion for peritonitis. Based on assessment and examination, suspect a uncomplicated flare of diverticulitis. Advised the patient to continue a liquid only diet and to progressively incorporate solids as her symptoms improve. Discussed benefit of maintaining a high-fiber diet after this flare subsides. Because of no improvement despite liquid only diet, we will initiate empiric antibiotics. Will begin with Bactrim double strength 160/800 mg orally every 12 hours x 7 days. Discussed proper use of medication and side effects. I advised her to go for her updated labs including CBC and CMP. She is following up with PCP on 11/02/2024, discussed that if symptoms do not improve, can consider CT scan to screen for colonic thickening or production of abscess. Patient understanding, discussed red flag signs that would warrant ED evaluation. All patient questions answered at this time. # Hypertension: Blood pressure stable in office today. Continue hydrochlorothiazide 12.5 mg once daily. # Hot flashes: Continue Veoza 45 mg 1 tablet daily. # Hyperlipidemia: Continue atorvastatin 20 mg once daily. # Breast cancer: In remission at this time. Continue tamoxifen 20 mg once daily and follow-up with gynecology/oncology. # Anxiety/depression: Continue bupropion 150 mg once daily. # Obesity: Patient follows with weight management program. Continue Zepbound weekly. All questions have been answered to patient's satisfaction. Patient verbalized understanding of diagnosis and treatments explained. Advised to call sooner prior to next visit it any questions/concerns arise. Case discussed with collaborating physician Shreya Donaldson who reviewed the assessment and plan. Chart, medications, labs, vital signs reviewed. Dictation was accomplished with the use of [employer] voice recognition software, which is prone to medical misidentifications and grammatical errors. This are unintentional and the practitioner does try to identify and correct these, but some could still be present. Please do not hesitate to contact practitioner for clarification. 11/02/2024 Dietary counseling and surveillance (ICD-10 - Z71.3) #Weight Management 11/02/2024 Will continue seeing her for weight management Of note, some information is being carried forward from prior records for informational purposes only and is being cited so that efficiency, safety and quality of the patient's care is not compromised This note was prepared using voice recognition software and direct typing Please excuse inadvertent pelt salter or typing errors, or uncorrected word substitutions Although every attempt has been made by the provider to proofread this document, occasional misspellings and typographical errors may still be present Due to the previous pandemic, and the use of personal protective equipment (PPE) This may decrease voice recognition accuracy Inadvertent pelt salter errors may occur 11/02/2024 Essential (primary) hypertension (ICD-10 - I10) #Weight Management 11/02/2024 Will continue seeing her for weight management Of note, some information is being carried forward from prior records for informational purposes only and is being cited so that efficiency, safety and quality of the patient's care is not compromised This note was prepared using voice recognition software and direct typing Please excuse inadvertent pelt salter or typing errors, or uncorrected word substitutions Although every attempt has been made by the provider to proofread this document, occasional misspellings and typographical errors may still be present Due to the previous pandemic, and the use of personal protective equipment (PPE) This may decrease voice recognition accuracy Inadvertent pelt salter errors may occur 10/26/2024 Malignant neoplasm (ICD-10 - C80.1) Janie is a 44-year-old female with history of multiple plantar conditions who presents today for urgent visit for diverticulitis flare that began on Thursday. She reports having diaphoresis, diarrhea, and left-sided abdominal pain. Has been on a liquid only diet since Thursday. Reports continues to have symptoms despite implementing bowel rest. She does follow-up with gastroenterology, has visit scheduled in November. She reports no fevers or chills and is able to tolerate p.o. intake. On exam the patient is well-appearing, speaking in normal sentences and is in no acute distress. Vital signs are stable. Cardiopulmonary examination unremarkable. On abdominal exam, abdomen is soft to palpation, active bowel sounds present. There is tenderness to palpation of the left lower quadrant however no rebound tenderness and her abdomen is not rigid. Low suspicion for peritonitis. Based on assessment and examination, suspect a uncomplicated flare of diverticulitis. Advised the patient to continue a liquid only diet and to progressively incorporate solids as her symptoms improve. Discussed benefit of maintaining a high-fiber diet after this flare subsides. Because of no improvement despite liquid only diet, we will initiate empiric antibiotics. Will begin with Bactrim double strength 160/800 mg orally every 12 hours x 7 days. Discussed proper use of medication and side effects. I advised her to go for her updated labs including CBC and CMP. She is following up with PCP on 11/02/2024, discussed that if symptoms do not improve, can consider CT scan to screen for colonic thickening or production of abscess. Patient understanding, discussed red flag signs that would warrant ED evaluation. All patient questions answered at this time. # Hypertension: Blood pressure stable in office today. Continue hydrochlorothiazide 12.5 mg once daily. # Hot flashes: Continue Veoza 45 mg 1 tablet daily. # Hyperlipidemia: Continue atorvastatin 20 mg once daily. # Breast cancer: In remission at this time. Continue tamoxifen 20 mg once daily and follow-up with gynecology/oncology. # Anxiety/depression: Continue bupropion 150 mg once daily. # Obesity: Patient follows with weight management program. Continue Zepbound weekly. All questions have been answered to patient's satisfaction. Patient verbalized understanding of diagnosis and treatments explained. Advised to call sooner prior to next visit it any questions/concerns arise. Case discussed with collaborating physician Shreya Donaldson who reviewed the assessment and plan. Chart, medications, labs, vital signs reviewed. Dictation was accomplished with the use of [employer] voice recognition software, which is prone to medical misidentifications and grammatical errors. This are unintentional and the practitioner does try to identify and correct these, but some could still be present. Please do not hesitate to contact practitioner for clarification. 09/14/2024 Essential (primary) hypertension (ICD-10 - I10) Acute Concerns/Problem List: 09/14/2024 Increasing Zepbound dosing from 10 mg to 12.5 mg Discontinue HCTZ, no longer needed She is now euglycemic and thriving, A1c 5.2 Body composition analysis also improving with fat mass loss _update labs prior to next visit Of note, some information is being carried forward from prior records for informational purposes only and is being cited so that efficiency, safety and quality of the patient's care is not compromised This note was prepared using voice recognition software and direct typing Please excuse inadvertent pelt salter or typing errors, or uncorrected word substitutions Although every attempt has been made by the provider to proofread this document, occasional misspellings and typographical errors may still be present Due to the previous pandemic, and the use of personal protective equipment (PPE) This may decrease voice recognition accuracy Inadvertent pelt salter errors may occur 08/05/2024 Prediabetes (ICD-10 - R73.03) #Weight Management 08/05/2024 She is now euglycemic and thriving, A1c 5.2 Continue current dosing model 10 mg Body composition analysis also improving with fat mass loss Of note, some information is being carried forward from prior records for informational purposes only and is being cited so that efficiency, safety and quality of the patient's care is not compromised This note was prepared using voice recognition software and direct typing Please excuse inadvertent pelt salter or typing errors, or uncorrected word substitutions Although every attempt has been made by the provider to proofread this document, occasional misspellings and typographical errors may still be present Due to the previous pandemic, and the use of personal protective equipment (PPE) This may decrease voice recognition accuracy Inadvertent pelt salter errors may occur 06/22/2024 Murmur, cardiac (ICD-10 - R01.1) Complex medical history as per [facility] Prediabetic state, lets recheck her A1c at her next visit, will increase Zepbound to 10 mg Other chronic conditions are stable at this time Labs reviewed Of note, some information is being carried forward from prior records for informational purposes only and is being cited so that efficiency, safety and quality of the patient's care is not compromised This note was prepared using voice recognition software and direct typing Please excuse inadvertent pelt salter or typing errors, or uncorrected word substitutions Although every attempt has been made by the provider to proofread this document, occasional misspellings and typographical errors may still be present Due to the previous pandemic, and the use of personal protective equipment (PPE) This may decrease voice recognition accuracy Inadvertent pelt salter errors may occur 06/22/2024 Palpitations (ICD-10 - R00.2) Complex medical history as per [facility] Prediabetic state, lets recheck her A1c at her next visit, will increase Zepbound to 10 mg Other chronic conditions are stable at this time Labs reviewed Of note, some information is being carried forward from prior records for informational purposes only and is being cited so that efficiency, safety and quality of the patient's care is not compromised This note was prepared using voice recognition software and direct typing Please excuse inadvertent pelt salter or typing errors, or uncorrected word substitutions Although every attempt has been made by the provider to proofread this document, occasional misspellings and typographical errors may still be present Due to the previous pandemic, and the use of personal protective equipment (PPE) This may decrease voice recognition accuracy Inadvertent pelt salter errors may occur 09/14/2024 Prediabetes (ICD-10 - R73.03) Acute Concerns/Problem List: 09/14/2024 Increasing Zepbound dosing from 10 mg to 12.5 mg Discontinue HCTZ, no longer needed She is now euglycemic and thriving, A1c 5.2 Body composition analysis also improving with fat mass loss _update labs prior to next visit Of note, some information is being carried forward from prior records for informational purposes only and is being cited so that efficiency, safety and quality of the patient's care is not compromised This note was prepared using voice recognition software and direct typing Please excuse inadvertent pelt salter or typing errors, or uncorrected word substitutions Although every attempt has been made by the provider to proofread this document, occasional misspellings and typographical errors may still be present Due to the previous pandemic, and the use of personal protective equipment (PPE) This may decrease voice recognition accuracy Inadvertent pelt salter errors may occur 10/26/2024 Anxiety (ICD-10 - F41.9) Janie is a 44-year-old female with history of multiple plantar conditions who presents today for urgent visit for diverticulitis flare that began on Thursday. She reports having diaphoresis, diarrhea, and left-sided abdominal pain. Has been on a liquid only diet since Thursday. Reports continues to have symptoms despite implementing bowel rest. She does follow-up with gastroenterology, has visit scheduled in November. She reports no fevers or chills and is able to tolerate p.o. intake. On exam the patient is well-appearing, speaking in normal sentences and is in no acute distress. Vital signs are stable. Cardiopulmonary examination unremarkable. On abdominal exam, abdomen is soft to palpation, active bowel sounds present. There is tenderness to palpation of the left lower quadrant however no rebound tenderness and her abdomen is not rigid. Low suspicion for peritonitis. Based on assessment and examination, suspect a uncomplicated flare of diverticulitis. Advised the patient to continue a liquid only diet and to progressively incorporate solids as her symptoms improve. Discussed benefit of maintaining a high-fiber diet after this flare subsides. Because of no improvement despite liquid only diet, we will initiate empiric antibiotics. Will begin with Bactrim double strength 160/800 mg orally every 12 hours x 7 days. Discussed proper use of medication and side effects. I advised her to go for her updated labs including CBC and CMP. She is following up with PCP on 11/02/2024, discussed that if symptoms do not improve, can consider CT scan to screen for colonic thickening or production of abscess. Patient understanding, discussed red flag signs that would warrant ED evaluation. All patient questions answered at this time. # Hypertension: Blood pressure stable in office today. Continue hydrochlorothiazide 12.5 mg once daily. # Hot flashes: Continue Veoza 45 mg 1 tablet daily. # Hyperlipidemia: Continue atorvastatin 20 mg once daily. # Breast cancer: In remission at this time. Continue tamoxifen 20 mg once daily and follow-up with gynecology/oncology. # Anxiety/depression: Continue bupropion 150 mg once daily. # Obesity: Patient follows with weight management program. Continue Zepbound weekly. All questions have been answered to patient's satisfaction. Patient verbalized understanding of diagnosis and treatments explained. Advised to call sooner prior to next visit it any questions/concerns arise. Case discussed with collaborating physician Shreya Donaldson who reviewed the assessment and plan. Chart, medications, labs, vital signs reviewed. Dictation was accomplished with the use of [employer] voice recognition software, which is prone to medical misidentifications and grammatical errors. This are unintentional and the practitioner does try to identify and correct these, but some could still be present. Please do not hesitate to contact practitioner for clarification. 08/05/2024 Murmur, cardiac (ICD-10 - R01.1) #Weight Management 08/05/2024 She is now euglycemic and thriving, A1c 5.2 Continue current dosing model 10 mg Body composition analysis also improving with fat mass loss Of note, some information is being carried forward from prior records for informational purposes only and is being cited so that efficiency, safety and quality of the patient's care is not compromised This note was prepared using voice recognition software and direct typing Please excuse inadvertent pelt salter or typing errors, or uncorrected word substitutions Although every attempt has been made by the provider to proofread this document, occasional misspellings and typographical errors may still be present Due to the previous pandemic, and the use of personal protective equipment (PPE) This may decrease voice recognition accuracy Inadvertent pelt salter errors may occur 11/02/2024 Prediabetes (ICD-10 - R73.03) #Weight Management 11/02/2024 Will continue seeing her for weight management Of note, some information is being carried forward from prior records for informational purposes only and is being cited so that efficiency, safety and quality of the patient's care is not compromised This note was prepared using voice recognition software and direct typing Please excuse inadvertent pelt salter or typing errors, or uncorrected word substitutions Although every attempt has been made by the provider to proofread this document, occasional misspellings and typographical errors may still be present Due to the previous pandemic, and the use of personal protective equipment (PPE) This may decrease voice recognition accuracy Inadvertent pelt salter errors may occur 11/02/2024 Murmur, cardiac (ICD-10 - R01.1) #Weight Management 11/02/2024 Will continue seeing her for weight management Of note, some information is being carried forward from prior records for informational purposes only and is being cited so that efficiency, safety and quality of the patient's care is not compromised This note was prepared using voice recognition software and direct typing Please excuse inadvertent pelt salter or typing errors, or uncorrected word substitutions Although every attempt has been made by the provider to proofread this document, occasional misspellings and typographical errors may still be present Due to the previous pandemic, and the use of personal protective equipment (PPE) This may decrease voice recognition accuracy Inadvertent pelt salter errors may occur 09/14/2024 Murmur, cardiac (ICD-10 - R01.1) Acute Concerns/Problem List: 09/14/2024 Increasing Zepbound dosing from 10 mg to 12.5 mg Discontinue HCTZ, no longer needed She is now euglycemic and thriving, A1c 5.2 Body composition analysis also improving with fat mass loss _update labs prior to next visit Of note, some information is being carried forward from prior records for informational purposes only and is being cited so that efficiency, safety and quality of the patient's care is not compromised This note was prepared using voice recognition software and direct typing Please excuse inadvertent pelt salter or typing errors, or uncorrected word substitutions Although every attempt has been made by the provider to proofread this document, occasional misspellings and typographical errors may still be present Due to the previous pandemic, and the use of personal protective equipment (PPE) This may decrease voice recognition accuracy Inadvertent pelt salter errors may occur 10/26/2024 Vasomotor flushing (ICD-10 - R23.2) Janie is a 44-year-old female with history of multiple plantar conditions who presents today for urgent visit for diverticulitis flare that began on Thursday. She reports having diaphoresis, diarrhea, and left-sided abdominal pain. Has been on a liquid only diet since Thursday. Reports continues to have symptoms despite implementing bowel rest. She does follow-up with gastroenterology, has visit scheduled in November. She reports no fevers or chills and is able to tolerate p.o. intake. On exam the patient is well-appearing, speaking in normal sentences and is in no acute distress. Vital signs are stable. Cardiopulmonary examination unremarkable. On abdominal exam, abdomen is soft to palpation, active bowel sounds present. There is tenderness to palpation of the left lower quadrant however no rebound tenderness and her abdomen is not rigid. Low suspicion for peritonitis. Based on assessment and examination, suspect a uncomplicated flare of diverticulitis. Advised the patient to continue a liquid only diet and to progressively incorporate solids as her symptoms improve. Discussed benefit of maintaining a high-fiber diet after this flare subsides. Because of no improvement despite liquid only diet, we will initiate empiric antibiotics. Will begin with Bactrim double strength 160/800 mg orally every 12 hours x 7 days. Discussed proper use of medication and side effects. I advised her to go for her updated labs including CBC and CMP. She is following up with PCP on 11/02/2024, discussed that if symptoms do not improve, can consider CT scan to screen for colonic thickening or production of abscess. Patient understanding, discussed red flag signs that would warrant ED evaluation. All patient questions answered at this time. # Hypertension: Blood pressure stable in office today. Continue hydrochlorothiazide 12.5 mg once daily. # Hot flashes: Continue Veoza 45 mg 1 tablet daily. # Hyperlipidemia: Continue atorvastatin 20 mg once daily. # Breast cancer: In remission at this time. Continue tamoxifen 20 mg once daily and follow-up with gynecology/oncology. # Anxiety/depression: Continue bupropion 150 mg once daily. # Obesity: Patient follows with weight management program. Continue Zepbound weekly. All questions have been answered to patient's satisfaction. Patient verbalized understanding of diagnosis and treatments explained. Advised to call sooner prior to next visit it any questions/concerns arise. Case discussed with collaborating physician Shreya Donaldson who reviewed the assessment and plan. Chart, medications, labs, vital signs reviewed. Dictation was accomplished with the use of [employer] voice recognition software, which is prone to medical misidentifications and grammatical errors. This are unintentional and the practitioner does try to identify and correct these, but some could still be present. Please do not hesitate to contact practitioner for clarification. 06/22/2024 Dyslipidemia (ICD-10 - E78.5) Complex medical history as per HPI Prediabetic state, lets recheck her A1c at her next visit, will increase Zepbound to 10 mg Other chronic conditions are stable at this time Labs reviewed Of note, some information is being carried forward from prior records for informational purposes only and is being cited so that efficiency, safety and quality of the patient's care is not compromised This note was prepared using voice recognition software and direct typing Please excuse inadvertent pelt salter or typing errors, or uncorrected word substitutions Although every attempt has been made by the provider to proofread this document, occasional misspellings and typographical errors may still be present Due to the previous pandemic, and the use of personal protective equipment (PPE) This may decrease voice recognition accuracy Inadvertent pelt salter errors may occur 08/05/2024 Palpitations (ICD-10 - R00.2) #Weight Management 08/05/2024 She is now euglycemic and thriving, A1c 5.2 Continue current dosing model 10 mg Body composition analysis also improving with fat mass loss Of note, some information is being carried forward from prior records for informational purposes only and is being cited so that efficiency, safety and quality of the patient's care is not compromised This note was prepared using voice recognition software and direct typing Please excuse inadvertent pelt salter or typing errors, or uncorrected word substitutions Although every attempt has been made by the provider to proofread this document, occasional misspellings and typographical errors may still be present Due to the previous pandemic, and the use of personal protective equipment (PPE) This may decrease voice recognition accuracy Inadvertent pelt salter errors may occur 08/05/2024 Dyslipidemia (ICD-10 - E78.5) #Weight Management 08/05/2024 She is now euglycemic and thriving, A1c 5.2 Continue current dosing model 10 mg Body composition analysis also improving with fat mass loss Of note, some information is being carried forward from prior records for informational purposes only and is being cited so that efficiency, safety and quality of the patient's care is not compromised This note was prepared using voice recognition software and direct typing Please excuse inadvertent pelt salter or typing errors, or uncorrected word substitutions Although every attempt has been made by the provider to proofread this document, occasional misspellings and typographical errors may still be present Due to the previous pandemic, and the use of personal protective equipment (PPE) This may decrease voice recognition accuracy Inadvertent pelt salter errors may occur 06/22/2024 PCOS (polycystic ovarian syndrome) (ICD-10 - E28.2) Complex medical history as per HPI Prediabetic state, lets recheck her A1c at her next visit, will increase Zepbound to 10 mg Other chronic conditions are stable at this time Labs reviewed Of note, some information is being carried forward from prior records for informational purposes only and is being cited so that efficiency, safety and quality of the patient's care is not compromised This note was prepared using voice recognition software and direct typing Please excuse inadvertent pelt salter or typing errors, or uncorrected word substitutions Although every attempt has been made by the provider to proofread this document, occasional misspellings and typographical errors may still be present Due to the previous pandemic, and the use of personal protective equipment (PPE) This may decrease voice recognition accuracy Inadvertent pelt salter errors may occur 09/14/2024 Palpitations (ICD-10 - R00.2) Acute Concerns/Problem List: 09/14/2024 Increasing Zepbound dosing from 10 mg to 12.5 mg Discontinue HCTZ, no longer needed She is now euglycemic and thriving, A1c 5.2 Body composition analysis also improving with fat mass loss _update labs prior to next visit Of note, some information is being carried forward from prior records for informational purposes only and is being cited so that efficiency, safety and quality of the patient's care is not compromised This note was prepared using voice recognition software and direct typing Please excuse inadvertent pelt salter or typing errors, or uncorrected word substitutions Although every attempt has been made by the provider to proofread this document, occasional misspellings and typographical errors may still be present Due to the previous pandemic, and the use of personal protective equipment (PPE) This may decrease voice recognition accuracy Inadvertent pelt salter errors may occur 11/02/2024 Palpitations (ICD-10 - R00.2) #Weight Management 11/02/2024 Will continue seeing her for weight management Of note, some information is being carried forward from prior records for informational purposes only and is being cited so that efficiency, safety and quality of the patient's care is not compromised This note was prepared using voice recognition software and direct typing Please excuse inadvertent pelt salter or typing errors, or uncorrected word substitutions Although every attempt has been made by the provider to proofread this document, occasional misspellings and typographical errors may still be present Due to the previous pandemic, and the use of personal protective equipment (PPE) This may decrease voice recognition accuracy Inadvertent pelt salter errors may occur 11/02/2024 Dyslipidemia (ICD-10 - E78.5) #Weight Management 11/02/2024 Will continue seeing her for weight management Of note, some information is being carried forward from prior records for informational purposes only and is being cited so that efficiency, safety and quality of the patient's care is not compromised This note was prepared using voice recognition software and direct typing Please excuse inadvertent pelt salter or typing errors, or uncorrected word substitutions Although every attempt has been made by the provider to proofread this document, occasional misspellings and typographical errors may still be present Due to the previous pandemic, and the use of personal protective equipment (PPE) This may decrease voice recognition accuracy Inadvertent pelt salter errors may occur 09/14/2024 Dyslipidemia (ICD-10 - E78.5) Acute Concerns/Problem List: 09/14/2024 Increasing Zepbound dosing from 10 mg to 12.5 mg Discontinue HCTZ, no longer needed She is now euglycemic and thriving, A1c 5.2 Body composition analysis also improving with fat mass loss _update labs prior to next visit Of note, some information is being carried forward from prior records for informational purposes only and is being cited so that efficiency, safety and quality of the patient's care is not compromised This note was prepared using voice recognition software and direct typing Please excuse inadvertent pelt salter or typing errors, or uncorrected word substitutions Although every attempt has been made by the provider to proofread this document, occasional misspellings and typographical errors may still be present Due to the previous pandemic, and the use of personal protective equipment (PPE) This may decrease voice recognition accuracy Inadvertent pelt salter errors may occur 08/05/2024 PCOS (polycystic ovarian syndrome) (ICD-10 - E28.2) #Weight Management 08/05/2024 She is now euglycemic and thriving, A1c 5.2 Continue current dosing model 10 mg Body composition analysis also improving with fat mass loss Of note, some information is being carried forward from prior records for informational purposes only and is being cited so that efficiency, safety and quality of the patient's care is not compromised This note was prepared using voice recognition software and direct typing Please excuse inadvertent pelt salter or typing errors, or uncorrected word substitutions Although every attempt has been made by the provider to proofread this document, occasional misspellings and typographical errors may still be present Due to the previous pandemic, and the use of personal protective equipment (PPE) This may decrease voice recognition accuracy Inadvertent pelt salter errors may occur 09/14/2024 PCOS (polycystic ovarian syndrome) (ICD-10 - E28.2) Acute Concerns/Problem List: 09/14/2024 Increasing Zepbound dosing from 10 mg to 12.5 mg Discontinue HCTZ, no longer needed She is now euglycemic and thriving, A1c 5.2 Body composition analysis also improving with fat mass loss _update labs prior to next visit Of note, some information is being carried forward from prior records for informational purposes only and is being cited so that efficiency, safety and quality of the patient's care is not compromised This note was prepared using voice recognition software and direct typing Please excuse inadvertent pelt salter or typing errors, or uncorrected word substitutions Although every attempt has been made by the provider to proofread this document, occasional misspellings and typographical errors may still be present Due to the previous pandemic, and the use of personal protective equipment (PPE) This may decrease voice recognition accuracy Inadvertent pelt salter errors may occur 11/02/2024 PCOS (polycystic ovarian syndrome) (ICD-10 - E28.2) #Weight Management 11/02/2024 Will continue seeing her for weight management Of note, some information is being carried forward from prior records for informational purposes only and is being cited so that efficiency, safety and quality of the patient's care is not compromised This note was prepared using voice recognition software and direct typing Please excuse inadvertent pelt salter or typing errors, or uncorrected word substitutions Although every attempt has been made by the provider to proofread this document, occasional misspellings and typographical errors may still be present Due to the previous pandemic, and the use of personal protective equipment (PPE) This may decrease voice recognition accuracy Inadvertent pelt salter errors may occur 11/02/2024 Encounter for examination of blood pressure without abnormal findings (ICD-10 - Z01.30) #Weight Management 11/02/2024 Will continue seeing her for weight management Of note, some information is being carried forward from prior records for informational purposes only and is being cited so that efficiency, safety and quality of the patient's care is not compromised This note was prepared using voice recognition software and direct typing Please excuse inadvertent pelt salter or typing errors, or uncorrected word substitutions Although every attempt has been made by the provider to proofread this document, occasional misspellings and typographical errors may still be present Due to the previous pandemic, and the use of personal protective equipment (PPE) This may decrease voice recognition accuracy Inadvertent pelt salter errors may occur 09/14/2024 Encounter for examination of blood pressure without abnormal findings (ICD-10 - Z01.30) Acute Concerns/Problem List: 09/14/2024 Increasing Zepbound dosing from 10 mg to 12.5 mg Discontinue HCTZ, no longer needed She is now euglycemic and thriving, A1c 5.2 Body composition analysis also improving with fat mass loss _update labs prior to next visit Of note, some information is being carried forward from prior records for informational purposes only and is being cited so that efficiency, safety and quality of the patient's care is not compromised This note was prepared using voice recognition software and direct typing Please excuse inadvertent pelt salter or typing errors, or uncorrected word substitutions Although every attempt has been made by the provider to proofread this document, occasional misspellings and typographical errors may still be present Due to the previous pandemic, and the use of personal protective equipment (PPE) This may decrease voice recognition accuracy Inadvertent pelt salter errors may occur Plan Of Treatment Pending Test Test Name Order Date LIPID PANEL, STANDARD 09/14/2024 COMPREHENSIVE METABOLIC PANEL 09/14/2024 CBC (INCLUDES DIFF/PLT) 09/14/2024 URINALYSIS, COMPLETE 09/14/2024 HEMOGLOBIN A1c 09/14/2024 TSH 09/14/2024 VITAMIN D,25-OH,TOTAL,IA 09/14/2024 Next Appt Details Provider Name:IVELISSE ELLIS, 12/21/2024 02:30:00 PM, [address], [address], [place], [address], Insurance Providers Payer Name Payer Address Payer Phone Subscriber Number Group Number Insured Name Patient Relationship to Insured Coverage Start Date Coverage End Date [facility] [address] [place] [address] [id number] JANIE WHITMAN Self - patient is the insured Medical (General) History Medical History History ICD Code hypertension hypercholesterolemia breast cancer weight gain gallbladder disease headaches kidney disease anxiety depression Surgical History Surgery Date(Month/Year) hysterectomy 04/22/24 implant replacement 05/05/22 implant surgery 03/21/2022
--- OUTSIDE RECORDS SUMMARY | 2024-11-04 10:13 | XMS_ITS | Clinical Summary ---
Author Organization [facility] Address [address] [place] [address] Phone Care Team Providers Care Quality Assurance Name Role Phone Qamar Jacobs MD Primary Care Provider [phone] Social History Tobacco Use Types Packs/Day Years Used Date Smoking Tobacco: Never Assessed Comments Unknown Sex and Gender Information Value Date Recorded Sex Assigned at Not on file Legal Sex Female 10:04 PM EST Gender Identity Not on file Sexual Orientation Not on file Last Filed Vital Signs Vital Sign Reading Time Taken Comments Blood Pressure - - Pulse - - Temperature - - Respiratory Rate - - Oxygen Saturation - - Inhaled Oxygen Concentration - - Weight 115 kg (253 lb) 01/21/2024 9:05 AM EDT Height 162.6 cm (5' 4 ) 01/21/2024 9:05 AM EDT Body Mass Index 43.43 01/21/2024 9:05 AM EDT Plan of Treatment Health Maintenance Due Date Last Done Comments Breast Cancer Screening 1979 Hepatitis B Vaccines (1 of 3 - 19+ 3-dose series) 1998 Cervical Cancer Screening: P ap Smear 2000 Cholesterol Screening (Lipid Panel) 03/08/2022 Colorectal Cancer Screening: Colonoscopy 03/08/2022 HIV Screening 03/08/2022 Hepatitis C Screening 03/08/2022 Social Influencers of Health Screening 03/08/2022 COVID-19 Vaccine ( - 2023-2 5 season) 2023 05/10/2021, 08/01/2020 Depression Screening 04/06/2024 Influenza Vaccine (#1) 2024 8, 01/16/2017, 07/13/2015 DTaP,Tdap,and Td Vaccines (4 - Td or Tdap) 07/12/2025 07/13/2015, 10/18/2010, 08/30/1998 Pneumococcal Vaccine: Pediatrics (0 to 5 Years) and At-Risk Patients (6 to 49 Years) Aged Out 02/04/2019, 11/25/2018 No longer eligible based on patient's age to complete this topic HIB Vaccines Aged Out No longer eligi ble based on patient's age to complete this topic HPV Vaccines Aged Out No longer eligi ble based on patient's age to complete this topic Hepatitis A Vaccines Aged Out No long er eligible based on patient's age to complete this topic IPV Vaccines Aged Out No longer eligi ble based on patient's age to complete this topic MMR Vaccines Aged Out No longer eligi ble based on patient's age to complete this topic Meningococcal ACWY Vaccine Aged Out N o longer eligible based on patient's age to complete this topic Meningococcal B Vaccine Aged Out No l onger eligible based on patient's age to complete this topic RSV Immunization Patients Under 20 months Aged Out No longer eligible b ased on patient's age to complete this topic Varicella Vaccines Aged Out No longer eligible based on patient's age to complete this topic Care Teams Quality Assurance Relationship Specialty Start Date End Date Qamar Jacobs MD [address] [place], [place] [id number] PCP - General 01/27/12
[2024-11-04 10:18] VITALS: BP 126/78; PULSE 70; O2SAT 99; BMI 38.1
== END 2024-11-04 10:36 | disposition home or self-care (01) ==
LOC: HO.HGI 10:04
PROVIDERS: PCP Registered Nurse; Visit Provider Nurse Practitioner Family
DX: Z86.19 Personal history of other infectious and parasitic diseases (principal); R14.0 Abdominal distension (gaseous); K21.00 Gastro-esophageal reflux disease with esophagitis, without bleeding; K59.01 Slow transit constipation; K52.9 Noninfective gastroenteritis and colitis, unspecified; Z87.19 Personal history of other diseases of the digestive system
CPT/HCPCS: 99214; G2211